=== PATIENT | male | born 1960 | race Caucasian/White ===

== ENCOUNTER 2018-06-05 22:07 | Observation (INO) | payer OTHER ==
[2018-06-05] MEDS ORDERED: MORPHINE 4 MG/ML SYR ONE ×2 (22:39→23:47)
[2018-06-05] MEDS ORDERED: KETOROLAC 30 MG/ML INJ ONE (22:39)
[2018-06-05] MEDS ORDERED: NA CHLORIDE 0.9% 1,000 ML ONE (22:40)
[2018-06-05] MEDS ORDERED: ONDANSETRON 4 MG/2 ML VIAL ONE (22:40)
[2018-06-05 22:56] LABS: Absolute Lymphocytes (CBC) 1.5 K/uL (0.7-4.9); Absolute Monocytes 0.9 K/uL (0.1-1.3); Absolute Neutrophil 11.1 K/uL (1.8-8.0); Basophils % 0.4 % (0-1.3); Eosinophils % 0.8 % (0-4.4); Lymphocytes % 11.2 % (15.3-44.8); MCH 30.9 pg (27.0-35.0); MCV 91.3 fL (80-100); MPV 8.6 fL (7.6-11.3); Monocytes % 6.3 % (3.3-12.3); RBC Red Blood Cell Count 5.03 M/uL (4.33-5.43)
[2018-06-05 23:12] LABS: Albumin 4.1 g/dL (3.4-5.0); Bilirubin Direct 0.1 mg/dL (0-0.2); Bilirubin Total 0.4 mg/dL (0.2-1.0); Potassium 3.9 mmol/L (3.5-5.1); Protein, Total 7.4 g/dL (6.4-8.2)
--- NOTE | 2018-06-05 23:57 | EDPHYS ---
Physician Documentation [facility] Name: Chau Rubio Age: 58 yrs Sex: Male : 1960 Arrival Date: 06/05/2018 Time: 22:10 Bed 28 Private MD: ED Physician Keith Tristan HPI: 06/05 22:31 This 58 yrs old Male presents to ER via Ambulatory with complaints of phong Possible Kidney Stone, Urinary Retention. 22:31 The patient complains of pain in the right mid back and right low back. The pain phong radiates to the right mid back and right low back. Onset: The symptoms/episode began/occurred 1 day(s) ago. Modifying factors: The symptoms are alleviated by nothing. the symptoms are aggravated by nothing. The patient presents with pain that is acute, with no known mechanism of injury. The symptoms are located in the right mid back and right low back. Onset: The symptoms/episode began/occurred today. Associated signs and symptoms: Pertinent positives: hematuria, nausea, vomiting. Modifying factors: The patient symptoms are alleviated by nothing, the patient symptoms are aggravated by nothing. Historical: - Allergies: 22:15 PENICILLINS; fc - Home Meds: 22:15 metformin 500 mg Oral tab 1 tab nightly [Active]; cholesterol medication [Active]; fc - PMHx: 22:15 Kidney stones; Diabetes - NIDDM; High Cholesterol; fc 22:17 cancer - prostate; knee surg; fc - PSHx: 22:15 Lithotripsy; kidney stone removal; Hernia repair; fc 22:17 Knee surgery; prostate surg; fc - Immunization history:: Last tetanus immunization: up to date. - Social history:: Smoking status: Patient/guardian denies using tobacco. - Ebola Screening: : Patient negative for fever greater than or equal to 101.5 degrees Fahrenheit, and additional compatible Ebola Virus Disease symptoms Patient denies exposure to infectious person Patient denies travel to an Ebola-affected area in the 21 days before illness onset. - Family history:: not pertinent. ROS: 22:31 Constitutional: Negative for fever, chills, and weight loss, Eyes: Negative for injury, phong pain, redness, and discharge, ENT: Negative for injury, pain, and discharge, Neck: Negative for injury, pain, and swelling, Cardiovascular: Negative for chest pain, palpitations, and edema, Respiratory: Negative for shortness of breath, cough, wheezing, and pleuritic chest pain, : Negative for injury, bleeding, discharge, and swelling, MS/Extremity: Negative for injury and deformity, Skin: Negative for injury, rash, and discoloration, Neuro: Negative for headache, weakness, numbness, tingling, and seizure, Psych: Negative for depression, anxiety, suicide ideation, homicidal ideation, and hallucinations, Allergy/Immunology: Negative for hives, rash, and allergies, Endocrine: Negative for neck swelling, polydipsia, polyuria, polyphagia, and marked weight changes, Hematologic/Lymphatic: Negative for swollen nodes, abnormal bleeding, and unusual bruising. 22:31 Abdomen/GI: Positive for abdominal pain, of the anterior aspect of right lateral abdomen, posterior aspect of right lateral abdomen and right lower quadrant. Exam: 22:31 Constitutional: This is a well developed, well nourished patient who is awake, alert, phong and in no acute distress. Head/Face: Normocephalic, atraumatic. Eyes: Pupils equal round and reactive to light, extra-ocular motions intact. Lids and lashes normal. Conjunctiva and sclera are non-icteric and not injected. Cornea within normal limits. Periorbital areas with no swelling, redness, or edema. ENT: Nares patent. No nasal discharge, no septal abnormalities noted. Tympanic membranes are normal and external auditory canals are clear. Oropharynx with no redness, swelling, or masses, exudates, or evidence of obstruction, uvula midline. Mucous membranes moist. Neck: Trachea midline, no thyromegaly or masses palpated, and no cervical lymphadenopathy. Supple, full range of motion without nuchal rigidity, or vertebral point tenderness. No Meningismus. Chest/axilla: Normal chest wall appearance and motion. Nontender with no deformity. No lesions are appreciated. Cardiovascular: Regular rate and rhythm with a normal S1 and S2. No gallops, murmurs, or rubs. Normal PMI, no JVD. No pulse deficits. Respiratory: Lungs have equal breath sounds bilaterally, clear to auscultation and percussion. No rales, rhonchi or wheezes noted. No increased work of breathing, no retractions or nasal flaring. Male : Normal genitalia with no discharge or lesions. Skin: Warm, dry with normal turgor. Normal color with no rashes, no lesions, and no evidence of cellulitis. MS/ Extremity: Pulses equal, no cyanosis. Neurovascular intact. Full, normal range of motion. Neuro: Awake and alert, GCS 15, oriented to person, place, time, and situation. Cranial nerves II-XII grossly intact. Motor strength 5/5 in all extremities. Sensory grossly intact. Cerebellar exam normal. Normal gait. Psych: Awake, alert, with orientation to person, place and time. Behavior, mood, and affect are within normal limits. 22:31 Abdomen/GI: Inspection: abdomen appears normal, Bowel sounds: normal, Palpation: nontender, Liver: no appreciated palpable abnormalities. Vital Signs: 22:15 BP 172 / 73; Pulse 71; Resp 18; Temp 98.0(O); Pulse Ox 96% on R/A; Weight 90.72 kg (R); fc Height 5 ft. 8 in. (172.72 cm) (R); Pain 10/10; 23:11 BP 138 / 68; Pulse 55; Pulse Ox 93% on R/A; rv 06/06 00:37 BP 134 / 68; Pulse 52; Pulse Ox 94% on R/A; rv 06/05 22:15 Body Mass Index 30.41 (90.72 kg, 172.72 cm) fc MDM: 06/05 22:25 Patient medically screened. [facility] 22:33 Data reviewed: vital signs, nurses notes, lab test result(s), radiologic studies, phong doppler. 06/05 22:30 Order name: Amylase, Serum; Complete Time: 23:51 [facility] 06/05 22:30 Order name: Basic Metabolic Panel; Complete Time: 23:51 [facility] 06/05 22:30 Order name: CBC with Diff; Complete Time: 23:51 [facility] 06/05 22:30 Order name: Creatinine for Radiology; Complete Time: 23:51 [facility] 06/05 22:30 Order name: Hepatic Function; Complete Time: 23:51 [facility] 06/05 22:30 Order name: Lipase; Complete Time: 23:51 [facility] 06/05 22:30 Order name: Urine Microscopic Only [facility] 06/05 22:30 Order name: Abdomen 1 View (KUB) XRAY [facility] 06/05 22:30 Order name: Urine Culture [facility] 06/05 22:30 Order name: CT Stone Protocol [facility] 08/08 00:02 Order name: Abdomen 1 View (KUB) [facility] 06/05 22:30 Order name: IV Saline Lock; Complete Time: 22:32 [facility] 06/05 22:30 Order name: Labs collected and sent; Complete Time: 22:32 [facility] 06/06 00:02 Order name: CONS Physician Consult [facility] 06/06 00:05 Order name: NPO [facility] Administered Medications: 22:25 Drug: TORadol 30 mg Route: IVP; Site: left antecubital; rv 23:10 Follow up: Response: No adverse reaction; Pain is decreased rv 22:25 Drug: morphine 4 mg Route: IVP; Site: left antecubital; rv 23:10 Follow up: Response: No adverse reaction; Pain is decreased rv 22:25 Drug: Zofran 4 mg Route: IVP; Site: left antecubital; rv 23:10 Follow up: Response: No adverse reaction; Pain is decreased rv 22:46 Drug: NS 0.9% 1000 ml Route: IV; Rate: 1 bolus; Site: left antecubital; rv 06/06 01:19 Follow up: IV Status: Completed infusion rv 06/05 23:51 Drug: morphine 4 mg Route: IVP; Site: left antecubital; rv 06/06 01:19 Follow up: Response: No adverse reaction rv 00:18 Drug: NS 0.9% 1000 ml Route: IV; Rate: 1 bolus; Site: left antecubital; rv 01:19 Follow up: IV Status: Completed infusion rv 00:18 Drug: Mucomyst - Acetylcysteine 600 mg Route: PO; rv 01:19 Follow up: Response: No adverse reaction rv Disposition: 06/05/18 23:56 Hospitalization ordered by Neville Guillen for Observation. Preliminary diagnosis are Hydronephrosis with renal and ureteral calculous obstruction - 5 mm distal right ureter calculi, Type 2 diabetes mellitus, Unspecified kidney failure. - Bed requested for Telemetry/MedSurg (observation). - Status is Observation. rv - Condition is Stable. - Problem is new. - Symptoms have improved. UTI on Admission? No Signatures: Dispatcher [employer] [facility] Hal Mendoza rg2 Keith Tristan MD MD cha Chretien, Felicia, RN RN Robin Mcintyre RN RN rv Corrections: (The following items were deleted from the chart) :06/05 23:56 Hospitalization Ordered by Neville Guillen MD for Observation. Preliminary rg2 diagnosis is Hydronephrosis with renal and ureteral calculous obstruction - 5 mm distal right ureter calculi; Type 2 diabetes mellitus; Unspecified kidney failure. Bed requested for Telemetry/MedSurg (observation). Status is Observation. Condition is Stable. Problem is new. Symptoms have improved. UTI on Admission? No. phong 06/06 01:20 01:06/05/2018 23:56 Hospitalization Ordered by Neville Guillen MD for Observation. rv Preliminary diagnosis is Hydronephrosis with renal and ureteral calculous obstruction - 5 mm distal right ureter calculi; Type 2 diabetes mellitus; Unspecified kidney failure. Bed requested for Telemetry/MedSurg (observation). Status is Observation. Condition is Stable. Problem is new. Symptoms have improved. UTI on Admission? No. rg2
--- NOTE | 2018-06-05 23:57 | ER ---
Nurse's Notes [facility] Name: Chau Rubio Age: 58 yrs Sex: Male : 1960 Arrival Date: 06/05/2018 Time: 22:10 Bed 28 Private MD: Diagnosis: Hydronephrosis with renal and ureteral calculous obstruction-5 mm distal right ureter calculi;Type 2 diabetes mellitus;Unspecified kidney failure Presentation: 06/05 22:12 Presenting complaint: Patient states: that he has pain to right flank and thinks he has fc a kidney stone. Also unable to urinate. Last void was at 1600. Transition of care: patient was not received from another setting of care. Onset of symptoms was June 05, 2018. Risk Assessment: Do you want to hurt yourself or someone else? Patient reports no desire to harm self or others. Care prior to arrival: None. 22:12 Method Of Arrival: Ambulatory 22:12 Acuity: ABRAHAN 3 22:44 Initial Sepsis Screen: Does the patient meet any 2 criteria? No. Patient's initial rv sepsis screen is negative. Does the patient have a suspected source of infection? No. Patient's initial sepsis screen is negative. Historical: - Allergies: 22:15 PENICILLINS; fc - Home Meds: 22:15 metformin 500 mg Oral tab 1 tab nightly [Active]; cholesterol medication [Active]; fc - PMHx: 22:15 Kidney stones; Diabetes - NIDDM; High Cholesterol; fc 22:17 cancer - prostate; knee surg; fc - PSHx: 22:15 Lithotripsy; kidney stone removal; Hernia repair; 22:17 Knee surgery; prostate surg; fc - Immunization history:: Last tetanus immunization: up to date. - Social history:: Smoking status: Patient/guardian denies using tobacco. - Ebola Screening: : Patient negative for fever greater than or equal to 101.5 degrees Fahrenheit, and additional compatible Ebola Virus Disease symptoms Patient denies exposure to infectious person Patient denies travel to an Ebola-affected area in the 21 days before illness onset. - Family history:: not pertinent. Screenin:17 Abuse screen: Denies threats or abuse. Nutritional screening: No deficits noted. fc Tuberculosis screening: No symptoms or risk factors identified. Fall Risk None identified. Assessment: 22:15 General: Appears in no apparent distress. uncomfortable, Behavior is calm, cooperative. rv 22:15 Pain: Complains of pain in FLANK PAIN ON THE RIGHT AND LOWER ABDMOEN/BLADDER. Pain rv currently is 8 out of 10 on a pain scale. Neuro: Level of Consciousness is awake, alert, obeys commands, Oriented to person, place, time, situation. Cardiovascular: Capillary refill < 3 seconds. Respiratory: Airway is patent. GI: Bowel sounds present X 4 quads. Abd is soft and non tender. : No signs and/or symptoms were reported regarding the genitourinary system. EENT: No signs and/or symptoms were reported regarding the EENT system. Derm: Skin is intact. 23:14 Reassessment: Patient appears in no apparent distress at this time. Patient and/or rv family updated on plan of care and expected duration. Pain level reassessed. Patient is alert, oriented x 3, equal unlabored respirations, skin warm/dry/pink. PAIN DECREASED. 06/06 00:39 Reassessment: Patient appears in no apparent distress at this time. Patient and/or rv family updated on plan of care and expected duration. Pain level reassessed. Patient is alert, oriented x 3, equal unlabored respirations, skin warm/dry/pink. AWAITING ADMISSION ORDERS. Vital Signs: 06/05 22:15 BP 172 / 73; Pulse 71; Resp 18; Temp 98.0(O); Pulse Ox 96% on R/A; Weight 90.72 kg (R); Height 5 ft. 8 in. (172.72 cm) (R); Pain 10/10; 23:11 BP 138 / 68; Pulse 55; Pulse Ox 93% on R/A; rv 06/06 00:37 BP 134 / 68; Pulse 52; Pulse Ox 94% on R/A; rv 06/05 22:15 Body Mass Index 30.41 (90.72 kg, 172.72 cm) ED Course: 06/05 22:10 Patient arrived in ED. es 22:13 Triage completed. fc 22:15 No provider procedures requiring assistance completed. Inserted saline lock: 20 gauge rv in left antecubital area, using aseptic technique. 22:17 Arm band placed on Patient placed in an exam room, on a stretcher. fc 22:18 Patient has correct armband on for positive identification. Bed in low position. Call light in reach. 22:25 Keith Tristan MD is Attending Physician. phong 22:[address] 22:41 CT completed. Patient tolerated procedure well. Patient moved to radiology. ca 22:49 CT Stone Protocol In Process Unspecified. EDMS 22:53 Abdomen 1 View (KUB) XRAY In Process Unspecified. EDMS 23:14 Awaiting radiology results. rv 23:54 Neville Guillen MD is Hospitalizing Provider. [facility] 06/06 01:18 Patient admitted, IV remains in place. intact. rv Administered Medications: 06/05 22:25 Drug: TORadol 30 mg Route: IVP; Site: left antecubital; rv 23:10 Follow up: Response: No adverse reaction; Pain is decreased rv 22:25 Drug: morphine 4 mg Route: IVP; Site: left antecubital; rv 23:10 Follow up: Response: No adverse reaction; Pain is decreased rv 22:25 Drug: Zofran 4 mg Route: IVP; Site: left antecubital; rv 23:10 Follow up: Response: No adverse reaction; Pain is decreased rv 22:46 Drug: NS 0.9% 1000 ml Route: IV; Rate: 1 bolus; Site: left antecubital; rv 06/06 01:19 Follow up: IV Status: Completed infusion rv 06/05 23:51 Drug: morphine 4 mg Route: IVP; Site: left antecubital; rv 06/06 01:19 Follow up: Response: No adverse reaction rv 00:18 Drug: NS 0.9% 1000 ml Route: IV; Rate: 1 bolus; Site: left antecubital; rv 01:19 Follow up: IV Status: Completed infusion rv 00:18 Drug: Mucomyst - Acetylcysteine 600 mg Route: PO; rv 01:19 Follow up: Response: No adverse reaction rv Outcome: 06/05 23:56 Decision to Hospitalize by Provider. [facility] 06/06 01:17 Admitted to Tele accompanied by nurse, via wheelchair, room 420, with chart, Report rv called to HALLIE Condition: good 01:20 Patient left the ED. rv Signatures: Dispatcher [employer] Keith Rizzo MD MD cha Salyer, Edna es Chretien, Felicia, RN RN fc Warren, Shannon sw Jordan, Nathan nj Vicente, Ronaldo, RN RN rv Corrections: (The following items were deleted from the chart) 06/05 22:17 22:15 Pulse 71bpm; Resp 18bpm; Pulse Ox 96% RA; Temp 98.0F Oral; 90.72 kg Reported; fc Height 5 ft. 8 in. Reported; BMI: 30.4; Pain 08/08; fc 06/06 01:19 01:17 Admitted to Tele accompanied by nurse, via wheelchair, room 429, with chart, rv Report called to HALLIE baker
[2018-06-06] MEDS ORDERED: ACETYLCYST 6,000 MG/30 ML VIAL ONE (00:16)
[2018-06-06] MEDS ORDERED: NA CHLORIDE 0.9% 1,000 ML ONE ×2 (00:29→12:34)
--- NOTE | 2018-06-06 01:16 | P.HP ---
Certification for Inpatient Patient admitted to: Observation With expected LOS: <2 Midnights Practitioner: I am a practitioner with admitting privileges, knowledge of patient current condition, hospital course, and medical plan of care. Services: Services provided to patient in accordance with Admission requirements found in Title 42 Section 412.3 of the Code of Federal Regulations Patient History Date of Service: 06/06/18 Reason for admission: obstructive ureteral stone History of Present Illness: Mr Rubio is a 58 years old male with history of DM II, nephrolithiasis, dyslipidemia who start yesterday afternoon with right flank pain, radiated to right lower quadrant. Intensity is 10/10. He has had this kind of pain in the past. He denied nausea, vomiting, fever or chills. The patient is unable to urinate, last time was 1600 last afternoon. Lab work in ED shows 13.7 WBC, Creatinine is 1.7. CT abdomen and pelvis is remarkable for a right distal ureteral stone, about 5 mm, leading with moderate right hydronephrosis and hydroureter. Allergies Penicillins Allergy (Verified 06/06/18 00:22) Itching/Hives/Rash - Past Medical/Surgical History -: DM II -: kidney stones -: prostate cancer -: lithotripsy -: hernia repair -: knee surgery - Family History Family History: Reviewed- Non-Contributory - Social History Smoking Status: Former smoker Alcohol use: Yes CD- Drugs: No Place of Residence: Home Review of Systems 10-point ROS is otherwise unremarkable Physical Examination - Physical Exam General: Alert, In no apparent distress HEENT: Atraumatic, PERRLA, Mucous membr. moist/pink, EOMI, Sclerae nonicteric Neck: Supple, 2+ carotid pulse no bruit, No LAD, Without JVD or thyroid abnormality Respiratory: Clear to auscultation bilaterally, Normal air movement Cardiovascular: Regular rate/rhythm, Normal S1 S2 Gastrointestinal: Normal bowel sounds, Tenderness (right lower quadrant, right flank) Musculoskeletal: No tenderness Integumentary: No rashes Neurological: Normal speech, Normal strength at 5/5 x4 extr, Normal tone, Normal affect Lymphatics: No axilla or inguinal lymphadenopathy - Studies Laboratory Data (last 24 hrs) 06/05/18 22:15: Creatinine 1.70 H 06/05/18 22:15: WBC 13.7 H, Hgb 15.6, Hct 46.0, Plt Count 251 08/07/18 22:15: Sodium 144, Potassium 3.9, BUN 22 H, Creatinine 1.70 H, Glucose 134 H, Total Bilirubin 0.4, AST 13 L, ALT 32, Alkaline Phosphatase 53, Amylase 43, Lipase 151 Assessment and Plan - Problems (Diagnosis) (1) Ureteral stone with hydronephrosis Current Visit: Yes Status: Acute (2) Hydroureter Current Visit: Yes Status: Acute (3) Diabetes mellitus Current Visit: Yes Status: Acute Qualifiers: Diabetes mellitus type: type 2 Diabetes mellitus detention insulin use: without detention use Diabetes mellitus complication status: with unspecified complications Qualified Code(s): E11.8 - Type 2 diabetes mellitus with unspecified complications - Plan The patient will be admitted to the hospital due to obstructive right ureteral stone. Dr Barraza has been consulted, and will see the patient in AM. Will keep him NPO for potential cystoscopy tomorrow. Will order empiric antibiotic treatment. - Advance Directives Does patient have a Living Will: No Does patient have a Durable POA for Healthcare: No - Code Status/Comfort Care Code Status Assessed: Yes Code Status: Full Code
[2018-06-06] MEDS ORDERED: ACETAMINOPHEN 500 MG TAB PO PRN (01:30)
[2018-06-06] MEDS ORDERED: ONDANSETRON 4 MG/2 ML VIAL IV PRN (01:30)
[2018-06-06] MEDS: MORPHINE 4 MG/ML SYR IV PRN ×2 (01:56→05:48)
[2018-06-06] MEDS: NA CHLORIDE 0.9% 1,000 ML IV SCH ×2 (01:56→09:00)
[2018-06-06] MEDS ORDERED: Levofloxacin500mg IV 500 MG/100 ML BAG IV SCH (02:00)
[2018-06-06] MEDS: INSULIN -REGULAR HUMAN 50 UNIT/0.5 ML ML SQ SCH ×2 (05:51→12:00)
--- NOTE | 2018-06-06 06:52 | RAD REPORT ---
EXAM DESCRIPTION: CT - Stone Protocol - 06/06/2018 4:39 am CLINICAL HISTORY: Right flank pain, dysuria, history of kidney stones A preliminary written report was provided at the time of the study, and the report was reviewed prio r to final dictation. COMPARISON: CT stone December 2016 TECHNIQUE: Axial 5 mm thick images were obtained without oral or IV contrast. The [id number] span s the entirety of the system including uppermost abdomen and lung bases. All CT scans are performed using dose optimization technique as appropriate and may include automated exposure control or mA/KV adjustment according to patient size. FINDINGS: Moderate right-sided hydronephrosis is present secondary to a 5 mm distal right ureteral c alculus. Calculus is approximately 3 cm from the UVJ. No other ureteral calculi. There is a [address] calcification lower pole calyx on the right. Right-sided perinephric stranding seen. No left-side d calcifications or hydronephrosis. No suspicious renal masses. Isodense masses and pyelonephritis ar e not excluded on a stone protocol CT scan. Urinary bladder is contracted limiting assessment. Bladde r calculus is not suspected. Imaged portions of the liver, spleen and pancreas show no suspicious findings on non-contrast imaging . No gallbladder or biliary tree abnormality identified. No significant adrenal finding. No suspicious bowel findings. No mass or bulky lymphadenopathy. Left inguinal hernia surgical changes are noted. There is a small f at filled right inguinal hernia. No free air, free fluid or inflammatory stranding. No significant bony abnormality. IMPRESSION: Moderate right-sided hydronephrosis secondary to a 5 millimeter distal ureteral calculus . Stone is approximately 3 cm from the UVJ. Nonobstructing 5 mm calcification lower pole calyx on the right. Isodense masses and pyelonephritis are not excluded on stone protocol technique. Postsurgical changes to the left inguinal canal. Small right inguinal hernia containing only fat.
--- NOTE | 2018-06-06 06:54 | RAD REPORT ---
EXAM DESCRIPTION: RAD - Abdomen 1 View (KUB) - 06/05/2018 10:54 pm CLINICAL HISTORY: Right flank pain COMPARISON: CT study same date, KUB April 2017 FINDINGS: A 5 mm irregular shaped calcific density is present in the lower right pelvis. Size and lo cation would correspond to the distal right ureteral stone seen on the CT examination. This density w as not present on April 2017 study. No calcifications confirmed overlying either kidney. The lower ashley e calcification of the right kidney on the CT study is not clearly seen on this examination. No obstruction, free air or pneumatosis. Bowel gas pattern is nonspecific. Left inguinal hernia surgi christelle changes noted. No significant bony findings IMPRESSION: Approximately 5 mm irregular calcification lower right pelvis suspected to be obstructin g ureteral calculus.
--- NOTE | 2018-06-06 10:25 | P.PN ---
Subjective Date of Service: 06/06/18 Primary Care Provider: Dr. Hill([facility]); Urology-Dr. Barraza Chief Complaint: obstructive ureteral stone Subjective: Other (Pain controlled.) Physical Examination - Vital Signs Temperature: 97.0 F Blood Pressure: 134/70 Pulse: 61 Respirations: 18 Pulse Ox (%): 94 - Physical Exam General: Alert, In no apparent distress, Oriented x3, Cooperative HEENT: Atraumatic Neck: Supple Respiratory: Clear to auscultation bilaterally, Normal air movement Cardiovascular: Normal pulses, Regular rate/rhythm Gastrointestinal: Normal bowel sounds, Soft and benign, Non-distended, No masses , No rebound, No guarding, Tenderness (Mild pain to the right flank) Musculoskeletal: No erythema, No tenderness, No warmth Integumentary: No erythema, No warmth, No cyanosis Neurological: Normal speech, Normal strength at 5/5 x4 extr, Normal tone, Normal affect - Studies Laboratory Data (last 24 hrs) 06/05/18 22:15: Creatinine 1.70 H 06/05/18 22:15: WBC 13.7 H, Hgb 15.6, Hct 46.0, Plt Count 251 06/05/18 22:15: Sodium 144, Potassium 3.9, BUN 22 H, Creatinine 1.70 H, Glucose 134 H, Total Bilirubin 0.4, AST 13 L, ALT 32, Alkaline Phosphatase 53, Amylase 43, Lipase 151 Medications List Reviewed: Yes Assessment & Plan - Problems (Diagnosis) (1) Acute renal injury Current Visit: Yes Status: Acute Plan: Secondary to right ureteral stone with hydronephrosis. Patient currently NPO. Urology consulted. Patient will likely need urological intervention. Await further recommendation. (2) Diabetes mellitus Onset Date: 06/06/18 Current Visit: Yes Status: Chronic Plan: Will hold metformin at this time. Will continue with Accu-Cheks and sliding scale. Will check A1c. Qualifiers: Diabetes mellitus type: type 2 Diabetes mellitus [facility] insulin use: without intermodal customer service use Diabetes mellitus complication status: with unspecified complications Qualified Code(s): E11.8 - Type 2 diabetes mellitus with unspecified complications (3) Hydroureter Onset Date: 06/06/18 Current Visit: Yes Status: Acute Plan: Secondary to ureteral stone. Continue as above. Urology plans for intervention. (4) Ureteral stone with hydronephrosis Onset Date: 06/06/18 Current Visit: Yes Status: Acute Plan: 5 mm right ureteral stone noted to the distal ureter with hydronephrosis. Patient NPO for possible urological intervention. Urology consulted. (5) Nephrolithiasis Current Visit: Yes Status: Chronic Plan: 3 mm nonobstructing stone noted (6) Obesity Current Visit: Yes Status: Chronic Plan: Will address lifestyle modification education. Qualifiers: Obesity type: unspecified obesity type Obesity classification: adult class 1 (BMI 30 - 34.9) Serious obesity comorbidity presence: with serious comorbidity Body mass index: BMI 30.0-30.9 Qualified Code(s): E66.9 - Obesity, unspecified; Z68.30 - Body mass index (BMI) 30.0-30.9, adult (7) Hyperlipidemia Current Visit: Yes Status: Chronic Plan: Will hold his medication at this time. Qualifiers: Hyperlipidemia type: unspecified Qualified Code(s): E78.5 - Hyperlipidemia , unspecified Discharge Plan: Home Plan to discharge in: 24 Hours Time Spent Managing Pts Care (In Minutes): 55
[2018-06-06] MEDS ORDERED: NACHLORIDE 0.45% 1,000 ML IV SCH (11:00)
[2018-06-06] MEDS ORDERED: GENTAMICIN 100 MG/100 ML BAG 100 MG/100 ML BAG IV ONE (12:44)
[2018-06-06] MEDS ORDERED: PROPOFOL 200 MG/20 ML VIAL IV ONE (12:47)
[2018-06-06] MEDS ORDERED: LIDOCAINE 2% MPF 5 ML VIAL ONE (12:48)
[2018-06-06] MEDS ORDERED: FENTANYL CITR 100 MCG/2 ML ONE (12:48)
[2018-06-06] MEDS ORDERED: Mastisol Adhesive Liq ONE (13:43)
--- NOTE | 2018-06-06 14:14 | RAD REPORT ---
EXAM DESCRIPTION: RAD - Urethrocystogrphy Retrograde - 06/06/2018 2:09 pm CLINICAL HISTORY: RETROGRADE RT KIDNEY STONE COMPARISON: No comparisons FINDINGS: Fluoroscopic imaging of the abdomen is submitted as part of a retrograde urethrocystogram. Details of the procedure and diagnostic findings are not available. Total fluoro time: 37 seconds.
[2018-06-06 14:39] LABS: Urine Bacteria <20 /HPF (NONE SEEN); Urine RBC LOADED /HPF (NONE SEEN)
[2018-06-06 14:40] LABS: Urine Culture Reflex Order NOT NEEDED
--- NOTE | 2018-06-06 16:35 | P.DS ---
Admission Date: 06/05/18 Discharge Date: 06/06/18 Primary Care Provider: Dr. Hill([facility]); Urology-Dr. Barraza Disposition: ROUTINE DISCHARGE Discharge Condition: GOOD Reason for Admission: obstructive ureteral stone Consultations: Urology-Dr. Barraza Procedures: CT scan: COMPARISON: CT stone December 2016 TECHNIQUE: Axial 5 mm thick images were obtained without oral or IV contrast. The [id number] spans the entirety of the system including uppermost abdomen and lung bases. All CT scans are performed using dose optimization technique as appropriate and may include automated exposure control or mA/KV adjustment according to patient size. FINDINGS: Moderate right-sided hydronephrosis is present secondary to a 5 mm distal right ureteral calculus. Calculus is approximately 3 cm from the UVJ. No other ureteral calculi. There is a 5 millimeter calcification lower pole calyx on the right. Right-sided perinephric stranding seen. No left-sided calcifications or hydronephrosis. No suspicious renal masses. Isodense masses and pyelonephritis are not excluded on a stone protocol CT scan. Urinary bladder is contracted limiting assessment. Bladder calculus is not suspected. Imaged portions of the liver, spleen and pancreas show no suspicious findings on non-contrast imaging. No gallbladder or biliary tree abnormality identified. No significant adrenal finding. No suspicious bowel findings. No mass or bulky lymphadenopathy. Left inguinal hernia surgical changes are noted. There is a small fat filled right inguinal hernia. No free air, free fluid or inflammatory stranding. No significant bony abnormality. IMPRESSION: Moderate right-sided hydronephrosis secondary to a 5 millimeter distal ureteral calculus. Stone is approximately 3 cm from the UVJ. Nonobstructing 5 mm calcification lower pole calyx on the right. Isodense masses and pyelonephritis are not excluded on stone protocol technique. Postsurgical changes to the left inguinal canal. Small right inguinal hernia containing only fat. - Problems (1) Acute renal injury Current Visit: Yes Status: Acute (2) Diabetes mellitus Onset Date: 06/06/18 Current Visit: Yes Status: Chronic Qualifiers: Diabetes mellitus type: type 2 Diabetes mellitus [facility] insulin use: without buttermaker helper use Diabetes mellitus complication status: with unspecified complications Qualified Code(s): E11.8 - Type 2 diabetes mellitus with unspecified complications (3) Hydroureter Onset Date: 06/06/18 Current Visit: Yes Status: Acute (4) Ureteral stone with hydronephrosis Onset Date: 06/06/18 Current Visit: Yes Status: Acute (5) Nephrolithiasis Current Visit: Yes Status: Chronic (6) Obesity Current Visit: Yes Status: Chronic Qualifiers: Obesity type: unspecified obesity type Obesity classification: adult class 1 (BMI 30 - 34.9) Serious obesity comorbidity presence: with serious comorbidity Body mass index: BMI 30.0-30.9 Qualified Code(s): E66.9 - Obesity, unspecified; Z68.30 - Body mass index (BMI) 30.0-30.9, adult (7) Hyperlipidemia Current Visit: Yes Status: Chronic Qualifiers: Hyperlipidemia type: unspecified Qualified Code(s): E78.5 - Hyperlipidemia , unspecified Brief History of Present Illness: 58-year-old male presented to the ER with right flank pain. Patient had difficulty urinating as well. Patient with history of nephrolithiasis. Patient was evaluated emergency room found to have right ureteral stone with hydronephrosis. Patient was admitted for treatment. Hospital Course: Patient presented with right ureteral stone with hydronephrosis and acute renal injury. 5 mm distal right ureteral stone was noted. Another stone 5 mm in size was noted to the lower pole calyx on the right side. Patient with history of nephrolithiasis and previous stents. Patient was evaluated by urology. Urology recommended intervention. Patient had ureteroscopy with a dilation and removal of stone. A stent was also placed. Patient tolerated procedure well. Patient doing well after procedure. Patient will be discharged. At discharge patient will continue with Macrobid 50 mg once daily for 7 days, oxybutynin 10 mg 1 pill once daily, and a limited supply of Tylenol #3 will be provided. All prescriptions will be provided by urology. Recommendation for the patient to follow up with urology within 1 week to follow up this hospitalization. Patient has diabetes. Patient may continue with his medication-Glucophage. Recommendation is to maintain blood sugars less than 140 fasting and less than 200 after meals. Further adjustment can be done by his PCP. Patient has hyperlipidemia. Patient will continue with his medication- fenofibrate and Crestor. Patient had acute renal injury. This was mild. This should improve after stent placed. Recommendation to recheck lab-BMP in 1 week to monitor his progress. Vital Signs/Physical Exam: Temp Pulse Resp BP Pulse Ox 97.6 F 57 16 131/73 95 06/06/18 14:19 06/06/18 14:19 06/06/18 14:19 06/06/18 14:19 06/06/18 12:00 General: Alert, In no apparent distress, Oriented x3, Cooperative HEENT: Atraumatic Neck: Supple Respiratory: Clear to auscultation bilaterally, Normal air movement Cardiovascular: Normal pulses, Regular rate/rhythm Gastrointestinal: Normal bowel sounds, Soft and benign, Non-distended, No masses , No rebound, No guarding Musculoskeletal: No erythema, No tenderness, No warmth Integumentary: No tenderness/swelling, No erythema, No warmth, No cyanosis Neurological: Normal speech, Normal strength at 5/5 x4 extr, Normal tone Laboratory Data at Discharge: WBC 13.7 K/uL (4.3-10.9) H 06/05/18 22:15 Hgb 15.6 g/dL (13.6-17.9) 06/05/18 22:15 Hct 46.0 % (39.6-49.0) 06/05/18 22:15 Plt Count 251 K/uL (152-406) 06/05/18 22:15 Sodium 144 mmol/L (136-145) 06/05/18 22:15 Potassium 3.9 mmol/L (3.5-5.1) 06/05/18 22:15 BUN 22 mg/dL (7-18) H 06/05/18 22:15 Creatinine 1.70 mg/dL (0.55-1.3) H 06/05/18 22:15 Glucose 134 mg/dL (74-106) H 06/05/18 22:15 Total Bilirubin 0.4 mg/dL (0.2-1.0) 06/05/18 22:15 AST 13 U/L (15-37) L 06/05/18 22:15 ALT 32 U/L (12-78) 06/05/18 22:15 Alkaline Phosphatase 53 U/L (45-117) 06/05/18 22:15 Amylase 43 U/L (25-115) 06/05/18 22:15 Lipase 151 U/L (73-393) 06/05/18 22:15 Home Medications: Fenofibrate Nanocrystallized [Fenofibrate] 145 mg PO DAILY 06/06/18 Metformin HCl 500 mg PO DAILY 06/06/18 Rosuvastatin Calcium 10 mg PO DAILY 06/06/18 Patient Discharge Instructions: 1. Patient will need to follow up with PCP in 1 week to follow up this hospitalization. 2. Patient presented with right flank pain. Patient found to have right ureteral stone with hydronephrosis and mild acute renal injury. 5 mm distal right ureteral stone was noted. Patient was evaluated by urology. Urology recommended intervention. Patient had ureteroscopy with a dilation and removal of stone. A stent was also placed. At discharge patient continue will continue with Macrobid 50 mg once daily for 7 days, Oxybuytin 10 mg 1 pill once daily, and a limited supply of Tylenol #3 will be provided. Prescription medications provided by urology. Recommendation for the patient to follow up with Urology within one week. 3. Patient has diabetes. Patient may continue with his medication-Glucophage. Recommendation is to maintain blood sugars less than 140 fasting and less than 200 after meals. Further adjustment can be done by his PCP. 4. Patient has hyperlipidemia. Patient will continue with his medication-fenofibrate and Crestor. 5. Patient had acute renal injury. This was mild. This should improve after stent placed. Recommendation to recheck lab-BMP in 1 week to monitor his progress. Diet: AHA Activity: Ad matt Time spent managing pt's care (in minutes): 55
== END 2018-06-06 17:59 | disposition home or self-care (01) ==
LOC: ER 22:07 → ERHOLD 23:57 → 4TH 06-06 01:16
PROVIDERS: ADMIT Internal Medicine; ATTEND Family Medicine
PROC: 0T768DZ Dilation of Right Ureter with Intraluminal Device, Via Natural or Artificial Opening Endoscopic (ICD-10-PCS; 2018-06-06)
PROC: BT1D0ZZ Fluoroscopy of Right Kidney, Ureter and Bladder using High Osmolar Contrast (ICD-10-PCS; 2018-06-06)
PROC: 0TC68ZZ Extirpation of Matter from Right Ureter, Via Natural or Artificial Opening Endoscopic (ICD-10-PCS; principal; 2018-06-06 15:00)
DX: N13.2 Hydronephrosis with renal and ureteral calculous obstruction (principal); N17.9 Acute kidney failure, unspecified; E11.8 Type 2 diabetes mellitus with unspecified complications; E66.9 Obesity, unspecified; Z68.30 Body mass index [BMI] 30.0-30.9, adult; E78.5 Hyperlipidemia, unspecified; Z79.84 Long term (current) use of oral hypoglycemic drugs; Z85.46 Personal history of malignant neoplasm of prostate; Z87.891 Personal history of nicotine dependence; Z88.0 Allergy status to penicillin
CPT/HCPCS: 36415; 51610; 74018; 74176; 74450; 76377; 80048; 80076; 81015; 82150; 82360; 82962; 83690; 85025; 87086; 87088; 88300; 96361; 96374; 96375; 99285; G0378; J1580; J2405; J3010; J7030; Q9967

== ENCOUNTER 2022-12-14 08:43 | Emergency (ER) | payer OTHER ==
--- NOTE | 2022-12-14 09:25 | ER ---
Nurse's Notes [facility] Name: Chau Rubio Age: 62 yrs Sex: Male : 1960 Arrival Date: 12/14/2022 Time: 08:47 Bed 19 Private MD: Diagnosis: UTI/ Urinary tract infection, site not specified Presentation: 12/14 09:05 Chief complaint: Patient states: he is having urinary issues. patient denies pain, but ap3 is reporting difficulty urinating. patient denies any blood in the urine. Coronavirus screen: At this time, the client does not indicate any symptoms associated with coronavirus-19. Ebola Screen: No symptoms or risks identified at this time. Risk Assessment: Do you want to hurt yourself or someone else? Patient reports no desire to harm self or others. Onset of symptoms was December 06, 2022. 09:05 Method Of Arrival: Ambulatory ap3 09:05 Acuity: ABRAHAN 3 ap3 09:10 Initial Sepsis Screen: Does the patient meet any 2 criteria? No. Patient's initial ap3 sepsis screen is negative. Does the patient have a suspected source of infection? No. Patient's initial sepsis screen is negative. Triage Assessment: 09:09 General: Appears uncomfortable, Behavior is restless. Pain: Denies pain. Neuro: Level ap3 of Consciousness is awake, alert, obeys commands, Oriented to person, place, time, situation. Respiratory: Airway is patent Respiratory effort is even, unlabored. : Reports inability to void, difficulty voiding. Historical: - Allergies: 09:07 PENICILLINS; ap3 - Home Meds: 09:07 metformin 500 mg Oral tab 1 tab nightly [Active]; cholesterol medication [Active]; ap3 - PMHx: 09:07 CANCER - PROSTATE; Diabetes - NIDDM; High Cholesterol; Kidney stones; knee surg; ap3 - Immunization history:: Client reports receiving the 2nd dose of the Covid vaccine, Flu vaccine is up to date. - Social history:: Smoking status: Patient denies any tobacco usage or history of. Screenin:09 [facility] ED Fall Risk Assessment (Adult) History of falling in the last 3 months, ap3 including since admission No falls in past 3 months (0 pts). Abuse screen: Denies threats or abuse. Nutritional screening: No deficits noted. Tuberculosis screening: No symptoms or risk factors identified. Vital Signs: 09:05 BP 136 / 83; Pulse 69; Resp 18; Temp 99.0; Pulse Ox 97% ; ap3 09:05 Height 5 ft. 8 in. (172.72 cm); ap3 09:08 Weight 91.63 kg; ap3 11:24 BP 121 / 82; Pulse 73; Resp 18; Pulse Ox 98% ; jh5 09:08 Body Mass Index 30.71 (91.63 kg, 172.72 cm) ap3 ED Course: 08:47 Patient arrived in ED. rg4 08:50 Mary Anne Saldana FNP-C [facility]. kb 08:50 Danny Butler MD is Attending Physician. kb 09:07 Triage completed. ap3 09:09 Arm band placed on right wrist. ap3 09:44 CBC with Diff Sent. jh5 09:44 CMP Sent. jh5 09:44 Lipase Sent. jh5 09:44 Urine Microscopic Only Sent. 5 10:51 Cesar Mcclure MD is Referral Physician. kb 11:40 No provider procedures requiring assistance completed. IV discontinued, intact, jh5 bleeding controlled, No redness/swelling at site. Pressure dressing applied. 11:41 Patient has correct armband on for positive identification. Bed in low position. Call [facility] light in reach. Side rails up X 1. Administered Medications: 11:08 Drug: Rocephin (cefTRIAXone) 1 grams Route: IV; Rate: calculated rate; Site: right [facility] antecubital; Medication: 11:41 VIS not applicable for this client. 5 Outcome: 09:24 Discharge ordered by . 3 10:51 Discharge ordered by . kb 11:40 Discharged to home ambulatory. jh5 11:40 Condition: good 11:40 Discharge instructions given to patient, Instructed on discharge instructions, follow up and referral plans. medication usage, safety practices, Demonstrated understanding of instructions, follow-up care, medications, Prescriptions given X 1. 11:41 Patient left the ED. 5 Signatures: Mary Anne Saldana FNP-C FNP-Batsheva Trevino rg4 Claudia Simmons, RN RN ap3 Samira Santiago RN RN 5 Danny Butler MD MD bs3
--- NOTE | 2022-12-14 09:25 | EDPHYS ---
Physician Documentation [facility] Name: Chau Rubio Age: 62 yrs Sex: Male : 1960 Arrival Date: 12/14/2022 Time: 08:47 Bed 19 Private MD: ED Physician Danny Butler HPI: 12/14 09:19 This 62 yrs old Black Male presents to ER via Ambulatory with complaints of Urinary bs3 Problem. 10:36 The patient presents with urinary symptoms, dysuria, urinary frequency, difficulty kb urinating. Onset: The symptoms/episode began/occurred 1 week(s) ago. Modifying factors: The symptoms are alleviated by nothing, the symptoms are aggravated by urinating. Associated signs and symptoms: Pertinent positives: dysuria, Pertinent negatives: abdominal pain, constipation, diarrhea, fever, hematuria, nausea, vomiting. Severity of symptoms: At their worst the symptoms were moderate, in the emergency department the symptoms are unchanged. The patient has experienced similar episodes in the past. The patient has not recently seen a physician. Historical: - Allergies: 09:07 PENICILLINS; ap3 - Home Meds: 09:07 metformin 500 mg Oral tab 1 tab nightly [Active]; cholesterol medication [Active]; ap3 - PMHx: 09:07 CANCER - PROSTATE; Diabetes - NIDDM; High Cholesterol; Kidney stones; knee surg; ap3 - Immunization history:: Client reports receiving the 2nd dose of the Covid vaccine, Flu vaccine is up to date. - Social history:: Smoking status: Patient denies any tobacco usage or history of. ROS: 10:35 Constitutional: Negative for fever, chills, and weight loss. kb 10:35 : Positive for urinary symptoms, urinary frequency, burning with urination, difficulty urinating. 10:35 All other systems are negative. Exam: 10:37 Constitutional: This is a well developed, well nourished patient who is awake, alert, kb and in no acute distress. Head/Face: Normocephalic, atraumatic. ENT: Moist Mucous membranes Cardiovascular: Regular rate and rhythm with a normal S1 and S2. No gallops, murmurs, or rubs. No pulse deficits. Respiratory: Respirations even and unlabored. No increased work of breathing. Talking in full sentences Abdomen/GI: Soft, non-tender. No distention Back: No spinal tenderness. No costovertebral tenderness. Full range of motion. Skin: Warm, dry with normal turgor. Normal color. MS/ Extremity: Pulses equal, no cyanosis. Neurovascular intact. Full, normal range of motion. Neuro: Awake and alert, GCS 15, oriented to person, place, time, and situation. Moves all extremities. Normal gait. Psych: Awake, alert, with orientation to person, place and time. Behavior, mood, and affect are within normal limits. Vital Signs: 09:05 BP 136 / 83; Pulse 69; Resp 18; Temp 99.0; Pulse Ox 97% ; ap3 09:05 Height 5 ft. 8 in. (172.72 cm); ap3 09:08 Weight 91.63 kg; ap3 11:24 BP 121 / 82; Pulse 73; Resp 18; Pulse Ox 98% ; jh5 09:08 Body Mass Index 30.71 (91.63 kg, 172.72 cm) ap3 MDM: 09:04 Patient medically screened. kb 09:08 Data reviewed: vital signs, nurses notes. ED course: Patient is a 62-year-old male with kb a long history of kidney stones. Presents for difficulty urinating, dysuria for 1 week. Denies any hematuria, flank pain, fever, abdominal pain. No CVA tenderness on exam. No abdominal or suprapubic tenderness on exam. Will obtain serum labs, urine and CT stone.. 09:19 Differential diagnosis: UTI, urinary retention, prostatitis, urethritis. bs3 10:36 Differential diagnosis: calculus of ureter. kb 10:38 External Records Reviewed: Outpatient labs: creatinine 1.7 in the past, 1.4 today. kb 10:49 Historians other than the Patient: Spouse/Significant Other: . Counseling: I had a kb detailed discussion with the patient and/or guardian regarding: the historical points, exam findings, and any diagnostic results supporting the discharge/admit diagnosis, lab results, radiology results, the need for outpatient follow up, a urologist, to return to the emergency department if symptoms worsen or persist or if there are any questions or concerns that arise at home. ED course: Discussed all diagnostic results with pt and gave printed copy. Patient nontoxic in appearance, alert and oriented x4. Ambulatory with steady gait. Discussed need for follow-up with urology and antibiotics. Verbal understanding received.. 12/14 09:07 Order name: CBC with Diff kb 12/14 09:07 Order name: CMP kb 12/14 09:07 Order name: Lipase kb 12/14 09:07 Order name: Urine Microscopic Only kb 12/14 09:46 Order name: Urine Dipstick-Ancillary; Complete Time: 09:54 EDMS 12/14 10:01 Order name: Urine Microscopic Only; Complete Time: 10:01 EDMS 12/14 09:07 Order name: IV Saline Lock; Complete Time: 09:44 kb 12/14 09:07 Order name: Labs collected and sent; Complete Time: 09:44 kb 12/14 09:07 Order name: CT Stone Protocol kb 12/14 10:02 Order name: CT; Complete Time: 10:05 EDMS 12/14 10:03 Order name: CBC with Automated Diff; Complete Time: 10:05 EDMS 12/14 10:12 Order name: Comprehensive Metabolic Panel; Complete Time: 10:15 EDMS 12/14 10:12 Order name: Lipase; Complete Time: 10:15 EDMS 12/14 09:07 Order name: Urine Dipstick-Ancillary (obtain specimen); Complete Time: 09:44 kb Administered Medications: 11:08 Drug: Rocephin (cefTRIAXone) 1 grams Route: IV; Rate: calculated rate; Site: right [facility] antecubital; Disposition: 18:57 Co-signature as Attending Physician, Danny Butler MD. bs3 Disposition Summary: 12/14/22 10:51 Discharge Ordered Location: Home(12/14/22 10:51) kb Condition: Stable(12/14/22 10:51) kb Diagnosis - UTI/ Urinary tract infection, site not specified kb Followup: kb - With: Emergency Department - When: As needed - Reason: Worsening of condition Followup: kb - With: Private Physician - When: 2 - 3 days - Reason: Recheck today's complaints, Continuance of care, Re-evaluation by your physician Followup: kb - With: Cesar Mcclure MD - When: 1 - 2 days - Reason: Recheck today's complaints Discharge Instructions: - Discharge Summary Sheet kb - Urinary Tract Infection, Adult, [id number] kb Forms: - Medication Reconciliation Form kb - Thank You Letter kb - Antibiotic Education kb - Prescription Opioid Use kb Prescriptions: - cefpodoxime 100 mg Oral Tablet - take 1 tablet by ORAL route every 12 hours for 10 days take with food; 20 kb tablet; Refills: 0, Product Selection Permitted Signatures: Dispatcher [employer] ED Mary Anne Saldana FNP-C FNP-Ckb Prokisch, Amanda RN RN ap3 Samira Santiago RN RN jh5 Danny Butler MD MD bs3 Corrections: (The following items were deleted from the chart) 09:25 09:19 ED course: Urinalysis was performed is notable for protein in his urine his bs3 creatinine on his recent visit was 1.59, this is likely related to his uncontrolled diabetes and chronic renal insufficiency I advised him to follow-up with his primary care doctor to evaluate for his proteinuria tomorrow strict return precautions were given I considered acute intra-abdominal pathology and considered CT however he does not have significant pain his vital signs normalized, he had a recent CT scan he has no signs of Alexa's. bs3 09:25 09:24 Home bs3 bs3 09:25 09:24 new bs3 bs3 09:25 09:24 are unchanged bs3 bs3 09:25 09:24 Stable bs3 bs3 09:25 09:24 Proteinuria, unspecified bs3 bs3 09:37 09:19 He notes that since last night he has increased urinary frequency and some pain bs3 when he urinates he denies fevers chills nausea vomiting or abdominal pain he had similar symptoms in the past he does have a history of prostate cancer he notes that his ostomies are functioning normally he does report being here several days ago for abdominal pain and blood in his stool but that is not the complaint today no chest pain shortness of breath no rash or anything else. bs3 09:37 09:19 Constitutional: This is a well developed, well nourished patient who is awake, bs3 alert, and in no acute distress. Head/Face: Normocephalic, atraumatic. Eyes: Pupils equal round and reactive to light, extra-ocular motions intact. Lids and lashes normal. ENT: mmm, no posterior phyarngeal erythema Neck: Trachea midline, no thyromegaly, no neck stiffness Chest/axilla: Normal chest wall appearance and motion. Nontender with no deformity. No lesions are appreciated. Cardiovascular: Regular rate and rhythm with a normal S1 and S2. symmetric pulses in upper extremities Respiratory: Lungs have equal breath sounds bilaterally, clear to auscultation, no respiratory distress Abdomen/GI: Soft, non-tender, no rebound or guarding, he has 2 stomas 1 in the right upper quadrant 1 in the left lower quadrant the right upper quadrant is draining stool the left lower normal with a pink stoma he has no significant pain to palpation his exam is normal Back: No spinal tenderness. No costovertebral tenderness. Full range of motion. bs3 10:35 09:19 Constitutional: Negative for fever, chills bs3 kb 10:35 09:19 All other systems are negative, bs3 kb
[2022-12-14 09:46] LABS: Urine Blood 3+ (Negative); Urine Glucose Negative (Negative); Urine Protein 2+ (Negative); Urine pH 5.5 (5.0-7.0)
[2022-12-14 09:59] LABS: Urine Bacteria 20-50 /HPF (<20); Urine Mucus Slight /HPF (None Seen); Urine RBC >50 /HPF (None Seen); Urine WBC Clump Rare /HPF (None Seen)
[2022-12-14 09:59] LABS: Absolute Lymphocytes (CBC) 1.9 K/uL (0.7-4.9); Hematocrit 44.2 % (39.6-49.0); Lymphocytes % 13.8 % (15.3-44.8); MCV 90.1 fL (80-100)
--- NOTE | 2022-12-14 10:02 | RAD REPORT ---
EXAM DESCRIPTION: CT - Stone Protocol - 12/14/2022 9:20 am CLINICAL HISTORY: Kidney stones. Difficulty urinating. COMPARISON: 06/05/2018 TECHNIQUE: CT imaging of the abdomen and pelvis was performed without IV contrast. No IV contrast wa s given because of allergy, abnormal renal function, patient refusal or physician request. Oral contr ast was given. All CT scans are performed using dose optimization technique as appropriate and may include automated exposure control or mA/KV adjustment according to patient size. FINDINGS: No suspicious findings in the lung bases. The liver, spleen and pancreas show no suspicious findings. Gallbladder and biliary tree are also wit hout suspicious finding. No hydronephrosis or suspicious renal mass, within limits of noncontrast CT. Small exophytic bilatera l hypoattenuating cortical lesions approximating fluid density. The largest at the left mid pole has increased in size since 2018, today measuring 3.2 x 1.9 centimeter. Two foci of calcification are see n along the left renal mid pole, likely parenchymal. No evidence of radiodense calculi. No significan t adrenal finding. No dilated bowel loops or bowel wall thickening. Incidentally noted mild colonic diverticulosis. No f ree air, free fluid or inflammatory stranding. No hernia, mass or bulky lymphadenopathy. Two bladder diverticula, the largest arising from the right wall, measuring 4.3 x 2.5 centimeter. No bladder calc elan. No suspicious bony findings. Small umbilical hernia containing nondistended small bowel. Small fat containing right inguinal herni a. Sequelae of left inguinal hernia mesh repair. IMPRESSION: No hydroureteronephrosis or radiodense calculi. Bladder diverticula. Hypoattenuating cortical renal lesions bilaterally, suggestive of cysts although not well evaluated o n this noncontrast exam, demonstrating some interval increase in size since 2018. No other acute intra-abdominal process. Incidental findings as above.
[2022-12-14 10:11] LABS: Albumin 3.8 g/dL (3.4-5.0); Bilirubin Total 0.5 mg/dL (0.2-1.0); Potassium 3.9 mmol/L (3.5-5.1); Protein, Total 7.3 g/dL (6.4-8.2)
[2022-12-14] MEDS ORDERED: CEFTRIAXONE 1000 MG/VIAL ONE (11:05)
[2022-12-14 11:46] VITALS: TEMP 99
[2022-12-14 11:47] VITALS: BP 121/82; O2SAT 98
== END 2022-12-14 11:41 | disposition home or self-care (01) ==
LOC: ER 08:43
DX: N39.0 Urinary tract infection, site not specified (principal); E11.9 Type 2 diabetes mellitus without complications; E78.00 Pure hypercholesterolemia, unspecified; Z85.46 Personal history of malignant neoplasm of prostate; Z88.0 Allergy status to penicillin
CPT/HCPCS: 36415; 74176; 76377; 80053; 81003; 81015; 83690; 85025; 87086; 87088

== ENCOUNTER 2023-01-20 17:17 | Inpatient (IN) | payer OTHER ==
--- OUTSIDE RECORDS SUMMARY | 2023-01-20 17:21 | XMS REPORT | Clinical Summary ---
:1960 Author Organization [facility] MD [facility] Address [address] [place] [address] Care Team Providers Name Role Phone Ryan Cox MD Unavailable Rasta Kramer MD PhD Primary Care Provider Allergies Active Allergy Reactions Severity Noted Date Comments Codeine Other (See Comments) 10/01/2016 Other r eaction(s): Other Sweating Sweating Penicillins 01/12/2023 Medications Medication Sig Dispensed Refills Start Date End Date Status fenofibrate fenofibrate nanocrystallized 145 mg tablet 0 05/30/2022 Active nanocrystallized TAKE 1 TABLET BY MOUTH 1 TIME EACH DAY. (TRICOR) 145 mg tablet levoFLOXacin levofloxacin 500 mg tablet 0 Active (LEVAQUIN) 500 mg TAKE 1 TABLET EVERY 24 HOUR S BY ORAL ROUTE DIRECTED FOR 10 DAYS. tablet metFORMIN metformin ER 500 mg tablet,extended release 24 hr 0 02/23/2021 Active (GLUCOPHAGE-XR) 500 TAKE 2 TABLETS BY MOUTH IN THE MORNING AND 2 TABLETS IN THE EVENING. mg 24 hr tablet simvastatin (ZOCOR) simvastatin 40 mg tablet 0 05/30 Active 40 mg tablet TAKE 1 TABLET BY MOUTH EVERY NIGHT aspirin 81 mg EC Take 1 tablet (81 mg) 0 Active tablet by mouth. multivitamin tab Take by mouth. 0 Active tablet hy[address]cyamine Place 1 tablet (0.125 30 tablet 11 01/16/2023 Active (Levsin/SL) 0.125 mg mg) under the tongue SL tabletIndications: every 6 (six) hours Mass of urinary as needed for bladder cramping. levoFLOXacin Take 1 tablet (500 3 tablet 0 01/16/2023 Active (LEVAQUIN) 500 mg mg) by mouth daily. tabletIndications: Begin taking one day Mass of urinary prior to scheduled bladder procedure Active Problems Problem Noted Date Type 2 diabetes mellitus without complication 01/17/20 Mass of urinary bladder 01/10/2023 Malignant neoplasm of prostate 01/10/2023 Renal stone 01/10/2023 Diverticulitis of bladder 10/30/1989 Encounters Date Type Specialty Care Team Description 01/20/2023 Ancillary Procedure Radiology Tommy, Mass of urinary Saba bladder ISAAC Tolentino 01/20/2023 Travel 01/16/2023 Ancillary Procedure Radiology Rasta Kramer MD Cancer PhD 01/16/2023 Ancillary Procedure Radiology Rasta Kramer MD Cancer PhD 01/16/2023 Ancillary Procedure Radiology Rasta Kramer MD Cancer PhD 01/16/2023 Ancillary Procedure Radiology Rasta Kramer MD Cancer PhD 01/16/2023 Ancillary Procedure Radiology Rasta Kramer MD Cancer PhD 01/16/2023 Ancillary Procedure Radiology Rasta Kramer MD Cancer PhD 01/16/2023 Ancillary Procedure Radiology Rasta Kramer MD Cancer PhD 01/16/2023 Ancillary Procedure Radiology Rasta Kramer MD Cancer PhD 01/16/2023 Ancillary Procedure Radiology Rasta Kramer MD Cancer PhD 01/16/2023 POEM Appointments Anesthesiology Rasta Kramer MD Mass o f urinary PhD bladder 01/16/2023 Procedure visit Urology Rasta Kramer MD Mass of ur inary PhD bladder 01/16/2023 Office Visit Urology Rasta Kramer MD Mass of urina ry PhD bladder (Primar y Dx) 01/16/2023 NPR Patient Access Services 01/16/2023 Clinical Support Rasta Santiago MD Suspected COVID-19 (Primary Dx); PhD Mass of urinary bladder Xiomara Smith RN 01/16/2023 Travel 01/15/2023 Anesthesia Event Anesthesiology Randa Montes PA 01/13/2023 Telephone Geeta Templeton PA 01/13/2023 Telephone Genitourinary Oncology Pooja Valentin RN 01/12/2023 Emergency Emergency Medicine Jay Mathew Retention of urine (Primary Dx); MD Leon Mass of urinary bladder; Personal histor y of prostate cancer; Type 2 diabetes mellitus, not otherwise specified; Chronic kidney disease 01/12/2023 Travel 01/10/2023 Orders Only Urology Tommy, Mass of urinary Saba bladder (Primmitch y ISAAC Tolentino Dx) 01/10/2023 Orders Only Urology Tommy, Mass of urinary Saba bladder (Primar y ISAAC Tolentino Dx) 01/09/2023 Travel after 01/20/2022 Surgical History Surgery Date Site/Laterality Comments PROSTATE SURGERY 2006 Robotic Assiste d RP REPAIR OF INCARCERATED OR 10/30/2009 - Bilateral w/ mes h STRANGULATED INGUINAL HERNIA 10/29/2010 KNEE ARTHROSCOPY W/ Left No Hardware MENISCECTOMY Medical History Medical History Date Comments Mass of urinary bladder Malignant neoplasm of prostate Renal stone Hyperlipidemia 2009 Dependence on continuous positive airway pressure ventilatio n 2012 History of recurrent urinary tract infection 1983 Basal cell carcinoma of skin 2019 Diverticulitis of bladder 1989 Type 2 diabetes mellitus without complication Family History Medical History Relation Name Comments Prostate cancer Father Phil Rubio Relation Name Status Comments Father Phil Rubio Social History Tobacco Use Types Packs/Day Years Used Date Smoking Tobacco: Former Cigarettes 0.5 10 10/1977 - 12/29/1987 Smokeless Tobacco: Former Snuff Qu it: 10/30/2008 Tobacco Cessation: Counseling Given: Not Answered Alcohol Use Standard Drinks/Week Comments Not Currently 0 (1 standard drink = 0.6 oz pure alcoho l) Sex Assigned at Date Recorded Male 01/11/2023 6:25 PM CDT Job Start Date Occupation Industry Not on file Not on file Not on file COVID-19 Exposure Response Date Recorded In the last 10 days, have you been in contact with No / Unsu re 01/20/2023 10:32 AM CDT someone who was confirmed or suspected to have Coronavirus/COVID-19? Obstetrics History Last Filed Vital Signs Vital Sign Reading Time Taken Comments Blood Pressure 131/74 01/20/2023 11:52 AM CDT Pulse 87 01/20/2023 11:52 AM CDT Temperature 36.6 C (97.9 F) 01/16/2023 9:37 AM CDT Respiratory Rate 15 01/16/2023 9:37 AM CDT Oxygen Saturation 98% 01/20/2023 11:52 AM CDT Inhaled Oxygen Concentration - - Weight 88.7 kg (195 lb 8.8 oz) 01/16/2023 9:33 AM CDT Height 172.7 cm (5' 7.99") 01/16/2023 9:33 AM CDT Body Mass Index 29.74 01/16/2023 9:33 AM CDT Plan of Treatment Date Type Specialty Care Team Description 01/23/2023 Clinical Support Rasta Santiago MD PhD [address] [place] [id number] Hospital Ambulatory Surgery Rasta Kramer MD Encounter PhD [address] [place] [phone] Surgery Ambulatory Surgery Rasta Kramer MD CYSTOUR ETHROSCOPY WITH PhD FULGURATION AND [address] [place] [address] [address]UMOR (TURBT) [place] [address] Name Priority Associated Diagnoses Date/Time CYSTOURETHROSCOPY WITH Mass of urinary bladder 0 2023 5:00 PM CDT FULGURATION AND/OR TREATMENT OF MINOR LESION(S) (LESS THAN 0.5 CM) Health Maintenance Due Date Last Done Comments COVID-19 Vaccination (#1) 1960 Procedures Procedure Name Priority Date/Time Associated Comments Diagnosis CT CHEST ABDOMEN PELVIS Routine 01/20/2023 11:33 Mass of urina ry Results for this W WO CONTRAST UROGRAM AM CDT bladder proced ure are in the results section. COVID-19 (SARS-COV-2) Routine 01/16/2023 9:20 Suspected COVID- 19 Results for this PCR-ASYMPTOMATIC MC AM CDT procedur e are in the results section. URINALYSIS MICROSCOPIC Routine 01/12/2023 4:35 Re sults for this EXAM PM CDT procedure are i n the results section. URINALYSIS WITH Routine 01/12/2023 4:35 Results f or this MICROSCOPIC IF INDICATED PM CDT pro cedure are in the results section. URINE CULTURE Routine 01/12/2023 4:35 Results for this PM CDT procedure are i n the results section. FRACTIONATED BILIRUBIN Routine 01/12/2023 4:19 Re sults for this PM CDT procedure are i n the results section. TOTAL PROTEIN Routine 01/12/2023 4:19 Results for this PM CDT procedure are i n the results section. ASPARTATE Routine 01/12/2023 4:19 Results for this AMINOTRANSFERASE PM CDT procedure a re in the results section. ALANINE AMINOTRANSFERASE Routine 01/12/2023 4:19 Results for this PM CDT procedure are i n the results section. ALKALINE PHOSPHATASE Routine 01/12/2023 4:19 Resu lts for this PM CDT procedure are i n the results section. ALBUMIN LEVEL Routine 01/12/2023 4:19 Results for this PM CDT procedure are i n the results section. CALCIUM LEVEL TOTAL Routine 01/12/2023 4:19 Resul ts for this PM CDT procedure are i n the results section. .GLOMERULAR FILTRATION Routine 01/12/2023 4:19 Re sults for this RATE PM CDT procedure are i n the results section. SERUM CREATININE Routine 01/12/2023 4:19 Results for this PM CDT procedure are i n the results section. ELECTROLYTE PANEL Routine 01/12/2023 4:19 Results for this PM CDT procedure are i n the results section. BLOOD UREA NITROGEN Routine 01/12/2023 4:19 Resul ts for this PM CDT procedure are i n the results section. GLUCOSE LEVEL Routine 01/12/2023 4:19 Results for this PM CDT procedure are i n the results section. MANUAL DIFFERENTIAL STAT 01/12/2023 4:19 Resul ts for this PM CDT procedure are i n the results section. Results CBC STAT 01/12/2023 4:19 Results for this PM CDT procedure are i n the results section. APTT Routine 01/12/2023 4:19 Results for this PM CDT procedure are i n the results section. PROTHROMBIN TIME Routine 01/12/2023 4:19 Results for this PM CDT procedure are i n the results section. PHOSPHORUS LEVEL Routine 01/12/2023 4:19 Results for this PM CDT procedure are i n the results section. MAGNESIUM LEVEL Routine 01/12/2023 4:19 Results f or this PM CDT procedure are i n the results section. COMPREHENSIVE METABOLIC Routine 01/12/2023 4:19 PANEL PM CDT COMPLETE BLOOD COUNT W/ Routine 01/12/2023 4:19 DIFFERENTIAL PM CDT OSI CT ABDOMEN AND Routine 12/14/2022 11:44 Cancer Resul ts for this PELVIS PM PEEL OVEN TENDER procedure are i n the results section. after 01/20/[address] Chest Abdomen Pelvis with and without Contrast Urogram (01/20/2023 11:33 AM CDT) Anatomical Region Laterality Modality Chest, Abdomen, Pelvis Computed Tomograp hy Specimen (Source) Anatomical Collection Method Collection Time Re ceived Time Location / / Volume Laterality 01/20/2023 11:52 AM CDT Impressions 01/20/2023 12:01 PM CDT * There is an enlarging an enhancing mass noted in the neck of the urinary bladder, right lateral wall of the urinary bladder, compatible with the known bladder carcinoma. * Enlarging right pelvic sidewall lymp h nodes are noted which have significantly increased in size since November 2022. * Subcentimeter but stable common miguel c, retroperitoneal nodes are indeterminate. * No evidence of distant visceral meta stases. * No evidence of upper tract lesions. [This document was created using a voice recognition transcribing system. Incorrect words or phrases may have been missed during proof reading. Please interpret accordingly. Please contact me for clarifications if necessary] Narrative 01/20/2023 12:01 PM CDT FULL RESULT: Examination: CT CHEST ABDOMEN PELVIS W W O CONTRAST UROGRAM on 01/20/2023 11:33 AM Clinical History: Bladder carcinoma. Pre sents with gross hematuria Indication: Bladder Mass ; New patient Comparison: Noncontrast CT scan of the a bdomen and pelvis from 12/14/2022 performed at an outside facility Technique: Axial CT scan of the Thorax, Abdomen & pelvis was performed without and with IV contrast. The patient was prehydrated with 250 mL of normal saline and 10 mg of furosemide was also given to optimize distention of the upper tracts. Findings: Bladder: The patient appears to be statu s post radical prostatectomy for history of prostate carcinoma. There is an enhancing lesion noted in th e neck of the urinary bladder, best seen on image 179 of series 5 measuring at least 2.7 cm in transverse, 3.3 cm in AP dimension and extending to the urinary robert dder and the right lateral wall of the u rinary bladder (series 5 images 167- 173). This is compatible with the diagnosis of bladder carcinoma. A Palmer catheter is seen in situ. There are diverticula are again noted in the urinary bladder on image 159. There is diffuse low-grade enhancement of the bladder mucosa which is of doubtful clinical significance. Right kidney & upper tract: There is no evidence of hydroureteronephrosis. No evidence of upper tract lesions are seen. No enhancing or suspicious renal lesions are evident.There are a few scattered cysts noted in the right kidney. Left kidney & upper tract: There is no e vidence of hydroureteronephrosis. No evidence of upper tract lesions are seen. No enhancing or suspicious renal lesions are evident.Calyceal calculus in the u pper pole calyx on image 63 measures les s than 0.5 cm. A few scattered cysts are noted in the left kidney. Nodes: Metastatic right obturator node i s associated with significant surrounding inflammatory changes and measures approximately 3 cm x 3 cm on image 147, new to the current examination. A right aerospace products sales engineer ior internal iliac node measures 2.6 x 1 .8 cm. In retrospect, this was seen in the prior examination from November 2022 are new since May 2018. This node is metastatic in nature. Another node measuring 3.8 x 3.9 cm in t he internal iliac distribution on image 160 previously measured 1.3 cm in short axis dimension. Mildly prominent right common iliac node on image 126 measuring 0.9 cm in short axis dimension and left common iliac node on image 126 measuring 1.2 cm in short axis dimension are noted, stable in size. These are indeterminate. There is no evidence of retroperitoneal adenopathy. Other: Thorax: There is no evidence of abnormal ly enlarged mediastinal, hilar or axillary adenopathy. Moderate coronary artery calcification is noted. No evidence of pulmonary parenchymal metastases is seen. No pleural or pericardial effusions are noted. Abdomen and pelvis: There is no evidence of hepatic metastases. The gallbladder appears normal. There is no biliary dilatation. The adrenal glands, the pancreas and the spleen are unremarkable Procedure Note Wagner Jaeger MD - 01/20/2023Form atting of this note might be different from the original. FULL RESULT: Examination: CT CHEST ABDOMEN PELVIS W W O CONTRAST UROGRAM on 01/20/2023 11:33 AM Clinical History: Bladder carcinoma. Pre sents with gross hematuria Indication: Bladder Mass ; New patient Comparison: Noncontrast CT scan of the a bdomen and pelvis from 12/14/2022 performed at an outside facility Technique: Axial CT scan of the Thorax, Abdomen & pelvis was performed without and with IV contrast. The patient was prehydrated with 250 mL of normal saline and 10 mg of furosemide was also given to optimize distention of the upper tracts. Findings: Bladder: The patient appears to be statu s post radical prostatectomy for history of prostate carcinoma. There is an enhancing lesion noted in th e neck of the urinary bladder, best seen on image 179 of series 5 measuring at least 2.7 cm in transverse, 3.3 cm in AP dimension and extending to the urinary bladder and the right lateral wall of the urinar y bladder (series 5 images 167-173). This is compatible with the diagnosis of bladder carcinoma. A Palmer catheter is seen in situ. There are diverticula are again noted in the urinary bladder on image 159. There is diffuse low-grade enhancement of the bladder mucosa which is of doubtful clinical significance. Right kidney & upper tract: There is no evidence of hydroureteronephrosis. No evidence of upper tract lesions are seen. No enhancing or suspicious renal lesions are evident.There are a few scattered cysts noted in the right kidney. Left kidney & upper tract: There is no e vidence of hydroureteronephrosis. No evidence of upper tract lesions are seen. No enhancing or suspicious renal lesions are evident.Calyceal calculus in the upper pole calyx on image 63 measures less than 0.5 cm. A fe w scattered cysts are noted in the left kidney. Nodes: Metastatic right obturator node i s associated with significant surrounding inflammatory changes and measures approximately 3 cm x 3 cm on image 147, new to the current examination. A right posterior internal iliac node measures 2.6 x 1.8 cm. In ret rospect, this was seen in the prior examination from November 2022 are new since May 2018. This node is metastatic in nature. Another node measuring 3.8 x 3.9 cm in t he internal iliac distribution on image 160 previously measured 1.3 cm in short axis dimension. Mildly prominent right common iliac node on image 126 measuring 0.9 cm in short axis dimension and left common iliac node on image 126 measuring 1.2 cm in short axis dimension are noted, stable in size. These are indeterminate. There is no evidence of retroperitoneal adenopathy. Other: Thorax: There is no evidence of abnormal ly enlarged mediastinal, hilar or axillary adenopathy. Moderate coronary artery calcification is noted. No evidence of pulmonary parenchymal metastases is seen. No pleural or pericardial effusions are noted. Abdomen and pelvis: There is no evidence of hepatic metastases. The gallbladder appears normal. There is no biliary dilatation. The adrenal glands, the pancreas and the spleen are unremarkable IMPRESSION: * There is an enlarging an enhancing mas s noted in the neck of the urinary bladder, right lateral wall of the urinary bladder, compatible with the known bladder carcinoma. * Enlarging right pelvic sidewall lymph nodes are noted which have significantly increased in size since November 2022. * Subcentimeter but stable common iliac, retroperitoneal nodes are indeterminate. * No evidence of distant visceral metast ases. * No evidence of upper tract lesions. [This document was created using a voice recognition transcribing system. Incorrect words or phrases may have been missed during proof reading. Please interpret accordingly. Please contact me for clarifications if necessary] Saba GRAY IMG CT ORDERABLES COVID-19 (SARS-CoV-2) PCR-Asymptomatic (01/16/2023 9:20 AM CDT) [facility] Method Time Signature COVID19 (SARS Not Detected Not Detected [place] CoV-2) [facility] Comment: This test is a qualitative reverse-trans criptase polymerase chain reaction (RT- PCR) developed for the Charanjit NATACHA 6800 system and intended for qualitative detection of SARS CoV-2 RNA in nasopharyngeal a nd oropharyngeal swab specimens collecte d from any individuals, including those suspected o f COVID-19 by their healthcare provider, and those without symptoms or other reasons to suspect COVID-19. A fact sheet for patients provided by the plastic eye technician ( [employer]) can be rev iewed at: https://www.fda.gov/media/896227/jovan d. A fact sheet for Health Care providers is provided by the plastic eye technician ([employer]) and can be reviewed at: https://www.fda.gov/media/728555/download Results must be interpreted within the c ontext of all relevant clinical and laboratory findings and should not form the sole basis for a diagnosis or treatment decision. Positive results do not rule out bacterial infection or co- infection with other viruses. Negative results do not rule ou t SARS-CoV-2 and must be combined with clinical observations, patient history, and/or epidemiological information. "Presumptive Positive" results are due t o partial amplification of SARS-CoV-2 targets and indicates low amounts of virus present in the specimen at or near the limit of detection. Regardless, individuals with "Presumptive Positive" results should be managed per institutional guidelines as individuals positive for SARS-CoV-2 virus, including use of appropriate infection control protocols. Internal controls are included to assess for possible amplification inhibitors. If inhibition is detected, testing is repeated and if inhibition is confirmed the specimen is resulted as "Invalid". When an "Invalid" result occurs, it is recomm ended to wait 3 days before submitting a new spec imen for testing if clinically indicated. This assay has been approved by the FDA for use only under Emergency Use Authorization (EUA) in laboratories that have been CLIA-certified to perform moderate-complexity and high-complexity tests. The performance characteristics of this assay were verified by the Microbiology Laboratory at [facility], CLIA Accreditation #: [id number] and CAP Accreditation #: [id number]. COVID19 SARS Source AGRICULTURAL EQUIPMENT TEST ENGINEER Swab [place] MD [facility] COVID19 SARS Indication Pre-OR Procedure [facility] Specimen (Source) Anatomical Collection Method Collection Time Re ceived Time Location / / Volume Laterality Nasopharyngeal Swab 01/16/2023 9:20 01/16 AM CDT 10:09 AM CDT Rasta Kramer MD PhD MICROBIOLOGY - GENERAL ORDER SHANE Performing Organization Address City/State/ZIP Code Phon e Number [facility] Unless otherwise noted, [place] [address] [place] all lab tests performed by: Division of Pathology and Laboratory Medicine Lara5 Aida Glass (ABNORMAL) Urinalysis Microscopic Exam (01/12/2023 4:35 PM CDT) athologist Signature UA WBC >182 (H) 0 - 2 /HPF [facility] Comment: Some reporting parameters within the Uri nalysis test have changed due to the implementation of new instrumentation in the [facility], allowing greater sensitivity of measurement. Urinalysis results rep orted by the [facility] using existing instrumentation, as well as Urinalysis t esting performed manually or by backup methodology at the [facility] will remain relatively unchanged. New reporting parameters and units will not be reported for all campuses. UA RBC >182 (H) 0 - 2 /HPF [facility] LIZZY [facility] CENTER UA Mucous NOT SEEN Not Seen-Trace /HPF [place] [facility] UA Bacteria NOT SEEN NOT SEEN /HPF [facility] UA Squam Epi NOT SEEN None-Occasional /HPF [facility] UA WBC Clump OCC (A) NOT SEEN /HPF [place] [facility] Specimen Anatomical Collection Method Collection Time Receive d Time (Source) Location / / Volume Laterality Urine 01/12/2023 4:35 PM 3 4:39 CDT PM CDT Natalie Horne MD LAB BLOOD ORDERABLES Performing Organization Address City/State/ZIP Code Phon e Number [facility] Unless otherwise noted, [address] all lab tests performed by: Division of Pathology and Laboratory Medicine [address] [place] [address] [place] (ABNORMAL) Urinalysis w/Microscopic if Indicated (01/12/2023 4:35 PM CDT) [facility] gist Method Time Signature UA Color Yellow Straw-Yel [facility] UA Appear Cloudy (A) Clear [facility] UA Glucose NEG NEG mg/dL [facility] UA Bili NEG NEG [facility] UA Ketones NEG NEG mg/dL [facility] UA Spec Grav 1.018 1.003 - [facility] 1.035 [facility] UA Blood Large (A) NEG [facility] UA pH 6.0 5.0 - 9.[address] [facility] UA Protein 200 (A) NEG mg/dL [facility] UA Urobilinogen NEG NEG [facility] UA Nitrite NEG NEG [facility] UA Leuk Est Large (A) NEG [facility] Specimen Anatomical Collection Method Collection Time Receive d Time (Source) Location / / Volume Laterality Urine 01/12/2023 4:35 PM 3 4:39 CDT PM CDT Natalie Horne MD URINE ORDERABLES Performing Organization Address City/State/ZIP Code Phon e Number [facility] Unless otherwise noted, [address] all lab tests performed by: Division of Pathology and Laboratory Medicine [address] [place] [address] Urine Culture (01/12/2023 4:35 PM CDT) athologist [facility] Final Report No growth [facility] Specimen Anatomical Collection Method Collection Time Receive d Time (Source) Location / / Volume Laterality Urine 01/12/2023 4:35 PM 3 5:39 CDT PM CDT Natalie Horne MD MICROBIOLOGY - GENERAL ORDER SHANE Performing Organization Address City/[facility]/ZIP Code Phon e Number [facility] Unless otherwise noted, [address] all lab tests performed by: Division of Pathology and Laboratory Medicine [address] [place] [address] (ABNORMAL) .Serum Creatinine (01/12/2023 4:19 PM CDT) athologist [facility] Creatinine 1.38 (H) 0.67 - 1.17 [facility] mg/dL [facility] Specimen Anatomical Collection Method Collection Time Receive d Time (Source) Location / / Volume Laterality Blood 01/12/2023 4:19 PM 3 4:43 CDT PM CDT Natalie Horne MD LAB BLOOD ORDERABLES Performing Organization Address City/[facility]/ZIP Code Phon e Number [facility] CANCER Unless otherwise noted, [address] all lab tests performed by: Division of Pathology and Laboratory Medicine [address] [place] [address] (ABNORMAL) .CBC (01/12/2023 4:19 PM CDT) athologist [facility] WBC 15.4 (H) 4.0 - 11.0 [place] K/[facility] RBC 5.08 4.50 - [place] MD 6.00 M/[facility] Hgb 14.8 14.0 - [place] MD 18.0 gm/dL [facility] Hct 45.2 40.0 - [place] MD 54.0 % [facility] MCV 89 82 - [address] [facility] MCH 29.1 27.0 - [place] MD 31.0 pg [facility] MCHC 32.7 31.0 - [place] 36.0 gm/dL [facility] RDW-SD 42.6 35.1 - [place] 46.3 [facility] RDW-CV 13.1 12.0 - [place] 15.5 % [facility] Platelet count 441 (H) 140 - 440 [place] K/uL [facility] MPV 9.5 4.0 - 10.4 [place] [facility] INRBC 0.0 <=0.0 % [facility] Comment: The INRBC (instrument NRBC) value reflec ts the enumeration of nucleated red blood cells contained i n a 200uL sample of whole blood analyzed by the instrumen t. This value may differ from the NRBC value reported in a manual differential, which is based on a 100 cell differentia l. Specimen Anatomical Collection Method Collection Time Receive d Time (Source) Location / / Volume Laterality Blood 01/12/2023 4:19 PM 3 4:39 CDT PM CDT Natalie Horne MD LAB BLOOD ORDERABLES Performing Organization Address City/State/ZIP Code Phon e Number [facility] CANCER Unless otherwise noted, [place] [address] [place] all lab tests performed by: Division of Pathology and Laboratory Medicine [address] (ABNORMAL) Glomerular Filtration Rate (01/12/2023 4:19 PM CDT) P athologist Signature eGFR 58 (L) >=60 [facility] mL/min/1.73 [facility]ENTER sq. m Comment: The eGFRcr is calculated with the 2020 KD-EPI creatinine equation using creatinine, patient's age, and sex for adults 18 years of age and older. Other factors, especially muscle mass, may affect accuracy and need to be considered. According to the Kidney Disease: Improvi ng Global Outcomes (KDIGO) CKD Work Group 2012 Clinical Practice Guideline, chronic kidney disease (CKD) is defined as the abnormalities of kidney structure or function, present for more than 3 months, with implications for health. CKD should be c lassified by cause, GFR category, and albuminuria category. KDIGO guidelines provide the following GFR categories Stage Description GFR mL/min/1.73 m2 G1* Normal or high >= 90 G2* Mildly decreased 60-89 G3a Mildly to moderately decreased 45-59 G3b Moderately to severely decreased 30- 44 G4 Severely decreased 15-29 G5 Kidney failure <15 *In the absence of evidence of kidney da mage, neither G1 nor G2 fulfill criteria for CKD. Specimen Anatomical Collection Method Collection Time Receive d Time (Source) Location / / Volume Laterality Blood 01/12/2023 4:19 PM 3 4:43 CDT PM CDT Natalie Horne MD LAB BLOOD ORDERABLES Performing Organization Address City/[facility] Code Phon e Number [facility] CANCER Unless otherwise noted, [address] all lab tests performed by: Division of Pathology and Laboratory Medicine [facility] Fractionated Bilirubin (01/12/2023 4:19 PM CDT) athologist Signature Bili Total 0.3 <=1.2 mg/dL [facility] Comment: Indocyanine Green (ICG) may cause falsel y elevated bilirubin results. Total and direct bilirubin must not be measured from samples containing indocyanine green. False elevation of total bilirubin can b e seen in patients with IgG concentrations above 28 g/L. Bili Direct <0.2 <=0.3 mg/dL [facility] Comment: Indocyanine Green (ICG) may cau se falsely elevated bilirubin results. Total and direct bilirubin must not be measure d from samples containing indocyanine green. Bili Indirect See Note 0.0 - 0.9 mg/dL [place] MD [facility] Comment: Unable to calculate Indirect Bi lirubin result due to some parameters are outside reportable range Specimen Anatomical Collection Method Collection Time Receive d Time (Source) Location / / Volume Laterality Blood 01/12/2023 4:19 PM 3 4:43 CDT PM CDT Natalie Horne MD LAB BLOOD ORDERABLES Performing Organization Address City/[facility] Phon e Number [facility] Unless otherwise noted, [address] all lab tests performed by: Division of Pathology and Laboratory Medicine [address] aPTT (01/12/2023 4:19 PM CDT) athologist Signature aPTT 28.7 22.8 - 34.2 [place] MD [facility] second([facility] Specimen Anatomical Collection Method Collection Time Receive d Time (Source) Location / / Volume Laterality Blood 01/12/2023 4:19 PM 3 4:39 CDT PM CDT Natalie Horne MD LAB BLOOD ORDERABLES Performing Organization Address City/State/ZIP Code Phon e Number [facility] CANCER Unless otherwise noted, [place] [address] [place] all lab tests performed by: Division of Pathology and Laboratory Medicine [address] (ABNORMAL) Differential (01/12/2023 4:19 PM CDT) athologist Signature Neutrophil % 72.9 (H) 42.0 - [facility] 66.0 % [facility] Lymphocyte % 12.9 (L) 24.0 - [facility] 44.0 % [facility] Monocyte % 9.0 (H) 2.0 - 7.0 [facility] % [facility] Eosinophil % 4.2 (H) 1.0 - 4.0 [facility] % [facility] Basophil % 0.5 0.0 - 1.0 [facility] % [facility] IGRE % 0.5 (H) 0.0 - 0.4 [facility] % [facility] Comment: IGRE % count includes Metamyelo cytes, Myelocytes, and Promyelocytes. Neutrophil Abs 11.20 (H) 1.70 - 7.30 K/uL [facility] Lymphocyte Abs 1.98 1.00 - 4.80 K/uL [place] [facility] Monocyte Abs 1.39 (H) 0.08 - 0.70 K/uL [place] [facility] Eosinophil Abs 0.64 (H) 0.04 - 0.40 K/uL [facility] Basophil Abs 0.08 0.00 - 0.10 K/uL [place] [facility] IG Abs 0.08 (H) 0.00 - 0.04 K/uL [place] MD DUNG Lyn [facility] Specimen Anatomical Collection Method Collection Time Receive d Time (Source) Location / / Volume Laterality Blood 01/12/2023 4:19 PM 3 4:39 CDT PM CDT Natalie Horne MD LAB BLOOD ORDERABLES Performing Organization Address City/State/ZIP Code Phon e Number [facility] CANCER Unless otherwise noted, [address] all lab tests performed by: Division of Pathology and Laboratory Medicine [address] [place] [address] Prothrombin Time with INR (01/12/2023 4:19 PM CDT) P athologist Signature PT 13.8 11.9 - 14.1 [facility](s) [facility] INR 1.06 0.89 - 1.[address] [facility] Specimen Anatomical Collection Method Collection Time Receive d Time (Source) Location / / Volume Laterality Blood 01/12/2023 4:19 PM 3 4:39 CDT PM CDT Natalie Horne MD LAB BLOOD ORDERABLES Performing Organization Address City/[facility]/ZIP Code Phon e Number [facility] CANCER Unless otherwise noted, [address] all lab tests performed by: Division of Pathology and Laboratory Medicine [address] [place], [place] [address] BUN (01/12/2023 4:19 PM CDT) P athologist Signature BUN 22 6 - 23 [facility] mg/dL [facility] Specimen Anatomical Collection Method Collection Time Receive d Time (Source) Location / / Volume Laterality Blood 01/12/2023 4:19 PM 3 4:43 CDT PM CDT Natalie Horne MD LAB BLOOD ORDERABLES Performing Organization Address City/State/ZIP Code Phon e Number [facility] CANCER Unless otherwise noted, [address] all lab tests performed by: Division of Pathology and Laboratory Medicine [address] [place] [address] [place] ALT (01/12/2023 4:19 PM CDT) P athologist Signature ALT 13 <=41 U/L [facility] Specimen Anatomical Collection Method Collection Time Receive d Time (Source) Location / / Volume Laterality Blood 01/12/2023 4:19 PM 3 4:43 CDT PM CDT Natalie Horne MD LAB BLOOD ORDERABLES Performing Organization Address City/State/ZIP Code Phon e Number [facility] CANCER Unless otherwise noted, [address] all lab tests performed by: Division of Pathology and Laboratory Medicine [address] [place] [address] [place] Aspartate Aminotransferase (01/12/2023 4:19 PM CDT) athologist Signature AST 13 <=40 U/L [facility] Specimen Anatomical Collection Method Collection Time Receive d Time (Source) Location / / Volume Laterality Blood 01/12/2023 4:19 PM 3 4:43 CDT PM CDT Natalie Horne MD LAB BLOOD ORDERABLES Performing Organization Address City/[facility]/ZIP Code Phon e Number [facility] CANCER Unless otherwise noted, [address] all lab tests performed by: Division of Pathology and Laboratory Medicine [address] [place], [place] [address]d Total Protein (01/12/2023 4:19 PM CDT) athologist [facility] Total Protein 7.5 6.4 - 8.3 [facility] g/dL [facility] Specimen Anatomical Collection Method Collection Time Receive d Time (Source) Location / / Volume Laterality Blood 01/12/2023 4:19 PM 3 4:43 CDT PM CDT Natalie Horne MD LAB BLOOD ORDERABLES Performing Organization Address City/[facility]/ZIP Code Phon e Number [facility] Unless otherwise noted, [address] all lab tests performed by: Division of Pathology and Laboratory Medicine [address] [place], [place] [address]d Phosphorus Level (01/12/2023 4:19 PM CDT) athologist [facility] Phosphorus 3.3 2.5 - 4.5 [facility] mg/dL [facility] Specimen Anatomical Collection Method Collection Time Receive d Time (Source) Location / / Volume Laterality Blood 01/12/2023 4:19 PM 3 4:43 CDT PM CDT Natalie Horne MD LAB BLOOD ORDERABLES Performing Organization Address City/[facility]/ZIP Code Phon e Number [facility] CANCER Unless otherwise noted, [address] all lab tests performed by: Division of Pathology and Laboratory Medicine [address] [place] [address] [place] Alkaline Phosphatase (01/12/2023 4:19 PM CDT) P athologist Signature Alk Phos 55 40 - 129 [facility] U/L [facility] Specimen Anatomical Collection Method Collection Time Receive d Time (Source) Location / / Volume Laterality Blood 01/12/2023 4:19 PM 3 4:43 CDT PM CDT Natalie Horne MD LAB BLOOD ORDERABLES Performing Organization Address City/State/ZIP Code Phon e Number [facility] CANCER Unless otherwise noted, [address] all lab tests performed by: Division of Pathology and Laboratory Medicine [address] Magnesium Level (01/12/2023 4:19 PM CDT) athologist Signature Magnesium 2.2 1.6 - 2.6 [facility] mg/dL [facility] Specimen Anatomical Collection Method Collection Time Receive d Time (Source) Location / / Volume Laterality Blood 01/12/2023 4:19 PM 3 4:43 CDT PM CDT Natalie Horne MD LAB BLOOD ORDERABLES Performing Organization Address City/[facility] Code Phon e Number [facility] CANCER Unless otherwise noted, [address] all lab tests performed by: Division of Pathology and Laboratory Medicine [address] (ABNORMAL) Glucose Level (01/12/2023 4:19 PM CDT) athologist Signature Glucose Level 126 (H) 70 - 99 [facility] mg/dL [facility] Comment: Effective 05/25/16, the glucose reference intervals have been updated based on [place] [employer] guidelines (Standards of Medical Care in Diabetes 2016. Diabetes Care 2016; 39: S13-S22). Fasting blood glucose: Normal: 70-99 mg/dL Impaired fasting glucose (increased risk for diabetes or pre-diabetes): 100- 125 mg/dL Diabetes mellitus: >/=126 mg/dL Random blood glucose: Normal: 70-199 mg/dL Note: Random glucose >100 mg/dL is assoc iated with increased risk for diabetes Specimen Anatomical Collection Method Collection Time Receive d Time (Source) Location / / Volume Laterality Blood 01/12/2023 4:19 PM 3 4:43 CDT PM CDT Natalie Horne MD LAB BLOOD ORDERABLES Performing Organization Address City/State/ZIP Code Phon e Number [facility] CANCER Unless otherwise noted, [address] all lab tests performed by: Division of Pathology and Laboratory Medicine [address] (ABNORMAL) Calcium Level (01/12/2023 4:19 PM CDT) P athologist Signature Calcium Lvl 10.4 (H) 8.4 - 10.2 [facility] mg/dL [facility] Specimen Anatomical Collection Method Collection Time Receive d Time (Source) Location / / Volume Laterality Blood 01/12/2023 4:19 PM 3 4:43 CDT PM CDT Natalie Horne MD LAB BLOOD ORDERABLES Performing Organization Address City/[facility]/ZIP Code Phon e Number [facility] CANCER Unless otherwise noted, [address] all lab tests performed by: Division of Pathology and Laboratory Medicine [facility] [place] Albumin Level (01/12/2023 4:19 PM CDT) athologist Signature Albumin Lvl 4.1 3.5 - 5.2 [facility] gm/dL [facility] Specimen Anatomical Collection Method Collection Time Receive d Time (Source) Location / / Volume Laterality Blood 01/12/2023 4:19 PM 3 4:43 CDT PM CDT Natalie Horne MD LAB BLOOD ORDERABLES Performing Organization Address City/State/ZIP Code Phon e Number [facility] CANCER Unless otherwise noted, [address] all lab tests performed by: Division of Pathology and Laboratory Medicine [facility] [place] Electrolyte Panel (01/12/2023 4:19 PM CDT) P athologist Signature Sodium Lvl 143 136 - 145 [facility] mEq/L [facility] Potassium Lvl 3.9 3.5 - 5.1 [facility] mEq/L [facility] Chloride 105 98 - 107 [facility] mEq/L [facility] CO2 28 22 - 29 [facility] mEq/L [facility] Anion Gap 10 4 - 14 [facility] mEq/L [facility] Specimen Anatomical Collection Method Collection Time Receive d Time (Source) Location / / Volume Laterality Blood 01/12/2023 4:19 PM 3 4:43 CDT PM CDT Natalie Horne MD LAB BLOOD ORDERABLES Performing Organization Address City/State/ZIP Code Phon e Number [facility] CANCER Unless otherwise noted, [place] [address] CENTER all lab tests performed by: Division of Pathology and Laboratory Medicine [address] [place] [address] Abdomen and Pelvis (12/14/2022 11:44 PM [employer]) Specimen (Source) Anatomical Location Collection Method / Collectio n Time Received Time / Laterality Volume Narrative Systemgenerated, Documentation - 023 11:44 PM CDT Study acquired at another institution. For comparison only. No MD Tristan originated interpretation requested or a vailable. Rasta Kramer MD PhD IMG OUTSIDE IMAGE ORDERABLES after 01/20/2022 Insurance Payer Benefit Plan / Subscriber ID Effective Dates Phone Addre ss Type Group [employer] MANAGED [employer] O [id number] 2021-Present [id number] [place] [address] Care Teams Religious Ritual Slaughterer Relationship Specialty Start Date End Date Ryan Cox MD PCP - External Referring Urology 01/03/23 [address] [facility] [address] [place] [address] Rasta Kramer MD PhD PCP - General Urology 01/06/23 [address] [place] [address]
--- OUTSIDE RECORDS SUMMARY | 2023-01-20 17:22 | XMS REPORT | Continuity of Care Document ---
:1960 Author Organization [facility] t Address [address] [place] [address] Care Team Providers Name Role Phone [phone] Primary Care Physician Unavailable RASTA POP Attending Clinician Unavailable SYSTEM, PROVIDER NOT IN Attending Clinician Unavailable Josefina Ramirez Attending Clinician [phone] JOSEFINA CALL Attending Clinician Unavailable Donn WELDON PhD, Rasta Attending Clinician Luis LUZ, Xiomara Aguilar Attending Clinician Randa Gonzalez Attending Clinician Yokasta GRAY, Geeta Bull Attending Clinician Barbie LUZ, January Attending Clinician Unavailable Jay Mathew MD Attending Clinician JAY MATHEW Attending Clinician Unavailable RASTA POP Admitting Clinician Unavailable Payers Payer Name Policy Type Policy Number Effective Date Expiration Date [place] amin [place] [facility] [id number] 2021 00:00:00 Problems Condition Condition Condition Status Onset Resolution Last Treating Co mments Source Name Details Category Date Date Treatment Clinician Date 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 00:00: [place] without without 00 MD chen [facility] Mass of Mass of Disease Active Univers urinary urinary 3-14 ity of bladder bladder 00:00: [place] 00 [facility] Malignant Malignant Disease Active Uni vers neoplasm neoplasm 3-14 ity of of of 00:00: [place] prostate prostate 00 MD Shira salazar [facility] Renal Renal Disease Active Univers stone stone 3-14 ity of 00:00: [place] 00 MD Shira salazar [facility] Diverticul Diverticul Disease Active U nivers itis of itis of 10-30 ity of bladder bladder 00:00: [place] 00 MD Shira salazar [facility] Allergies, Adverse Reactions, Alerts Allergy Allergy Status Severity Reaction(s) Onset Inactive Treating Comm ents Source Name Type Date Date Clinician Penicill Propensi Active Univer s ins ty to 3-16 ity of adverse 00:00: [place] reaction 00 MD orville salazar [facility] PENICILL Drug Active 0 MD INS Class 3-16 Anderso 00:00: n 00 PENICILL Drug Active 2022-0 MD INS Class 3-16 Anderso 00:00: n 00 PENICILL Drug Active 2022-0 MD INS Class 3-16 Anderso 00:00: n 00 PENICILL Drug Active 2022-0 MD INS Class 3-16 Anderso 00:00: n 00 PENICILL Drug Active 3-0 MD INS Class 3-16 Anderso 00:00: n 00 PENICILL Drug Active 3-0 MD INS Class 3-16 Anderso 00:00: n 00 PENICILL Drug Active 3-0 MD INS Class 3-16 Anderso 00:00: n 00 PENICILL Drug Active 3-0 MD INS Class 3-16 Anderso 00:00: n 00 PENICILL Drug Active 3-0 MD INS Class 3-16 Anderso 00:00: n 00 PENICILL Drug Active 2022-0 MD INS Class 3-16 Anderso 00:00: n 00 PENICILL Drug Active 3-0 MD INS Class 3-16 Anderso 00:00: n 00 PENICILL Drug Active 3-0 MD INS Class 3-16 Anderso 00:00: n 00 PENICILL Drug Active 3-0 MD INS Class 3-16 Anderso 00:00: n 00 PENICILL Drug Active 3-0 MD INS Class 3-16 Anderso 00:00: n 00 PENICILL Drug Active 3-0 MD INS Class 3-16 Anderso 00:00: n 00 PENICILL Drug Active 3-0 MD INS Class 3-16 Anderso 00:00: n 00 PENICILL Drug Active 2023-0 MD INS Class 3-16 Anderso 00:00: n 00 PENICILL Drug Active 2023-0 MD INS Class 3-16 Anderso 00:00: n 00 PENICILL Drug Active 2023-0 MD INS Class 3-16 Anderso 00:00: n 00 PENICILL Drug Active 2023-0 MD INS Class 3-16 Anderso 00:00: n 00 PENICILL Drug Active 2023-0 MD INS Class 3-16 Anderso 00:00: n 00 PENICILL Drug Active 2023-0 MD INS Class 3-16 Anderso 00:00: n 00 PENICILL Drug Active 2023-0 MD INS Class 3-16 Anderso 00:00: n 00 PENICILL Drug Active 2023-0 MD INS Class 3-16 Anderso 00:00: n 00 PENICILL Drug Active 2023-0 MD INS Class 3-16 Anderso 00:00: n 00 PENICILL Drug Active 2023-0 MD INS Class 3-16 Anderso 00:00: n 00 PENICILL Drug Active 2023-0 MD INS Class 3-16 Anderso 00:00: n 00 PENICILL Drug Active 2023-0 MD INS Class 3-16 Anderso 00:00: n 00 PENICILL Drug Active 2023-0 MD INS Class 3-16 Anderso 00:00: n 00 PENICILL Drug Active 2023-0 MD INS Class 3-16 Anderso 00:00: n 00 PENICILL Drug Active 2023-0 MD INS Class 3-16 Anderso 00:00: n 00 PENICILL Drug Active 2023-0 MD INS Class 3-16 Anderso 00:00: n 00 PENICILL Drug Active 2023-0 MD INS Class 3-16 Anderso 00:00: n 00 PENICILL Drug Active 2023-0 MD INS Class 3-16 Anderso 00:00: n 00 PENICILL Drug Active 2023-0 MD INS Class 3-16 Anderso 00:00: n 00 PENICILL Drug Active 2023-0 MD INS Class 3-16 Anderso 00:00: n 00 PENICILL Drug Active 2023-0 MD INS Class 3-16 Anderso 00:00: n 00 PENICILL Drug Active 2023-0 MD INS Class 3-16 Anderso 00:00: n 00 PENICILL Drug Active 2023-0 MD INS Class 3-16 Anderso 00:00: n 00 PENICILL Drug Active 2023-0 MD INS Class 3-16 Anderso 00:00: n 00 PENICILL Drug Active 2023-0 MD INS Class 3-16 Anderso 00:00: n 00 PENICILL Drug Active 2023-0 MD INS Class 3-16 Anderso 00:00: n 00 PENICILL Drug Active 2023-0 MD INS Class 3-16 Anderso 00:00: n 00 PENICILL Drug Active 2023-0 MD INS Class 3-16 Anderso 00:00: n 00 PENICILL Drug Active 2023-0 MD INS Class 3-16 Anderso 00:00: n 00 PENICILL Drug Active 2023-0 MD INS Class 3-16 Anderso 00:00: n 00 PENICILL Drug Active 2023-0 MD INS Class 3-16 Anderso 00:00: n 00 PENICILL Drug Active 2023-0 MD INS Class 3-16 Anderso 00:00: n 00 Codeine Propensi Active Other (See 2015-10 Other Uni vers ty to Comments) 2 reaction( ity of adverse 00:00: s): [place] reaction 00 OtherSduke WELDON s ting [facility] CODEINE DRUG Active Other 2015-10 MD INGREDI 2-03 Anderso 00:00: n 00 CODEINE DRUG Active Other 2015-10 MD INGREDI 2-03 Anderso 00:00: n 00 CODEINE DRUG Active Other 2015-10 MD INGREDI 2-03 Anderso 00:00: n 00 CODEINE DRUG Active Other 2015-10 MD INGREDI 2-03 Anderso 00:00: n 00 CODEINE DRUG Active Other 2015-10 MD INGREDI 2-03 Anderso 00:00: n 00 CODEINE DRUG Active Other 2015-10 MD INGREDI 2-03 Anderso 00:00: n 00 CODEINE DRUG Active Other 2015-10 MD INGREDI 2-03 Anderso 00:00: n 00 CODEINE DRUG Active Other 2015-10 MD INGREDI 2-03 Anderso 00:00: n 00 CODEINE DRUG Active Other 2015-10 MD INGREDI 2-03 Anderso 00:00: n 00 CODEINE DRUG Active Other 2015-10 MD INGREDI 2-03 Anderso 00:00: n 00 CODEINE DRUG Active Other 2015-10 MD INGREDI 2-03 Anderso 00:00: n 00 CODEINE DRUG Active Other 2015-10 MD INGREDI 2- Anderso 00:00: n 00 CODEINE DRUG Active Other 2015-10 MD INGREDI 2- Anderso 00:00: n 00 CODEINE DRUG Active Other 2015-10 MD INGREDI 2- Anderso 00:00: n 00 CODEINE DRUG Active Other 2015-10 MD INGREDI 2- Anderso 00:00: n 00 CODEINE DRUG Active Other 2015-10 MD INGREDI 2- Anderso 00:00: n 00 CODEINE DRUG Active Other 2015-10 MD INGREDI 2- Anderso 00:00: n 00 CODEINE DRUG Active Other 2015-10 INGREDI 2- Anderso 00:00: n 00 CODEINE DRUG Active Other 2015-10 MD INGREDI 2- Anderso 00:00: n 00 CODEINE DRUG Active Other 2015-10 INGREDI 2- Anderso 00:00: n 00 CODEINE DRUG Active Other 2015-10 INGREDI 2 Anderso 00:00: n 00 CODEINE DRUG Active Other 2015-10 INGREDI 2- Anderso 00:00: n 00 CODEINE DRUG Active Other 2015-10 MD INGREDI 2- Anderso 00:00: n 00 CODEINE DRUG Active Other 2015-10 MD INGREDI 2- Anderso 00:00: n 00 Family History Family Member Diagnosis Comments Start Date Stop Date Source Natural father Prostate cancer Unive rsity of [facility] Social History Social Habit Start Date Stop Date Quantity Comments Source Exposure to 2023-01-10 2023-01-20 Not sure University of SARS-CoV-2 (event) 00:00:00 10:32:00 [facility] [place] Cigarettes smoked 2023-01-16 2023-01-16 Univers ity of current (pack per 00:00:00 00:00:00 [place] Shaji Rivas ) - Reported Cancer Ce nter Cigarette 2023-01-16 2023-01-16 University of pack-years 00:00:00 00:00:00 Alma Patel [facility] Tobacco use and 2023-01-16 2023-01-16 Former smokeless Uni versity of exposure 00:00:00 00:00:00 tobacco user [facility] Alcohol intake 2023-01-16 2023-01-16 Ex-drinker University 00:00:00 00:00:00 (finding) Alma rizvi [facility] History of tobacco 2008-10-30 Snuff User Univer sity of use 00:00:00 Alma rizvi [facility] Sex [birth year] M Universit y of 00:00:00 00:00:00 Alma rizvi [facility] Smoking Status Start Date Stop Date Source Ex-smoker 2023-01-16 00:00:00 2023-01-16 00:00:00 [facility] [place] [facility] [place] Medications Ordered Filled Start Stop Current Ordering Indication Dosage Frequency Signature Comments Components Source Medication Medication Date Date Medication? Clinician (SIG) Name Name multivitami Yes Take by Uni vers n tab 3-20 mouth. ity of tablet 10:07: [place] 22 MD Shira salazar [facility] levoFLOXaci Yes levofloxac Univers n 3-20 in 500 mg ity of (LEVAQUIN) 10:07: tablet [place] 500 mg 07 TAKE 1 MD tablet TABLET Anderso EVERY 24 n HOURS BY Cancer ORAL ROUTE Center DIRECTED FOR 10 DAYS. aspirin 81 Yes 81mg Take 1 Unive rs mg EC 3-20 tablet (81 ity of tablet 10:07: mg) by [place] 07 mouth. MD Shira [facility] hyoscyamine Yes Mass of .125mg Place 1 Univers (Levsin/SL) 3-20 urinary tablet ity of 0.125 mg SL 00:00: bladder (0.125 mg) [place] tablet 00 under the tongue Shira every 6 n (six) Cancer hours as Center needed for cramping. levoFLOXaci Yes Mass of 500mg Take 1 Univers n 3-20 urinary tablet ity of (LEVAQUIN) 00:00: bladder (500 mg) [place] 500 mg 00 by mouth tablet daily. Anderso Begin n taking one Cancer day prior Center to scheduled procedure fenofibrate Yes fenofibrat Univers nanocrystal 8- e ity of lized 00:00: nanocrysta [place] (TRICOR) 00 llized 145 MD 145 mg mg tablet Anderso tablet TAKE 1 n TABLET BY Cancer MOUTH 1 Center TIME EACH DAY. simvastatin Yes simvastati Univers (ZOCOR) 40 8-01 n 40 mg ity of mg tablet 00:00: tablet [place] 00 TAKE 1 MD TABLET BY Anderso MOUTH n EVERY Cancer NIGHT Center metFORMIN Yes metformin Uni vers (GLUCOPHAGE 4-27 ER 500 mg ity of -XR) 500 mg 00:00: tablet,ext [place] 24 hr 00 ended MD tablet release 24 Anderso hr TAKE 2 n TABLETS BY Cancer MOUTH IN Center THE MORNING AND 2 TABLETS IN THE EVENING. Vital Signs Vital Name Observation Time Observation Value Comments Source Systolic blood 2023-01-20 16:52:00 131 mm[Hg] Univer [facility] of pressure Alma Crouch on [facility] Diastolic blood 2023-01-20 16:52:00 74 mm[Hg] [facility] MD Crouch on [facility] Heart rate 2023-01-20 16:52:00 87 /min [facility] MD Crouch [facility] Oxygen saturation in 2023-01-20 16:52:00 98 /min [facility] Arterial blood by [place] MD Jeff jenkins Pulse oximetry [facility] Body temperature 2023-01-16 14:37:31 36.61 Veren[facility] MD Crouch on [facility] Respiratory rate 2023-01-16 14:37:31 15 /min [facility] MD Crouch on [facility] Body height 2023-01-16 14:33:00 172.7 cm [facility] MD Crouch on [facility] Body weight 2023-01-16 14:33:00 88.7 kg [facility] MD Crouch on [facility] BMI 2023-01-16 14:33:00 29.74 kg/m2 [facility] MD Crouch [facility] Procedures Procedure Date / Time Performing Clinician Source Performed CT CHEST ABDOMEN PELVIS W 2023-01-20 16:33:36 Josefina Call [facility] WO CONTRAST UROGRAM Randa [facility] COVID-19 (SARS-COV-2) 2023-01-16 14:20:00 Rasta Pop [facility] PCR-ASYMPTOMATIC [facility] URINALYSIS WITH 2023-01-12 21:35:00 Natalie Horne [facility] MICROSCOPIC IF INDICATED MD [facility] URINALYSIS MICROSCOPIC 2023-01-12 21:35:00 [facility] URINE CULTURE 2023-01-12 21:35:00 Natalie Horne [facility] FRACTIONATED BILIRUBIN 2023-01-12 21:19:00 [facility] W/ 2023-01-12 21:19:00 Natalie Horne U [facility] DIFFERENTIAL [facility] COMPREHENSIVE METABOLIC 2023-01-12 21:19:00 Natalie Horne U [facility] PANEL [facility] MAGNESIUM LEVEL 2023-01-12 21:19:00 Natalie Horne [facility] PHOSPHORUS LEVEL 2023-01-12 21:19:00 [facility] PROTHROMBIN TIME 2023-01-12 21:19:00 [facility] APTT 2023-01-12 21:19:00 Natalie Horne [facility] Results CBC 2023-01-12 21:19:00 Natalie Horne [facility] MANUAL DIFFERENTIAL 2023-01-12 21:19:00 Natalie Horne [facility] GLUCOSE LEVEL 2023-01-12 21:19:00 Natalie Horne [facility] BLOOD UREA NITROGEN 2023-01-12 21:19:00 Natalie Horne [facility] ELECTROLYTE PANEL 2023-01-12 21:19:00 Natalie Horne [facility] SERUM CREATININE 2023-01-12 21:19:00 [facility] .GLOMERULAR FILTRATION 2023-01-12 21:19:[address] [facility] CALCI[facility] TOTAL 2023-01-12 21:19:00 [facility] ALBUMIN LEVEL 2023-01-12 21:19:00 Natalie Horne [facility] ALKALINE PHOSPHATASE 2023-01-12 21:19:00 Natalie Horne [facility] ALANINE AMINOTRANSFERASE 2023-01-12 21:19:00 Natalie Horne [facility] ASPARTATE AMINOTRANSFERASE 2023-01-12 21:19:00 Natalie Horne [facility] TOTAL PROTEIN 2023-01-12 21:19:00 Natalie Horne [facility] OSI CT ABDOMEN AND PELVIS 2022-12-15 05:44:00 Rasta [facility] Planned Activity Planned Date Details Comments Source Future Scheduled 2023-01-20 COVID-19 Vaccination (#1) [facility] 12:21:23 [code = COVID-19 [place] MD Jordan yovannybelkys Vaccination (#1)] Cancer [address] ter Future Appointment 2023 Rasta Pop MD PhD, 1515 University of 17:00:00 [facility] [address] [facility] Center Future Appointment 2023 Rasta Pop MD PhD, [address] [place] of 17:00:00 [facility] [address] Cancer Center Procedure 2023 CYSTOURETHROSCOPY WITH Unive rsity of 22:00:00 FULGURATION AND/OR [facility] TREATMENT OF MINOR Cancer Ce nter LESION(S) (LESS THAN 0.5 CM) Encounters Start End Encounter Admission Attending Care Care Encounter Source Date/Time Date/Time Type Type Clinicians Facility Department ID 2023-01-10 Outpatient RASTA POP [facility] Urology [id number] 14:43:34 Shira salazar 2023-01-03 Outpatient [facility] FELIPE [id number] 12:39:02 PROVIDER Miko salazar 2023-01-20 2023-01-20 Ancillary Ángela Call2.840.1 [id number] Univers 12:20:00 15:10:00 Procedure Josefina 23818.1.1 it y of Randa 3.412.2.7 [place] .3.233681 MD Fay [facility] 2023-01-20 2023-01-20 [facility] [id number] 10:32:58 10:32:58 JOSEFINA salazar 2023-01-20 2023-01-20 Travel 1.2.840.1 [id number] [id number] Univers 00:00:00 00:00:00 82167.1.1 350.1.13.41 ity of 3.412.2.7 2.[place].7.3.698 [place] .3.440106 084.8 MD Fay [facility] 2023-01-16 2023-01-17 Ancillary Rasta Pop 1.2.840.1 [id number] Univers 23:55:00 00:00:00 Procedure 26030.1.1 it y of 3.412.2.7 [place] .3.293698 [facility] 2023-01-16 2023-01-16 Ancillary Rasta Pop 1.2.840.1 [id number] Univers 23:50:00 23:55:00 Procedure 76085.1.1 it y of 3.412.2.7 [place] .3.322887 MD Sneed8 [facility] 2023-01-16 2023-01-16 Ancillary Rasta Pop 1.2.840.1 [id number] Univers 23:45:00 23:50:00 Procedure 94704.1.1 it y of 3.412.2.7 [place] .3.532606 MD Sneed8 [facility] 2023-01-16 2023-01-16 Ancillary Rasta Pop 1.2.840.1 [id number] Univers 23:40:00 23:45:00 Procedure 35183.1.1 it y of 3.412.2.7 [place] .3.208706 MD Fay [facility] 2023-01-16 2023-01-16 Ancillary Rasta Pop 1.2.840.1 [id number] Univers 23:35:00 23:40:00 Procedure 94421.1.1 it y of 3.412.2.7 [place] .3.518652 MD Sneed8 [facility] 2023-01-16 2023-01-16 Rasta Palafox 1.2.840.1 [id number] Univers 23:30:00 23:35:00 Procedure 15238.1.1 it y of 3.412.2.7 [place] .3.244000 MD Sneed8 [facility] 2023-01-16 2023-01-16 Ancillary Rasta Pop 1.2.840.1 [id number] Univers 23:25:00 23:30:00 Procedure 29798.1.1 it y of 3.412.2.7 [place] .3.451394 MD Sneed8 [facility] 2023-01-16 2023-01-16 Ancillary Rasta Pop 1.2.840.1 [id number] Univers 23:20:00 23:25:00 Procedure 87957.1.1 it y of 3.412.2.7 [place] .3.971914 MD Sneed8 [facility] 2023-01-16 2023-01-16 Ancillary Rasta Pop 1.2.840.1 [id number] Univers 23:15:00 23:20:00 Procedure 39998.1.1 it y of 3.412.2.7 [place] .3.954086 MD Sneed8 [facility] 2023-01-16 2023-01-16 Outpatient RASTA [facility] [id number] ID 23:16:45 23:16:45 Miko o n 2023-01-16 2023-01-16 Outpatient DONN, RASTA MDA MDA [id number] MD 23:16:29 23:16:29 Miko o n 2023-01-16 2023-01-16 Outpatient EL DONN, RASTA MDA MDA [id number] MD 23:16:21 23:16:21 Miko o n 2023-01-16 2023-01-16 Outpatient DONN, RASTA MDA MDA [id number] MD 23:14:57 23:14:57 Miko o n 2023-01-16 2023-01-16 Outpatient DONN, RASTA MDA MDA [id number] MD 23:14:52 23:14:52 Miko o n 2023-01-16 2023-01-16 Outpatient DONN, RASTA MDA MDA [id number] MD 23:14:46 23:14:46 Miko o n 2023-01-16 2023-01-16 Outpatient DONN, RASTA MDA MDA [id number] MD 23:14:40 23:14:40 Miko o n 2023-01-16 2023-01-16 Outpatient DONN, RASTA MDA MDA [id number] MD 23:14:35 23:14:35 Miko o n 2023-01-16 2023-01-16 Outpatient [facility], RASTA MDA MDA [id number] MD 23:14:24 23:14:24 Miko o n 2023-01-16 2023-01-16 POEM Rasta Pop 1.2.840.1 [id number] [facility] 15:00:00 15:30:00 Appointmen 79925.1.1 i ty of ts 3.412.2.7 [place] .3.099696 MD Sneed8 Shira salazar [facility] 2023-01-16 2023-01-16 Procedure Rasta Pop 1.2.840.1 [id number] Univers 12:30:00 14:00:00 visit 83911.1.1 ity of 3.412.2.7 [place] .3.158729 MD Sneed8 Shira salazar [facility] 2023-01-16 2023-01-16 Office Rasta Pop 1.2.840.1 [id number] [facility] 10:00:00 11:52:17 Visit 75837.1.1 ity of 3.412.2.7 [place] .3.812942 MD Sneed8 [facility] 2023-01-16 2023-01-16 Outpatient DAIANA POP RASTA FELIPE MDA [id number] 09:23:42 11:52:17 Mikojuan manuel salazar 2023-01-16 2023-01-16 Outpatient DAIANA POP RASTA WANG MDA [id number] 10:48:32 10:48:32 Mikojuan manuel salazar 2023-01-16 2023-01-16 Outpatient DAIANA POP RASTA WANG MDA [id number] 09:13:28 09:22:06 Mikojuan manuel salazar 2023-01-16 2023-01-16 [facility] Rasta Pop 1.2.840.4 [id number] [facility] 08:45:00 09:22:06 Support Xiomara Smith 66147.1.1 ity of 3.412.2.7 [place] .3.221403 .8 [facility] 2023-01-16 2023-01-16 Outpatient FELIPE MDA [id number] 09:09:46 09:09:56 Miko [facility] 2023-01-16 2023-01-16 NPR 1.2.840.1 [id number] [facility] 09:00:00 09:09:56 11838.1.1 ity of 3.412.2.7 [place] .3.450233 .8 [facility] 2023-01-16 2023-01-16 Outpatient DAIANA POP RASTA MDA MDA [id number] 07:47:59 07:47:59 Mikojuan manuel salazar 2023-01-16 2023-01-16 Travel 1.2.840.1 [id number] [id number] Univers 00:00:00 00:00:00 61184.1.1 350.1.13.41 ity of 3.412.2.7 2.2.7.3.698 [place] .3.364786 084.8 MD Fay [facility] 2023-01-15 2023-01-15 Anesthesia Rostant, 1.2.840.1 [id number] Univers 23:59:59 23:59:59 Event Randa 51339.1.1 ity of 3.412.2.7 [place] .3.757396 MD Sneed8 [facility] 2023-01-13 2023-01-13 Telephone Yokasta, 1.2.840.1 [id number] Univers 00:00:00 00:00:00 Geeta Bull 75243.1.1 ity of 3.412.2.7 [place] .3.671062 MD Sneed8 [facility] 2023-01-13 2023-01-13 Telephone Barbie, 1.2.840.1 [id number] Univers 00:00:00 00:00:00 January 81167.1.1 ity of 3.412.2.7 [place] .3.970057 MD Fay [facility] 2023-01-12 2023-01-12 Emergency Jay Mathew 1.2.840.1 [id number] Univers 16:06:00 18:07:00 Leon 36925.1.1 ity of 3.412.2.7 [place] .3.438582 MD Fay [facility] 2023-01-12 2023-01-12 Emergency UR JAY MATHEW MDA Emergency 11 [id number] MD 16:06:00 18:07:00 [facility] 2023-01-12 2023-01-12 Travel 1.2.840.1 [id number] [id number] Univers 00:00:00 00:00:00 57031.1.1 350.1.13.41 ity of 3.412.2.7 2.2.7.3.698 [place] .3.602603 084.8 MD Sneed8 [facility] 2023-01-10 2023-01-10 Orders Oneyda, 1.2.840.1 [id number] Univers 00:00:00 00:00:00 Only Josefina 11039.1.1 ity of [place]anda 3.412.2.7 [place] .3.321602 MD Fay [facility] 2023-01-10 2023-01-10 Orders Oneyda, 1.2.840.1 [id number] Univers 00:00:00 00:00:00 Only Josefina 25801.1.1 ity of [place]anda 3.412.2.7 [place] .3.669123 MD Fay [facility] 2023-01-09 2023-01-09 Travel 1.2.840.1 1.2.582.097 [id number] Univers 00:00:00 00:00:00 31165.1.1 350.1.13.41 ity of 3.412.2.7 2.2.7.3.698 [place] .3.339801 084.8 MD Fay [facility] Results Test Description Test Time Test Comments Results Result Comments Source COVID-19 (SARS-CoV-2) PCR-Asymptomatic 2023-01-16 22:02:1 5 Test Item Value Reference Range Interpretation Comme nts COVID19 Not Not This (SARS CoV-2) Detected Detected test is a quali tative reverse-transcriptase Result (test polymerase vida n reaction (RT-PCR) developed for code = the [employer] (air taxi) NATACHA Azubu0 system and intended for 55007-3) qualitative det ection of SARS CoV-2 RNA in nasopharyngeal and oropharyngeal swab specimens collected from any individuals, including those suspected of CO VID-19 by their healthcare provider, and those witho ut symptoms or other reasons to suspect COVID-1 9. A fact sheet for patients provided by the transit bus operator ([employer]) c an be reviewed at:https://www. fda.gov/media/881814/download. A fact sheet for Health Care providers is provided by the manufacture r ([employer]) and can be reviewed at: https://www.fda .gov/media/895774/download Results must be interpr eted within the context of all relevant clinic al and laboratory findings and should not form the sole basis for a diagnosis or treatment decis ion. Positive results do not rule out bacterial i nfection or co-infection with other viruses. Negati ve results do not rule out SARS-CoV-2 and must be combined with clinical observations, p atient history, and/or epidemiological information. "Presumptive Positive" results are due to partial amplification of SARS-CoV-2 targ ets and indicates low amounts of virus present i n the specimen at or near the limit of detection. R egardless, individuals with "Presumptive Po sitive" results should be managed per institution al guidelines as individuals positive for SA RS-CoV-2 virus, including use of appropriate inf ection control protocols. Internal controls are in cluded to assess for possible amplification i nhibitors. If inhibition is detected, testi ng is repeated and if inhibition is confirmed the s pecimen is resulted as "Invalid". When an "Invali d" result occurs, it is recommended to wait 3 days before submitting a new specimen for testing if clin ically indicated. This assay has been approved b y the FDA for use only under Emergency Use A uthorization (EUA) in laboratories that have been CLIA-certified to perform moderate-comple xity and high-complexity tests. The performance phong racteristics of this assay were verified by the Microbiology Laboratory at [facility], CLIA Accreditation #: [id number] and CAP Accreditation #: [id number]. 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 Swab Source (test code = 87099) COVID19 SARS Pre-OR Indication Procedure (test code = 18654) [facility] [id number] 17:24:49 Test Item Value Reference Range Interpretation Comments Final Report (test code = 8488) No growth [facility] CenterUrinalysis Microscopic Exam 2023-01-12 23:21:41 Test Item Value Reference Range Interpretation Comments UA WBC (test code = See_Comment H Some rep orting 52188-1) parameters with in the Urinalysis test have changed due to the implementation of new instrumentation in the [facility] [place], al lowing greater sensiti vity of measurement. Urinalysis resu lts reported by the [facility] using existing instrumentation , as well as Urinaly sis testing perform ed manually or by backup methodology at the [facility] [place] [facility] l remain relative ly unchanged. New reporting nico eters and units will not be reported for nj l campuses. [Auto mated message] The sy stem which generated this result transmit oksana reference range : 0 - 2 /HPF. The refer ence range was not u sed to interpret this result as normal/abnor mal. UA RBC (test code = See_Comment H [Automa oksana message] 85408-1) The system [employer] generated this result transmitted ref erence range: 0 - 2 /H PF. The reference range was not used to int erpret this result as normal/abnormal . UA Mucous (test code = NOT SEEN Not Seen-Trace 21032-7) /HPF UA Bacteria (test code NOT SEEN NOT SEEN /HPF = 60274-9) UA Squam Epi (test NOT SEEN None-Occasional code = 01614-1) /HPF UA WBC Clump (test OCC NOT SEEN /HPF A code = 03102-6) Lab Interpretation Abnormal (test code = 52584-9) [facility] Center[facility]inalysis w/Microscopic if [id number] 22:42:01 Test Item Value Reference Range Interpretation Comments UA Color (test code = 44800-5) Yellow Straw-Yellow UA Appear (test code = 23075-1) Cloudy Clear A UA Glucose (test code = 5792-7) NEG NEG mg/dL UA Bili (test code = 5770-3) NEG NEG UA Ketones (test code = 5797-6) NEG NEG mg/dL UA Spec Grav (test code = 5810-7) 1.018 1.003-1.035 UA Blood (test code = 5794-3) Large NEG A UA pH (test code = 5803-2) 6.0 5.0-9.0 UA Protein (test code = 5804-0) 200 mg/dL NEG A UA Urobilinogen (test code = NEG NEG 5818-0) UA Nitrite (test code = 5802-4) NEG NEG UA Leuk Est (test code = 5799-2) Large NEG A Lab Interpretation (test code = Abnormal 15898-5) [facility] CenteraPTT2023-03-16 22:24:12 Test Item Value Reference Range Interpretation Comments aPTT (test code = 28.7 See_Comment [Automate d message] The 39726-2) system which ge nerated this result transmit oksana reference range : 22.8 - 34.2 second(s). The reference range was not used to interpr et this result as anuel l/abnormal. [facility] CenterProthrombin Time with [id number] 22:24:11 Test Item Value Reference Range Interpretation Comments PT (test code = 13.8 See_Comment [Automated message] The 5902-2) system which ge nerated this result transmit oksana reference range : 11.9 - 14.1 second(s). The reference range was not used to interpr et this result as anuel l/abnormal. INR (test code = 1.06 0.89-1.10 6301-6) [facility] CenterFractionated Cnxzrzfpc8361-02-02 22:13:44 Test Item Value Reference Range Interpretation Comments Bili Total (test 0.3 mg/dL <=1.2 Indocyanine Green (ICG) code = 1974-) may cause fal sely elevated biliru bin results. Total and direct bilirubin must not be measured from s amples containing indo cyanine green. False el evation of total bilirubin can be seen in patient s with IgG concentrations above 28 g/L. Bili Direct (test <=0.3 Indocyanin e Green (ICG) code = 1967-) may cause fal sely elevated biliru bin results. Total and direct bilirubin must not be measured from s amples containing indo cyanine green. Bili Indirect (test See Note 0.0-0.9 Unable t o calculate code = 1970-) Indirect Bili fowler result due to some par ameters are outside rep ortable range [facility] CenterPhosphorus [id number] 22:13:42 Test Item Value Reference Range Interpretation Comments Phosphorus (test code = 2777-1) 3.3 mg/dL 2.5-4.5 [facility] CenterCalcium [id number] 22:13:40 Test Item Value Reference Range Interpretation Comments Calcium Lvl (test code = 58145-1) 10.4 mg/dL 8.4-10.2 H Lab Interpretation (test code = Abnormal 17758-1) [facility] CenterGlomerular Filtration Rate 2023-01-12 22:13:39 Test Item Value Reference Range Interpretation Comments eGFR (test code = 58 See_Comment [place] [address]-0) calculated with the 2020 CKD-EPI cr eatinine equation using creatinine, pat ient's age, and sex fo r adults 18 years of age and older. Other fa ctors, especially musc le mass, may affect accu racy and need to be considered.Acco rding to the Kidney Dise ase: Improving Globa l Outcomes (KDIGO ) CKD Work Group 2012 Clinical Practi ce Guideline, machine stoppage frequency checker corine kidney disease (CKD) is defined as the abnormalities o f kidney structure or fu nction, present for mor e than 3 months, with implications fo r health. CKD denisse uld be classified by c ause, GFR category, a nd albuminuria cat egory. KDIGO guideline s provide the fol lowing GFR categoriesS tage Description GFR mL/min/1.73 m2G 1* Normal or high >= 90G2* Mildly decrease d 60-89G3a Mildly to moderately decr eased 45-59G3b Modera tely to severely decrea sed 30-44G4 Severel y decreased 15-29 G5 Kidney failure <15*In the absence of evidence of kidney damag e, neither G1 nor G2 fulfill criteri a for CKD. [Automated message] The sy stem which generated this result transmit oksana reference range : >=60 mL/min/1.73 sq. m. The reference range was not used to interpr et this result as normal/abnormal . Lab Interpretation Abnormal (test code = 93423-9) [facility] CenterAlbumin [id number] 22:13:38 Test Item Value Reference Range Interpretation Comments Albumin Lvl (test code 4.1 See_Comment [Aut omated message] The = 1751-7) system which ge nerated this result tra nsmitted reference range : 3.5 - 5.2 gm/dL. The refe rence range was not used to interpret this result as normal/abnormal . [facility] CenterTotal [id number] 22:13:37 Test Item Value Reference Range Interpretation Comments Total Protein (test code = 2885-2) 7.5 g/dL 6.4-8.3 [facility] CenterAspartate Aminotransferase 2023-01-12 22:13:36 Test Item Value Reference Range Interpretation Comments AST (test code = 1920-8) 13 U/L <=40 [facility] CenterMagnesium [id number] 22:13:35 Test Item Value Reference Range Interpretation Comments Magnesium (test code = 90044-2) 2.2 mg/dL 1.6-2.6 [facility] CenterElectrolyte [id number] 22:13:34 Test Item Value Reference Range Interpretation Comments Sodium Lvl (test code = 143 See_Comment [Au tomated message] The 2950-11) system which ge nerated this result tra nsmitted reference range : 136 - 145 mEq/L. The reference range was not u sed to interpret this result as normal/abnormal . Potassium Lvl (test 3.9 See_Comment [Automa oksana message] The code = 2823-3) system which generated this result tra nsmitted reference range : 3.5 - 5.1 mEq/L. The reference range was not u sed to interpret this result as normal/abnormal . Chloride (test code = 105 See_Comment [Auto mated message] The ) system which ge nerated this result tra nsmitted reference range : 98 - 107 mEq/L. The refe rence range was not u sed to interpret this result as normal/abnormal . CO2 (test code = 28 See_Comment [Automated message] The 2028-06) system which ge nerated this result tra nsmitted reference range : 22 - 29 mEq/L. The refe rence range was not u sed to interpret this result as normal/abnormal . Anion Gap (test code = 10 See_Comment [Aut omated message] The ) system which ge nerated this result tra nsmitted reference range : 4 - 14 mEq/L. The refe rence range was not u sed to interpret this result as normal/abnormal . [facility] CenterAlkaline [id number] 22:13:33 Test Item Value Reference Range Interpretation Comments Alk Phos (test code = 6768-6) 55 U/L 40-129 [facility] CenterGlucose [id number] 22:13:32 Test Item Value Reference Range Interpretation Comments Glucose Level (test code 126 mg/dL 70-99 H Eff ective 05/25/16, = 2345-7) the glucose reference inter vals have been updat ed based on [place] an Diabetes Associ ation guidelines (Standards of Medical Care in Diabetes 2016. Diabetes Care 2 016; 39: S13-S22).Fa sting blood glucose:Normal: 70-99 mg/dLImpa ired fasting glucose (increased risk for diabetes or pre-diabetes): 100-125 mg/dLDiabetes mellitus: >/=12 6 mg/dL Random bl ood glucose:Normal: 70-199 mg/dLNot e: Random glucose >100 mg/dL is associ ated with increased risk for diabetes Lab Interpretation (test Abnormal code = 88359-4) [facility] CenterALT2023-03-16 22:13:31 Test Item Value Reference Range Interpretation Comments ALT (test code = 1742-6) 13 U/L <=41 [facility].Serum [id number] 22:13:30 Test Item Value Reference Range Interpretation Comments Creatinine (test code = 2160-0) 1.38 mg/dL 0.67-1.17 H Lab Interpretation (test code = Abnormal 97307-9) [facility] CenterBUN2023-03-16 22:13:29 Test Item Value Reference Range Interpretation Comments BUN (test code = 3094-0) 22 mg/dL 6-23 [facility] CenterDifferential2023-03-16 21:45:39 Test Item Value Reference Range Interpretation Comments Neutrophil % (test code = 72.9 % 42.0-66.0 H 770-8) Lymphocyte % (test code = 12.9 % 24.0-44.0 L 736-9) Monocyte % (test code = 9.0 % 2.0-7.0 H 5905-5) Eosinophil % (test code = 4.2 % 1.0-4.0 H 713-8) Basophil % (test code = 0.5 % 0.0-1.0 706-2) IGRE % (test code = 0.5 % 0.0-0.4 H IGRE % c ount 02042-5) includes Metamyelocytes, Myelocytes, and Promyelocytes. Neutrophil Abs (test code 11.20 K/uL 1.70-7.30 H = 751-8) Lymphocyte Abs (test code 1.98 K/uL 1.00-4.80 = 731-0) Monocyte Abs (test code = 1.39 K/uL 0.08-0.70 H 742-7) Eosinophil Abs (test code 0.64 K/uL 0.04-0.40 H = 711-2) Basophil Abs (test code = 0.08 K/uL 0.00-0.10 704-7) IG Abs (test code = 0.08 K/uL 0.00-0.04 H 77555-3) Lab Interpretation (test Abnormal code = 35316-6) [facility] [place].[id number] 21:45:34 Test Item Value Reference Range Interpretation Comments WBC (test code = 15.4 K/uL 4.0-11.0 H 6690-2) RBC (test code = 789-8) 5.08 See_Comment [Au tomated message] The system [employer] generated this result transmitted ref erence range: 4.50 - 6 .00 M/uL. The refer ence range was not u sed to interpret this result as normal/abnor mal. Hgb (test code = 718-7) 14.8 See_Comment [Au tomated message] The system [employer] generated this result transmitted ref erence range: 14.0 - 1 8.0 gm/dL. The refe rence range was not u sed to interpret this result as normal/abnor mal. Hct (test code = 45.2 % 40.0-54.0 4544-3) MCV (test code = 787-2) 89 fL 82-98 MCH (test code = 785-6) 29.1 pg 27.0-31.0 MCHC (test code = 32.7 See_Comment [Automate d message] 786-4) The system [employer] generated this result transmitted ref erence range: 31.0 - 3 6.0 gm/dL. The refe rence range was not u sed to interpret this result as normal/abnor mal. RDW-SD (test code = 42.6 fL 35.1-46.3 87927-6) RDW-CV (test code = 13.1 % 12.0-15.5 788-0) Platelet count (test 441 K/uL 140-440 H code = 777-3) MPV (test code = 9.5 fL 4.0-10.4 99637-9) INRBC (test code = 0.0 % <=0.0 The INRBC (instrument 53379-6) NRBC) value ref lects the enumeration of nucleated red b lood cells contained in a 200uL sampleof whole blood analyzed by the instrument. Thi s value maydiffer from the NRBC value reported in a m anual differential,wh ich is based on a 100 cell differential. Lab Interpretation Abnormal (test code = 15621-0) [facility] [place]
[2023-01-20] MEDS ORDERED: ACETAMINOPHEN 500 MG TAB ONE (18:34)
[2023-01-20 18:38] LABS: Absolute Lymphocytes (CBC) 1.3 K/uL (0.7-4.9); Hematocrit 38.1 % (39.6-49.0); Lymphocytes % 6.1 % (15.3-44.8); MCV 86.4 fL (80-100); MPV 7.9 fL (7.6-11.3)
[2023-01-20 18:41] LABS: Protime INR 1.13
[2023-01-20 18:52] LABS: Bilirubin Total 0.5 mg/dL (0.2-1.0); Potassium 3.7 mEq/L (3.5-5.1); Protein, Total 6.7 g/dL (6.4-8.2)
[2023-01-20 18:57] LABS: Specific Gravity > 1.030 (1.005-1.030); Urine Bilirubin NEGATIVE (Negative); Urine Blood 3+ (Negative); Urine Clarity Turbid (Clear); Urine Color Light-Yellow (Yellow); Urine Glucose NEGATIVE (Negative); Urine Mucus Slight /HPF (None Seen); Urine Protein 1+ (Negative); Urine RBC >50 /HPF (None Seen); Urine Urobilinogen Normal (Normal); Urine pH 6.5 (5.0-7.0)
[2023-01-20 18:58] LABS: Urine Bacteria 20-50 /HPF (<20)
[2023-01-20] MEDS ORDERED: Ringers Lactate 1,000 ML IV ONE (19:11)
[2023-01-20 19:13] LABS: SARS-COV-2 RT PCR NEGATIVE (NEGATIVE)
--- NOTE | 2023-01-20 19:13 | RAD REPORT ---
EXAM DESCRIPTION: [facility] Single View01/20/2023 6:46 pm CLINICAL HISTORY: sob COMPARISON: none FINDINGS: The lungs appear clear of acute infiltrate. The heart is normal size IMPRESSION: No acute abnormalities displayed
[2023-01-20 19:15] LABS: Blood Morphology Comment NOT SEEN (NOT SEEN); Platelet Estimate ADEQ; White Blood Cell Scan OK (OK)
[2023-01-20] MEDS ORDERED: CEFTRIAXONE 2000 MG/VIAL ONE (19:48)
--- NOTE | 2023-01-20 20:03 | P.HP ---
Certification for Inpatient Patient admitted to: Observation With expected LOS: <2 Midnights Patient will require the following post-hospital care: None Practitioner: I am a practitioner with admitting privileges, knowledge of patient current condition, hospital course, and medical plan of care. Services: Services provided to patient in accordance with Admission requirements found in Title 42 Section 412.3 of the Code of Federal Regulations Patient History Date of Service: 01/20/23 Reason for admission: UTI, Sepsis History of Present Illness: Patient is a 62 year old male with past medical history of type 2 diabetes, prostate cancer s/p prostatectomy, hypertension, and hyperlipidemia who presented to the emergency department with fever, chills, shortness of breath. Patient has been experiencing urinary retention and was recently referred to [facility] as he had an abnormal cystoscopy. He had a monae catheter placed 1 week ago and today had a CT abdomen pelvis with contrast. On Monday, he is scheduled to have a bladder biopsy. Today his urine is turbid, positive for UTI with 3+ blood, 500 LE, >50 WBC, 20-50 bacteria. His labs are significant for WBC 20 with left shift, sodium 134, BUN 22. CT abdomen pelvis showed "Nonobstructing renal calculi, Moderate stranding adjacent to the bladder may indicate inflammation, and Moderate to large right inguinal hernia." He was given IV fluids, antipyretics, and rocephin in the emergency department. He reports feeling moderately improved. Fever has come down to 100.3. Patient will be admitted for further management of sepsis secondary to UTI. Allergies Penicillins Allergy (Verified 06/06/18 00:22) Itching/Hives/Rash Home medications list reviewed: Yes Home Medications: Fenofibrate Nanocrystallized [Fenofibrate] 145 mg PO DAILY 06/06/18 Metformin HCl 500 mg PO DAILY 06/06/18 Rosuvastatin Calcium 10 mg PO DAILY 06/06/18 - Past Medical/Surgical History Diabetic: Yes -: DM II -: kidney stones -: prostate cancer -: high cholesterol -: sleep apnea -: lithotripsy -: hernia repair -: knee surgery -: prostatectomy Psychosocial/ Personal History: Patient is . - Family History Family History: Reviewed- Non-Contributory - Social History Smoking Status: Never smoker Alcohol use: Yes CD- Drugs: No Caffeine use: Yes Place of Residence: Home Review of Systems General: Fever, Chills Respiratory: Shortness of Breath Physical Examination - Vital Signs Temperature: 100.3 F Blood Pressure: 150/77 Pulse: 110 Respirations: 16 Pulse Ox (%): 95 - Physical Exam General: Alert, In no apparent distress HEENT: Atraumatic, EOMI, Sclerae nonicteric Neck: Supple, 2+ carotid pulse no bruit Respiratory: Clear to auscultation bilaterally, Normal air movement Cardiovascular: Regular rate/rhythm, Normal S1 S2 Gastrointestinal: Normal bowel sounds, No tenderness Musculoskeletal: No tenderness Integumentary: No rashes Neurological: Normal speech, Normal affect Urinary: Monae catheter - Studies Laboratory Data (last 24 hrs) 01/20/23 18:17: PT 12.4, INR 1.13, APTT 27.4 01/20/23 18:17: Sodium 134 L, Potassium 3.7, BUN 22 H, Creatinine 1.22, Glucose 150 H, Total Bilirubin 0.5, AST 10 L, ALT 17, Alkaline Phosphatase 49 01/20/23 18:17: WBC 20.80 H, Hgb 12.6 L, Hct 38.1 L, Plt Count 391 Assessment and Plan - Problems (Diagnosis) (1) UTI (urinary tract infection) Current Visit: Yes Status: Acute Qualifiers: Urinary tract infection type: catheter-associated UTI Indwelling urinary catheter type: indwelling urethral catheter Encounter type: initial encounter Qualified Code(s): T83.511A - Infection and inflammatory reaction due to indwelling urethral catheter, initial encounter; N39.0 - Urinary tract infection, site not specified (2) Sepsis Current Visit: Yes Status: Acute Qualifiers: Sepsis type: sepsis due to unspecified organism Sepsis acute organ dysfunction status: without acute organ dysfunction Qualified Code(s): A41.9 - Sepsis, unspecified organism (3) Diabetes mellitus Current Visit: Yes Status: Chronic Qualifiers: Diabetes mellitus type: type 2 Diabetes mellitus snf insulin use: without snf use Diabetes mellitus complication status: with hyperglycemia Qualified Code(s): E11.65 - Type 2 diabetes mellitus with hyperglycemia (4) Hyperlipidemia Current Visit: Yes Status: Chronic Qualifiers: Hyperlipidemia type: unspecified Qualified Code(s): E78.5 - Hyperlipidemia, unspecified (5) Hypertension Current Visit: Yes Status: Chronic Qualifiers: Hypertension type: primary hypertension Qualified Code(s): I10 - Essential (primary) hypertension - Plan Patient is admitted for further management of sepsis secondary to UTI. Continue rocephin. Urine and blood cultures obtained. Lactate normal. BP normotensive. Monae catheter in place, was inserted 1 week ago. Scheduled for bladder biopsy at [facility] on 01/24. Monitor temp closely, is down trending. Antipyretics as needed. Continue IV hydration. ACHS accu checks with mild sliding scale and diabetic diet. Monitor and replete electrolytes per protocol. Reconcile and continue home medications. Discharge Plan: Home Plan to discharge in: 24 Hours - Advance Directives Does patient have a Living Will: Yes Does patient have a Durable POA for Healthcare: Yes - Code Status/Comfort Care Code Status Assessed: Yes Code Status: Full Code Physician Review: Patient Assessed, Agree with Above Assessment and Plan Critical Care: No Time Spent Managing Pts Care (In Minutes): 50
--- NOTE | 2023-01-20 20:57 | RAD REPORT ---
EXAM DESCRIPTION: CT - Stone Protocol - 01/20/2023 8:15 pm CLINICAL HISTORY: Abdominal pain. COMPARISON: None. TECHNIQUE: Computed axial tomography of the abdomen pelvis was obtained without oral or IV contrast. Lack of IV and oral contrast limits evaluation of solid organs, appendix, bowel, and vessels. Jones l reformatted images were obtained and reviewed. All CT scans are performed using dose optimization technique as appropriate and may include automated exposure control or mA/KV adjustment according to patient size. FINDINGS: Contrast from a CT at an outside institution today is present within portions of the genit ourinary system A Palmer catheter is present within the bladder. The bladder is incompletely distended. Contrast is pr esent within the bladder. Contrast is also present within 2 bladder diverticuli. Moderate stranding a djacent to the bladder. Bilateral renal calculi. No hydronephrosis. Renal cystic masses. Cholelithiasis. No gallbladder wall thickening The liver, spleen, pancreas and adrenals appear grossly normal There is no evidence of diverticulitis. The appendix appears normal Moderate to large right inguinal hernia containing fat. Postsurgical changes left inguinal hernia rep air Slight posterior subluxation of L5 on S1 Small to moderate umbilical hernia contains a small portion of nondilated small bowel IMPRESSION: Nonobstructing renal calculi Moderate stranding adjacent to the bladder may indicate inflammation Moderate to large right inguinal hernia
--- NOTE | 2023-01-20 21:23 | ER ---
Nurse's Notes [facility] Name: Chau Rubio Age: 62 yrs Sex: Male : 1960 Arrival Date: 01/20/2023 Time: 17:20 Bed 18 Private MD: Diagnosis: UTI/ Urinary tract infection, site not specified;Sepsis, unspecified organism Presentation: 01/20 17:37 Chief complaint: Chest tightness, SOB, headache, and chills that started at 1400 today. hb Coronavirus screen: Client presents with at least one sign or symptom that may indicate coronavirus-19. Standard/surgical mask placed on the client. Provider contacted for isolation considerations. Ebola Screen: No symptoms or risks identified at this time. Initial Sepsis Screen: Does the patient meet any 2 criteria? Temp <36.0*C (96.8*F)) or > 38.3*C (100.9*F). HR > 90 bpm. Yes Does the patient have a suspected source of infection? No. Patient's initial sepsis screen is negative. Risk Assessment: Do you want to hurt yourself or someone else? Patient reports no desire to harm self or others. Onset of symptoms was January 20, 2023. 17:37 Method Of Arrival: Ambulatory hb 17:37 Acuity: ABRAHAN 2 hb Triage Assessment: 20:41 General: Appears. Respiratory: Onset: The symptoms/episode began/occurred suddenly, the kr3 patient has mild shortness of breath. Historical: - Allergies: 17:41 PENICILLINS; hb - PMHx: 17:41 CANCER - PROSTATE; Diabetes - NIDDM; High Cholesterol; Kidney stones; knee surg; hb - Immunization history:: Adult Immunizations up to date. - Social history:: Smoking status: Patient denies any tobacco usage or history of. Screenin:34 [facility] ED Fall Risk Assessment (Adult) History of falling in the last 3 months, kr3 including since admission No falls in past 3 months (0 pts) Confusion or Disorientation No (0 pts) Intoxicated or Sedated No (0 pts) Impaired Gait No (0 pts) Mobility Assist Device Used No (0 pt) Altered Elimination No (0 pt) Score/Fall Risk Level 0 - 2 = Low Risk Oriented to surroundings, Maintained a safe environment, Educated pt \T\ family on fall prevention, incl call for assistance when getting out of bed, Assessed \T\ reinforced patient's understanding of fall precautions, Hourly rounding (assess needs \T\ fall precautionary measures) done. Abuse screen: Denies threats or abuse. Nutritional screening: No deficits noted. Tuberculosis screening: No symptoms or risk factors identified. Assessment: 20:36 General: Appears in no apparent distress. uncomfortable, Behavior is calm, cooperative, kr3 appropriate for age. Pain:. Neuro: Level of Consciousness is awake, alert, obeys commands, Oriented to person, place, time, situation. Cardiovascular: Patient's skin is warm and dry. Cardiovascular: Rhythm is regular. Respiratory: Airway. Respiratory: Airway is patent Respiratory effort is even, unlabored, Respiratory pattern is regular, symmetrical. GI: No signs and/or symptoms were reported involving the gastrointestinal system. : Reports. : Reports. EENT: No signs and/or symptoms were reported regarding the EENT system. Derm: No signs and/or symptoms reported regarding the dermatologic system. Musculoskeletal: No signs and/or symptoms reported regarding the musculoskeletal system. 20:41 Respiratory: Breath sounds are clear bilaterally. kr3 Vital Signs: 17:37 BP 150 / 77; Pulse 110; Resp 16; Temp 103.3(TE); Pulse Ox 95% on R/A; Weight 86.18 kg; hb Height 5 ft. 8 in. ; Pain 2/10; 19:09 Temp 100.3; kr3 20:21 BP 113 / 55; Pulse 93; Resp 18; Temp 99.3; Pulse Ox 94% on R/A; kr3 17:37 Body Mass Index 28.89 (86.18 kg, 172.72 cm) hb 17:37 Pain Scale: Adult hb ED Course: 16:30 Inserted saline lock: 20 gauge in right forearm, using aseptic technique. Blood kr3 collected. 17:20 Patient arrived in ED. mr 17:31 Jerson Wilson PA is PHCP. [facility] 17:31 Shine Pedro MD is Attending Physician. [facility] 17:41 Triage completed. hb 17:41 Arm band placed on. hb 17:54 Brittany Slaughter, RN is Primary Nurse. kr3 18:05 Bed in low position. Call light in reach. Side rails up X 1. kr3 18:28 COVID-19/FLU A+B Sent. kr3 18:48 Chest Single View XRAY In Process Unspecified. EDMS 19:29 Toro Madrigal is Hospitalizing Provider. jmm 20:40 No provider procedures requiring assistance completed. kr3 20:41 Patient admitted, IV remains in place. kr3 20:56 Report given to NATTY loyola. kr3 21:04 Toro Madrigal is Hospitalizing Provider. sb4 Administered Medications: 18:34 Drug: Acetaminophen PO 1000 mg Route: PO; kr3 20:57 Follow up: Response: No adverse reaction kr3 19:11 Drug: Lactated Ringers Solution IV 1000 ml Route: IV; Rate: 1000 bolus; Site: right kr3 forearm; 20:57 Follow up: Response: No adverse reaction; IV Status: Completed infusion; IV Intake: kr3 1000ml 19:50 Drug: Rocephin IV 2 grams Route: IV; Rate: calculated rate; Site: right forearm; kr3 20:56 Follow up: Response: No adverse reaction; IV Status: Completed infusion; IV Intake: kr3 100ml Medication: 20:42 VIS not applicable for this client. kr3 Intake: 20:56 IV: 100ml; Total: 100ml. kr3 20:57 IV: 1000ml; Total: 1100ml. kr3 Outcome: 19:30 Decision to Hospitalize by Provider. jmm 20:41 Admitted to Med/surg kr3 20:41 Condition: stable 20:41 Instructed on the need for admit. 20:56 Decision to Hospitalize by Provider. mw 20:57 ER care complete, transfer ordered by MD. sb4 21:05 Decision to Hospitalize by Provider. sb4 21:31 Patient left the ED. kr3 Signatures: Dispatcher [employer] EDMS Demetria Arguello RN Jerson Griffith PA PA jmm Rivera, Mary mr Amy Gay RN RN hb Reid, Kelley, RN RN kr3 Brown, Sophia, PA-C PAShawn sb4
--- NOTE | 2023-01-20 21:23 | EDPHYS ---
Physician Documentation [facility] Name: Chau Rubio Age: 62 yrs Sex: Male : 1960 Arrival Date: 01/20/2023 Time: 17:20 Bed 18 Private MD: ED Physician Shine Pedro HPI: 01/20 17:40 This 62 yrs old Male presents to ER via Ambulatory with complaints of Chills, Shortness jmm Of Breath, Doesn't Feel Right, after CT scan. 17:40 Onset: The symptoms/episode began/occurred acutely, today. Modifying factors: there are jmm no obvious modifying factors. Associated signs and symptoms: Pertinent positives:. Is a 62-year-old male with history of diabetes mellitus, hyperlipidemia the presents emerged department with complaints of headache, body aches, fever beginning today. Patient does have a Palmer catheter which was inserted at MD [facility]. . Historical: - Allergies: 17:41 PENICILLINS; hb - PMHx: 17:41 CANCER - PROSTATE; Diabetes - NIDDM; High Cholesterol; Kidney stones; knee surg; hb - Immunization history:: Adult Immunizations up to date. - Social history:: Smoking status: Patient denies any tobacco usage or history of. ROS: 17:40 Cardiovascular: Negative for chest pain, palpitations, and edema. jmm 17:40 Constitutional: Positive for body aches, fever. 17:40 Respiratory: Positive for shortness of breath. 17:40 Neuro: Positive for headache. 17:40 All other systems are negative. Exam: 17:40 Constitutional: This is a well developed, well nourished patient who is awake, alert, jmm and in no acute distress. Head/Face: atraumatic. Eyes: EOMI, no conjunctival erythema appreciated ENT: Moist Mucus Membranes Neck: Trachea midline, Supple Chest/axilla: Normal chest wall appearance and motion. Cardiovascular: Regular rate and rhythm. No edema appreciated Respiratory: Normal respirations, no respiratory distress appreciated Abdomen/GI: Non distended Back: Normal ROM Skin: General appearance color normal MS/ Extremity: Moves all extremities, no obvious deformities appreciated, no edema noted to the lower extremities Neuro: Awake and alert Psych: Behavior is normal, Mood is normal, Patient is cooperative and pleasant Vital Signs: 17:37 BP 150 / 77; Pulse 110; Resp 16; Temp 103.3(TE); Pulse Ox 95% on R/A; Weight 86.18 kg; hb Height 5 ft. 8 in. ; Pain 2/10; 19:09 Temp 100.3; kr3 20:21 BP 113 / 55; Pulse 93; Resp 18; Temp 99.3; Pulse Ox 94% on R/A; kr3 17:37 Body Mass Index 28.89 (86.18 kg, 172.72 cm) hb 17:37 Pain Scale: Adult hb MDM: 17:40 Patient medically screened. [facility] 19:23 Differential diagnosis: viral Infection, bacterial infection, URI. Data reviewed: vital [facility] signs, nurses notes, lab test result(s). Consideration of Admission/Observation Patient was admitted/placed on observation. Management of patient was discussed with the following: Hospitalist: Karyn Chase PA-C. I considered the following discharge prescriptions or medication management in the emergency department Medications were administered in the Emergency Department. See MAR. ED course: A source of infection is urine, be patient does meet SIRS criteria for hypothermia, elevated heart rate, elevated white blood cell count see patient does not meet 1 or more organ dysfunction criteria.. 01/20 17:41 Order name: Blood Culture Adult (2) [facility] 01/20 17:41 Order name: CBC with Diff; Complete Time: 19:25 [facility] 01/20 17:41 Order name: CMP; Complete Time: 18:53 [facility] 01/20 17:41 Order name: Lactate w/ 2H reflex if indic.; Complete Time: 18:54 [facility] 01/20 17:41 Order name: Protime (+inr); Complete Time: 18:50 [facility] 01/20 17:41 Order name: Ptt, Activated; Complete Time: 18:50 [facility] 01/20 17:41 Order name: Urinalysis w/ reflexes; Complete Time: 19:01 [facility] 01/20 17:42 Order name: COVID-19/FLU A+B; Complete Time: 19:15 [facility] 01/20 18:43 Order name: CBC Smear Scan; Complete Time: 19:25 [facility] 01/20 18:58 Order name: Strep; Complete Time: 20:52 [facility] 01/20 19:01 Order name: Urine Culture [facility] 01/20 19:03 Order name: Urine Culture [facility] 01/20 18:23 Order name: Chest Single View XRAY; Complete Time: 20:41 [facility] 01/20 20:02 Order name: CT Stone Protocol sb4 01/20 17:41 Order name: EKG; Complete Time: 17:42 [facility] 01/20 17:41 Order name: Accucheck; Complete Time: 19:51 m 01/20 17:41 Order name: Cardiac monitoring; Complete Time: 18:28 [facility] 01/20 17:41 Order name: EKG - Nurse/Tech; Complete Time: 19:51 [facility] 01/20 17:41 Order name: IV Saline Lock - Large Bore; Complete Time: 18:28 [facility] 01/20 17:41 Order name: Labs collected and sent; Complete Time: 18:28 [facility] 01/20 17:41 Order name: O2 Per Protocol; Complete Time: 17:54 [facility] 01/20 17:41 Order name: O2 Sat Monitoring; Complete Time: 17:54 [facility] 01/20 17:41 Order name: Vital Signs; Complete Time: 18:28 jmm Administered Medications: 18:34 Drug: Acetaminophen PO 1000 mg Route: PO; kr3 20:57 Follow up: Response: No adverse reaction kr3 19:11 Drug: Lactated Ringers Solution IV 1000 ml Route: IV; Rate: 1000 bolus; Site: right kr3 forearm; 20:57 Follow up: Response: No adverse reaction; IV Status: Completed infusion; IV Intake: kr3 1000ml 19:50 Drug: Rocephin IV 2 grams Route: IV; Rate: calculated rate; Site: right forearm; kr3 20:56 Follow up: Response: No adverse reaction; IV Status: Completed infusion; IV Intake: kr3 100ml Disposition Summary: 01/20/23 21:05 Hospitalization Ordered Hospitalization Status: Inpatient Admission(01/20/23 21:05) sb4 Provider: Toro Madrigal(01/20/23 21:05) sb4 Location: Telemetry/MedSur (Inpatient)(01/20/23 21:05) sb4 Condition: Fair(01/20/23 21:05) sb4 Problem: new(01/20/23 21:05) sb4 Symptoms: are unchanged(01/20/23 21:05) sb4 Bed/Room Type: Standard(01/20/23 21:05) sb4 Room Assignment: 207(01/20/23 21:05) Diagnosis - UTI/ Urinary tract infection, site not specified(01/20/23 21:05) sb4 - Sepsis, unspecified organism(01/20/23 21:05) sb4 Forms: - Medication Reconciliation Form sb4 - SBAR form sb4 Addendum: 01/24/2023 19:31 Co-signature as Attending Physician, Shine Pedro MD I agree with the assessment and r t plan of care. I reviewed the patient's care provided by the Advanced Practice Provider and agree with the diagnosis and treatment plan. Signatures: Dispatcher [employer] EDMS Demetria Arguello RN RN Jerson Wilson PA PA jmm Baxter, Heather, RN RN Brittany Slaughter RN RN kr3 Ashley Chase PAErisC PAShawn sb4 Shine Pedro MD MD rt Corrections: (The following items were deleted from the chart) 01/20 20:14 19:30 [facility] 20:56 19:30 Observation [facility] sb4 20:56 19:30 Toro Madrigal [facility] sb4 20:56 19:30 Telemetry/MedSurg (observation) [facility] sb4 20:56 19:30 Stable [facility] sb4 20:56 19:30 new [facility] sb4 20:56 19:30 are unchanged [facility] sb4 20:56 19:30 Standard [facility] sb4 20:56 19:30 UTI/ Urinary tract infection, site not specified [facility] sb4 20:56 19:30 Sepsis, unspecified organism - Without Septic Shock [facility] sb4 20:56 20:14 207 sb4 20:56 20:56 Telemetry/MedSurg (Inpatient) sb4 20:56 20:56 sb4 21:04 20:57 [facility] Doc sb4 sb4 21:04 20:57 [facility] sb4 sb4 21:04 20:57 Higher level of care sb4 sb4 21:04 20:57 Fair sb4 sb4 21:04 20:57 new sb4 sb4 21:04 20:57 are unchanged sb4 sb4 21:04 20:57 Severe sepsis without septic shock sb4 sb4 21:04 20:57 UTI/ Urinary tract infection, site not specified sb4 sb4 21:04 20:57 Hydronephrosis with renal and ureteral calculous obstruction sb4 sb4 21:05 21:05 sb4 mw
[2023-01-20] MEDS ORDERED: ONDANSETRON 4 MG/2 ML VIAL IV PRN (21:26)
[2023-01-20] MEDS ORDERED: ACETAMINOPHEN 500 MG TAB PO PRN (21:26)
[2023-01-20 22:00] VITALS: BMI 29.9
[2023-01-20] MEDS: NA CHLORIDE 0.9% 1,000 ML IV SCH (22:59)
[2023-01-21 06:06] LABS: Absolute Lymphocytes (CBC) 1.7 K/uL (0.7-4.9); Lymphocytes % 10.9 % (15.3-44.8); MCV 86.8 fL (80-100); MPV 7.6 fL (7.6-11.3); RBC Red Blood Cell Count 4.15 M/uL (4.33-5.43)
[2023-01-21 06:18] LABS: Phosphorus 2.9 mg/dL (2.5-4.9); Potassium 3.7 mEq/L (3.5-5.1)
[2023-01-21] MEDS: INSULIN -REGULAR HUMAN 50 UNIT/0.5 ML ML SQ SCH ×4 (07:30→20:47)
[2023-01-21] MEDS: CEFTRIAXONE 1,000 MG in NA CHLORIDE 0.9% 50 ML IVPB SCH (08:39)
[2023-01-21] MEDS ORDERED: POTASSIUM CL SA 10 MEQ TAB PO ONE (09:00)
[2023-01-21 10:43] LABS: Renal Epithelial <5 /HPF (None Seen); Specific Gravity 1.008 (1.005-1.030); Urine Bacteria <20 /HPF (<20); Urine Bilirubin NEGATIVE (Negative); Urine Blood 2+ (Negative); Urine Clarity Extremely Turbid (Clear); Urine Color Yellow (Yellow); Urine Glucose NEGATIVE (Negative); Urine Mucus Slight /HPF (None Seen); Urine Protein 1+ (Negative); Urine RBC 21-50 /HPF (None Seen); Urine Urobilinogen Normal (Normal); Urine WBC Clump Many /HPF (None Seen)
[2023-01-21] MEDS: NA CHLORIDE 0.9% 1,000 ML IV SCH ×2 (11:20→12:48)
--- NOTE | 2023-01-21 13:43 | P.PN ---
Subjective Date of Service: 01/21/23 Chief Complaint: UTI, Sepsis Patient states he feels better today compared to yesterday. No recorded fever. He has an indwelling Palmer-present on admit. Physical Examination - Vital Signs Temperature: 97.9 F Blood Pressure: 131/70 Pulse: 79 Respirations: 16 Pulse Ox (%): 95 - Studies Laboratory Data (last 24 hrs) 01/20/23 18:17: PT 12.4, INR 1.13, APTT 27.4 01/20/23 18:17: Sodium 134 L, Potassium 3.7, BUN 22 H, Creatinine 1.22, Glucose 150 H, Total Bilirubin 0.5, AST 10 L, ALT 17, Alkaline Phosphatase 49 01/20/23 18:17: WBC 20.80 H, Hgb 12.6 L, Hct 38.1 L, Plt Count 391 Microbiology Data (last 24 hrs): 01/20/23 19:46 Throat Group A Streptococcus Rapid Screen - Final Assessment And Plan - Current Problems (Diagnosis) (1) Catheter-associated urinary tract infection Current Visit: Yes Status: Acute (2) Bladder mass Current Visit: Yes Status: Acute (3) History of urinary retention Current Visit: Yes Status: Acute (4) Diabetes mellitus Current Visit: Yes Status: Chronic Qualifiers: Diabetes mellitus type: type 2 Diabetes mellitus chcf insulin use: without chcf use Diabetes mellitus complication status: with hyperglycemia Qualified Code(s): E11.65 - Type 2 diabetes mellitus with hyperglycemia (5) Nephrolithiasis Current Visit: No Status: Chronic (6) Sepsis Current Visit: Yes Status: Acute Qualifiers: Sepsis type: sepsis due to unspecified organism Sepsis acute organ dysfunction status: without acute organ dysfunction Qualified Code(s): A41.9 - Sepsis, unspecified organism - Plan Physical Exam General: Alert, In no apparent distress Neck: Supple, no elevated JVD Respiratory: Clear to auscultation bilaterally, Normal air movement Cardiovascular: Regular rate/rhythm, Normal S1 S2 Gastrointestinal: Normal bowel sounds, No tenderness Musculoskeletal: No tenderness Integumentary: No rashes Neurological: Normal speech, Normal affect Urinary: Palmer catheter. Plan: Patient with recurrent UTI. UTI complicated given presence of kidney stones, bladder mass and chronic indwelling Palmer. Will change IV antibiotics to meropenem. Follow urine culture and blood cultures. Pain management as tolerated. Monitor CBC to follow leukocytosis. Patient reports prior difficulty inserting a Palmer catheter due to his bladder mass and will only have his Palmer catheter changed during follow-up with his urologist within 3 days. Continue IV fluid Insulin sliding scale for glucose management.
[2023-01-21] MEDS: Meropenem 1,000 MG in NA CHLORIDE 0.9% 100 ML IV SCH (18:13)
[2023-01-21] MEDS ORDERED: ATORVASTATIN 20 MG TAB PO SCH (21:00)
[2023-01-21] MEDS ORDERED: MELATONIN 5 MG TABLET PO PRN (23:06)
[2023-01-22] MEDS: NA CHLORIDE 0.9% 1,000 ML IV SCH (01:15)
[2023-01-22] MEDS: Meropenem 1,000 MG in NA CHLORIDE 0.9% 100 ML IV SCH ×2 (01:15→09:52)
[2023-01-22 05:51] LABS: Absolute Lymphocytes (CBC) 1.7 K/uL (0.7-4.9); Hematocrit 34.7 % (39.6-49.0); Lymphocytes % 13.9 % (15.3-44.8); MCV 86.5 fL (80-100); MPV 8.1 fL (7.6-11.3); RBC Red Blood Cell Count 4.01 M/uL (4.33-5.43)
[2023-01-22 06:01] LABS: Potassium 3.6 mEq/L (3.5-5.1)
[2023-01-22] MEDS: INSULIN -REGULAR HUMAN 50 UNIT/0.5 ML ML SQ SCH ×2 (07:30→11:30)
[2023-01-22] MEDS ORDERED: FENOFIBRATE 160 MG TAB PO SCH (09:00)
[2023-01-22] MEDS ORDERED: POTASSIUM CL SA 10 MEQ TAB PO ONE (09:00)
[2023-01-22] MEDS ORDERED: HOME MED 1 EA UNK (Simvastatin [Simvastatin] 40 MG Tablet) PO SCH (09:00)
[2023-01-22] MEDS: CEFTRIAXONE 1,000 MG in NA CHLORIDE 0.9% 50 ML IVPB SCH (09:52)
[2023-01-22 11:36] VITALS: O2SAT 97
[2023-01-22 12:18] VITALS: BP 141/77; TEMP 98.1
--- NOTE | 2023-01-22 12:32 | P.DS ---
Admission Date: 01/20/23 Discharge Date: 01/22/23 Disposition: ROUTINE DISCHARGE Discharge Condition: FAIR Reason for Admission: UTI, Sepsis - Problems (1) Catheter-associated urinary tract infection Current Visit: Yes Status: Acute (2) Bladder mass Current Visit: Yes Status: Acute (3) History of urinary retention Current Visit: Yes Status: Acute (4) Diabetes mellitus Current Visit: Yes Status: Chronic Qualifiers: Diabetes mellitus type: type 2 Diabetes mellitus group home insulin use: without degreasing solution reclaimer use Diabetes mellitus complication status: with hyperglycemia Qualified Code(s): E11.65 - Type 2 diabetes mellitus with hyperglycemia (5) Nephrolithiasis Current Visit: No Status: Chronic (6) Sepsis Current Visit: Yes Status: Acute Qualifiers: Sepsis type: sepsis due to unspecified organism Sepsis acute organ dysfunction status: without acute organ dysfunction Qualified Code(s): A41.9 - Sepsis, unspecified organism Brief History of Present Illness: Patient is a 62 year old male with past medical history of type 2 diabetes, prostate cancer s/p prostatectomy, hypertension, and hyperlipidemia who presented to the emergency department with fever, chills, shortness of breath. Patient has been experiencing urinary retention and was recently referred to [facility] as he had an abnormal cystoscopy showing a bladder mass. He had a monae catheter placed 1 week ago. He is scheduled to have a bladder biopsy. His urine was turbid, positive for UTI with 3+ blood, 500 LE, >50 WBC, 20-50 bacteria. His labs were significant for WBC 20 with left shift, sodium 134, BUN 22. CT abdomen pelvis showed "Nonobstructing renal calculi, Moderate stranding adjacent to the bladder may indicate inflammation, and Moderate to large right inguinal hernia." He was given IV fluids, antipyretics, and rocephin in the emergency department. He reported feeling moderately improved. He had fever up to 103. Patient admitted for further management. Hospital Course: Patient admitted to the medical floor and treated with broad-spectrum antibiotic-Rocephin which was later changed to IV meropenem. Patient with recurrent UTI. UTI complicated given presence of kidney stones, bladder mass and chronic indwelling Monae. Urine culture yielded no growth, blood culture yielded no growth. Noted patient has been on multiple antibiotics including Levaquin and later nitrofurantoin. Leukocytosis significantly improved. Patient reports prior difficulty inserting a Monae catheter due to his bladder mass and will only have his Monae catheter changed during follow-up with his urologist within 3 days. Monae catheter was clogged 1 time. Clot was relieved with manual irrigation. Patient states he feels much better. No fever over the past 48 hours. Patient request to go home. He is prescribed cefpodoxime and doxycycline to continue treatment for the UTI. Vital Signs/Physical Exam: Temp Pulse Resp BP Pulse Ox 98.1 F 71 16 141/77 H 95 01/22/23 12:00 01/22/23 12:00 01/22/23 12:00 01/22/23 12:00 01/22/23 12:00 General: Alert, In no apparent distress, Oriented x3 HEENT: Mucous membr. moist/pink Neck: JVD not distended Respiratory: Clear to auscultation bilaterally, Normal air movement Cardiovascular: No edema, Regular rate/rhythm, Normal S1 S2 Gastrointestinal: Normal bowel sounds, Soft and benign, Non-distended, No tenderness Musculoskeletal: No swelling Integumentary: No rashes, No cyanosis Neurological: Normal strength at 5/5 x4 extr Laboratory Data at Discharge: WBC 12.00 thou/uL (4.3-10.9) H 01/22/23 05:23 Hgb 11.5 g/dL (13.6-17.9) L 01/22/23 05:23 Hct 34.7 % (39.6-49.0) L 01/22/23 05:23 Plt Count 332 thou/uL (152-406) 01/22/23 05:23 PT 12.4 SECONDS (9.5-12.5) 01/20/23 18:17 INR 1.13 01/20/23 18:17 APTT 27.4 SECONDS (24.3-36.9) 01/20/23 18:17 Sodium 138 mEq/L (136-145) 01/22/23 05:23 Potassium 3.6 mEq/L (3.5-5.1) 01/22/23 05:23 BUN 16 mg/dL (7-18) 01/22/23 05:23 Creatinine 0.96 mg/dL (0.70-1.30) 01/22/23 05:23 Glucose 104 mg/dL (74-106) 01/22/23 05:23 Phosphorus 2.9 mg/dL (2.5-4.9) 01/21/23 05:50 Magnesium 2.0 mg/dL (1.6-2.4) 01/21/23 05:50 Total Bilirubin 0.5 mg/dL (0.2-1.0) 01/20/23 18:17 AST 10 U/L (15-37) L 01/20/23 18:17 ALT 17 U/L (16-61) 01/20/23 18:17 Alkaline Phosphatase 49 U/L (45-117) 01/20/23 18:17 Home Medications: Fenofibrate Nanocrystallized [Fenofibrate] 145 mg PO DAILY 06/06/18 Metformin HCl 1,000 mg PO DAILY 06/06/18 Hyoscyamine Sulfate 0.125 mg SL Q6H PRN 01/20/23 Multivitamin 1 each PO DAILY 01/20/23 Simvastatin 40 mg PO DAILY 01/20/23 Cefpodoxime Proxetil [Vantin] 200 mg PO BID #20 tab 01/22/23 Doxycycline Hyclate 100 mg PO BID #20 cap 01/22/23 New Medications: Doxycycline Hyclate 100 mg PO BID #20 cap Cefpodoxime Proxetil [Vantin] 200 mg PO BID #20 tab Diet: AHA Activity: Ad matt Followup: NONE,NONE [Primary Care Provider] - Time spent managing pt's care (in minutes): 36
--- NOTE | 2023-01-23 12:33 | EKG ---
Test Date: 2023-01-20 Test Time: 19:25:40 Lace Pinner: SELMA MEASUREMENT RESULTS: Intervals: Rate: 101 LA: 154 QRSD: 110 QT: 352 QTc: 456 [place]: P: 50 LA: 154 QRS: -58 T: 65 INTERPRETIVE STATEMENTS: Sinus tachycardia with fusion complexes Left anterior fascicular block No previous ECG available for comparison Electronically Signed On 01-23-23 12:27:48 CDT by Jone Archer
== END 2023-01-22 14:39 | disposition home or self-care (01) | DRG 698 ==
LOC: ER 17:17 → 2ND 19:57 → OBSVTOIN 21:03
PROVIDERS: ADMIT Internal Medicine; ATTEND Internal Medicine
DX: T83.511A Infection and inflammatory reaction due to indwelling urethral catheter, initial encounter (principal); A41.9 Sepsis, unspecified organism; N39.0 Urinary tract infection, site not specified; I10 Essential (primary) hypertension; E11.65 Type 2 diabetes mellitus with hyperglycemia; N20.0 Calculus of kidney; N32.9 Bladder disorder, unspecified; E78.5 Hyperlipidemia, unspecified; Z88.0 Allergy status to penicillin; Z85.46 Personal history of malignant neoplasm of prostate; Z90.79 Acquired absence of other genital organ(s); Z79.84 Long term (current) use of oral hypoglycemic drugs; Z79.899 Other long term (current) drug therapy; Z20.822 Contact with and (suspected) exposure to COVID-19
CPT/HCPCS: 0240U; 36415; 71045; 74176; 76377; 80048; 80053; 81001; 82947; 83605; 83735; 84100; 85025; 85610; 85730; 87040; 87070; 87081; 87086; 87088; 93005; 96361; 96365; 99285; G0378; J0696; J2185; J7030; J7120

== ENCOUNTER 2023-02-23 21:04 | Emergency (ER) | payer OTHER ==
--- OUTSIDE RECORDS SUMMARY | 2023-02-23 21:09 | XMS REPORT | Clinical Summary ---
:1960 [facility] Center Address [address] [place] [address] Care Team Providers Name Role Phone Ryan [...] TIME EACH DAY. (TRICOR) 145 mg tablet metFORMIN Take 2 tablets (1,000 0 02/23/2021 Active (GLUCOPHAGE-XR) 500 mg) by mouth daily mg 24 hr tablet with breakfast. simvastatin (ZOCOR) simvastatin 40 mg tablet 0 05/30 Active 40 mg tablet TAKE 1 TABLET BY MOUTH EVERY NIGHT aspirin 81 mg EC Take 1 tablet (81 mg) 0 Active tablet by mouth. multivitamin tab Take by mouth. 0 Active tablet acetaminophen Take 2 tablets (1,000 0 Active (TYLENOL) 500 mg mg) by mouth every 6 tabletIndications: (six) hours as needed pain for mild pain. capsaicin 0.025 % Apply 1 patch 0 Active ptmd topically 2 (two) times a day as needed. Saccharomyces Take 1 capsule (250 0 Active boulardii (FLORASTOR) mg) by mouth daily. 250 mg capsule Equate brand. morphine (MS Contin) Take 1 tablet (15 mg) 60 tablet 0 023 Active 15 mg ER by mouth every 12 tabletIndications: (twelve) hours. Chronic pain due to malignant neoplastic disease Additional Information Patient not taking. Reported on 02/23/2023 baclofen (LIORESAL) 10 Take 1 tablet (10 60 tablet 0 3 Active mg tabletIndications: mg) by mouth Ischial bursitis <Right every 6 (six) side> hours as needed for muscle spasms (pain). gabapentin (NEURONTIN) Take 1 capsule 60 capsule 0 02/23/2023 Active 300 mg (300 mg) by mouth capsuleIndications: twice daily. Ischial bursitis <Right side> HYDROmorphone Take 1 tablet (2 40 tablet 0 02/23/2023 Active (Dilaudid) 2 mg mg) by mouth tabletIndications: every 6 (six) Ischial bursitis <Right hours as needed side> for severe pain. levoFLOXacin (LEVAQUIN) levofloxacin 500 mg tablet 0 01/29 Discontinued 500 mg tablet TAKE 1 TABLET EVERY 24 HOUR S BY ORAL ROUTE DIRECTED FOR 10 DAYS. 03/18 (Therapy 23 completed) hyoscyamine (Levsin/SL) Place 1 tablet 30 tablet 11 01/16/202301/29 Discontinued 0.125 mg SL (0.125 mg) under 03/18 tabletIndications: Mass the tongue every 23 of urinary bladder 6 (six) hours as needed for cramping. levoFLOXacin (LEVAQUIN) Take 1 tablet 3 tablet 0 01/16/2023 0 01/29 Discontinued 500 mg (500 mg) by mouth 03/18 tabletIndications: Mass daily. Begin 23 of urinary bladder taking one day prior to scheduled procedure hyoscyamine (Levsin/SL) Place 1 tablet 30 tablet 2 01/31/202301/29 Discontinued 0.125 mg SL (0.125 mg) under 03/18 tabletIndications: Mass the tongue every 23 of urinary bladder 6 (six) hours as needed (bladder spasms). traMADol (Ultram) 50 mg Take 1 tablet (50 20 tablet 0 02/02/2001/29 Discontinued tabletIndications: Mass mg) by mouth 02/28 0 (Alternate of urinary bladder, every 6 (six) 23 therapy) Malignant neoplasm of hours as needed prostate for moderate pain. morphine (MS Contin) 15 Take 1 tablet (15 60 tablet 0 02/22/2001/29 Discontinued mg ER mg) by mouth 03/18 tabletIndications: every 12 (twelve) 23 Chronic pain due to hours. malignant neoplastic disease morphine (MSIR) 15 mg Take 0.5 tablets 60 tablet 0 02/21/202301/29 Discontinued IR tabletIndications: (7.5 mg) by mouth 03/18 Chronic pain due to every 8 (eight) 23 malignant neoplastic hours as needed disease for pain. morphine (MSIR) 15 mg Take HALF of a 45 tablet 0 02/21/2023 Discontinued IR tabletIndications: tablet (7.5 mg) (Therapy Chronic pain due to by mouth every 8 23 completed) malignant neoplastic (eight) hours as disease needed for pain. pregabalin (Lyrica) 25 Take 1 capsule 90 capsule 0 02/22/202301/29 Discontinued mg capsuleIndications: (25 mg) by mouth 05/18 (Side effects) Ischial bursitis <Right 3 (three) times a 23 side> day. 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 02/21/2023 Type 2 diabetes mellitus without complication 01/17/20 23 Mass of urinary bladder 01/10/2023 Malignant neoplasm of prostate 01/10/2023 Renal stone 01/10/2023 Diverticulitis of bladder 10/30/1989 Encounters Date Type Specialty Care Team Description 02/23/2023 Procedure visit Pain Medicine Geovanni Madden b kathleen Merrill MD <Right side> (P rimary Dx) 02/23/2023 Orders Only Radiology Deidre Condon PA 02/23/2023 Travel 02/22/2023 Infusion Infusion Services Yumi Sharif Papillar y transitional cell carcinoma of bladder neck (Primary Dx); ISAAC Primary urothelial carcinoma of overlapp ing sites of urinary organs Randa Gutiérrez, RN 02/22/2023 Hospital Encounter Pain Medicine Geovanni Maddenia l bursitis <Right side> (Primary Dx); MD Garfield Papillary trans itional cell carcinoma of bladder neck 02/22/2023 Travel 02/22/2023 Telephone Nutrition Brittany Virgen Nutrition Co nsultation DTR Appointment (PN S received. Spoke to patient who did not wish to schedul e at this time. My Nikko castro message sent wi th contact informa tion.) 02/22/2023 Orders Only Genitourinary Ernie Power, [facility] Oncology 02/22/2023 Orders Only Genitourinary Hanna French Oncology [place], [facility] 02/22/2023 Orders Only Urology Lori Awan, RN 02/21/2023 Hospital Encounter Lab Yumi Sharif, Papilla ry transitional PA cell carcinoma of bladder neck 02/21/2023 Consult Genitourinary Ryan Rivera, Papillary t ransitional cell carcinoma of bladder neck (Primary Dx); Oncology MD Chronic pain du e to malignant neoplastic disease; Primary urothel ial carcinoma of overlapping sites of urinary organs 02/21/2023 Orders Only Genitourinary Yumi Sharif, Papillary tr ansitional cell carcinoma of bladder neck (Primary Dx); Oncology PA Primary urothel ial carcinoma of overlapping sites of urinary organs 02/21/2023 Travel 02/10/2023 Hospital Encounter Radiology Tommy, Mass of u rinary Saba Tolentino, bladder PA Osvaldo Gunter MD 02/10/2023 Hospital Encounter Lab Robe Knapp, PA 02/10/2023 Travel 02/09/2023 Hospital Encounter Radiology Rasta Kramer MD Mass of urinary bladder (Primary Dx); PhD Malignant neoplasm of prostate; William Yeh, Cancer PA 02/09/2023 Orders Only Radiology William Yeh, PA 02/08/2023 Orders Only Radiology Ra Robe Vega, PA 02/08/2023 Education Radiology Carmen Negrete I MA 02/07/2023 Orders Only Urology Tommy, Papillary trans itional Saba Tolentino, cell carcino ma of PA bladder neck (P rimary Dx) 02/01/2023 Telephone Urology Yulisa Hayes MD 02/01/2023 Orders Only Urology Tommy, Mass of urinary bladder (Primary Dx); Saba Tolentino Malignant ne oplasm of prostate PA 02/01/2023 Orders Only UrologYulisa Pettit MD 01/31/2023 Anesthesia Event Ambulatory Surgery Carmela Choudhary MD Cata, Juan P., MD 01/31/2023 Surgery Ambulatory Surgery Rasta Kramer MD CYSTOUR ETHROSCOPY WITH PhD FULGURATION AND RESECTION OF BL ADDER TUMOR (TURBT) 01/31/2023 Hospital Encounter Ambulatory Surgery Rasta Kramer MD D iverticulitis of bladder (Primary Dx); PhD Mass of urinary bladder; Malignant neopl asm of prostate 01/31/2023 Orders Only Urology Paxton Sharif, Mass of urin quinton MD bladder (Primar y Dx) 01/31/2023 Travel 01/30/2023 POEM Appointments Anesthesiology Rasta Kramer MD PhD 01/27/2023 Clinical Support Rasta Santiago MD Suspected COVID-19 (Primary Dx); PhD Mass of urinary bladder Melani Leung MA 01/27/2023 Travel 01/26/2023 Orders Only Radiology Linda Singh PA 01/25/2023 Telephone Radiology Laine Nichols MA 2023 Orders Only Urology Tommy, Mass of urinary Saba Tolentino, bladder (Marifer latia Dx) PA 01/23/2023 Anesthesia Event Anesthesiology George Stuart RN 01/23/2023 POEM Appointments Anesthesiology Rasta Kramer MD PhD 01/20/2023 Ancillary Radiology Tommy Mass of urinary Procedure Sabaneri Tolentino, bladder PA 01/20/2023 Travel 01/16/2023 Ancillary Radiology Rasta Kramer MD Cancer Procedure PhD 01/16/2023 Ancillary Radiology Rasta Kramer MD Cancer Procedure PhD 01/16/2023 Ancillary Radiology Rasta Kramer MD Cancer Procedure PhD 01/16/2023 Ancillary Radiology Rasta Kramer MD Cancer Procedure PhD 01/16/2023 Ancillary Radiology Rasta Kramer MD Cancer Procedure PhD 01/16/2023 Ancillary Radiology Rasta Kramer MD Cancer Procedure PhD 01/16/2023 Ancillary Radiology Rasta Kramer MD Cancer Procedure PhD 01/16/2023 Ancillary Radiology Rasta Kramer MD Cancer Procedure PhD 01/16/2023 Ancillary Radiology Rasta Kramer MD Cancer Procedure PhD 01/16/2023 POEM Appointments Anesthesiology Rasta Kramer [...] Anesthesiology Randa Montes PA 01/13/2023 Telephone Geeta Templeton, Discharge Ca ll PA 01/13/2023 Telephone Genitourinary Barbie January, geothermal technician 01/12/2023 Emergency Emergency Medicine Jay Mathew Retention of urine (Primary Dx); MD Leon Mass of urinary bladder; Personal histor y of prostate cancer; Type 2 diabetes mellitus, not otherwise specified; Chronic kidney disease 01/12/2023 Travel 01/10/2023 Orders Only Urology Tommy, Mass of urinary Saba Randa, bladder (Marifer latia Dx) PA 01/10/2023 Orders Only Urology Tommy, Mass of urinary Saba Randa, bladder (Marifer latia Dx) PA 01/09/2023 Travel after 02/23/2022 Surgical History Surgery Date Site/Laterality Comments PROSTATE SURGERY 2006 Robotic Assiste d RP REPAIR OF INCARCERATED 10/30/2009 - Bilateral w/ mesh OR STRANGULATED INGUINAL 10/29/2010 HERNIA KNEE ARTHROSCOPY W/ Left No Hardware MENISCECTOMY CA CYSTO W/REMOVAL OF 01/31/2023 Genitalia/N/A Procedure: CYSTOURETHROSCOPY LESIONS SMALL WITH FULGURATION AND RESECTION OF ABEL DDER TUMOR (TURBT); Surgeon : Rasta Kramer MD PhD; Location : CALL OR; Service: UROLOGY Medical History Medical History Date Comments Mass of urinary bladder Malignant neoplasm of prostate Renal stone Hyperlipidemia 2009 Dependence on continuous positive airway pressure ventilatio n 2012 History of recurrent urinary tract infection 1984 Basal cell carcinoma of skin 2019 Diverticulitis of bladder 1989 Type 2 diabetes mellitus without complication Sleep apnea Family History Medical History Relation Name Comments Prostate cancer Father Phil Rubio Relation Name Status Comments Father Phil Rubio Social History Tobacco Use Types Packs/Day Years Used Date Smoking Tobacco: Former Cigarettes 0.5 10 03/0 10/1977 - 12/29/1987 Smokeless Tobacco: Former Snuff [...] in contact with No / Unsu re 02/23/2023 10:15 AM CDT someone who was confirmed or suspected to have Coronavirus/COVID-19? Obstetrics History Last Filed Vital Signs Vital Sign Reading Time Taken Comments Blood Pressure 96/59 02/23/2023 10:29 AM CDT Pulse 109 02/23/2023 10:29 AM CDT Temperature 36.6 C (97.9 F) 02/23/2023 10:29 AM CDT Respiratory Rate 18 02/23/2023 10:20 AM CDT Oxygen Saturation 96% 02/23/2023 10:20 AM CDT Inhaled Oxygen Concentration - - Weight 77.1 kg (169 lb 15.6 oz) 02/22/2023 3:00 PM CDT Height 172.7 cm (5' 7.99") 02/21/2023 10:45 AM CDT Body Mass Index 25.85 02/21/2023 10:45 AM CDT Plan of Treatment Date Type Specialty Care Team Description 02/24/2023 Hospital Encounter /GI Med Carmelo Meng MD [facility] [place] [address] 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 ELECTROLYTE PANEL Routine 02/21/2023 1:38 Papillary Results for this PM CDT transitional cell procedure are in carcinoma of the results bladder neck section. MANUAL DIFFERENTIAL Routine 02/21/2023 1:38 Papillary Resul ts for this PM CDT transitional cell procedure are in carcinoma of the results bladder neck section. Results CBC Routine 02/21/2023 1:38 Papillary Results for this PM CDT transitional cell procedure are in carcinoma of the results bladder neck section. FRACTIONATED BILIRUBIN Routine 02/21/2023 1:38 Papillary Re sults for this PM CDT transitional cell procedure are in carcinoma of the results bladder neck section. TOTAL PROTEIN Routine 02/21/2023 1:38 Papillary Results for this PM CDT transitional cell procedure are in carcinoma of the results bladder neck section. ASPARTATE Routine 02/21/2023 1:38 Papillary Results for this AMINOTRANSFERASE PM CDT transitional cell proced ure are in carcinoma of the results bladder neck section. ALANINE AMINOTRANSFERASE Routine 02/21/2023 1:38 Papillary Results for this PM CDT transitional cell procedure are in carcinoma of the results bladder neck section. ALKALINE PHOSPHATASE Routine 02/21/2023 1:38 Papillary Resu lts for this PM CDT transitional cell procedure are in carcinoma of the results bladder neck section. ALBUMIN LEVEL Routine 02/21/2023 1:38 Papillary Results for this PM CDT transitional cell procedure are in carcinoma of the results bladder neck section. CALCIUM LEVEL TOTAL Routine 02/21/2023 1:38 Papillary Resul ts for this PM CDT transitional cell procedure are in carcinoma of the results bladder neck section. .GLOMERULAR FILTRATION Routine 02/21/2023 1:38 Papillary Re sults for this RATE PM CDT transitional cell procedure are in carcinoma of the results bladder neck section. SERUM CREATININE Routine 02/21/2023 1:38 Papillary Results for this PM CDT transitional cell procedure are in carcinoma of the results bladder neck section. BLOOD UREA NITROGEN Routine 02/21/2023 1:38 Papillary Resul ts for this PM CDT transitional cell procedure are in carcinoma of the results bladder neck section. GLUCOSE LEVEL Routine 02/21/2023 1:38 Papillary Results for this PM CDT transitional cell procedure are in carcinoma of the results bladder neck section. MD MYERS BLOOD CONTROL Routine 02/21/2023 1:38 Papillary Resu lts for this PM CDT transitional cell procedure are in carcinoma of the results bladder neck section. CARCINOEMBRYONIC ANTIGEN Routine 02/21/2023 1:38 Papillary Results for this PM CDT transitional cell procedure are in carcinoma of the results bladder neck section. CANCER ANTIGEN 19-9 Routine 02/21/2023 1:38 Papillary Resul ts for this PM CDT transitional cell procedure are in carcinoma of the results bladder neck section. CANCER ANTIGEN 15-3 Routine 02/21/2023 1:38 Papillary Resul ts for this PM CDT transitional cell procedure are in carcinoma of the results bladder neck section. BHCG, TUMOR MARKER Routine 02/21/2023 1:38 Papillary Result s for this PM CDT transitional cell procedure are in carcinoma of the results bladder neck section. CANCER ANTIGEN 125 Routine 02/21/2023 1:38 Papillary Result s for this PM CDT transitional cell procedure are in carcinoma of the results bladder neck section. PHOSPHORUS LEVEL Routine 02/21/2023 1:38 Papillary Results for this PM CDT transitional cell procedure are in carcinoma of the results bladder neck section. MAGNESIUM LEVEL Routine 02/21/2023 1:38 Papillary Results f or this PM CDT transitional cell procedure are in carcinoma of the results bladder neck section. FREE THYROXINE Routine 02/21/2023 1:38 Papillary Results fo r this PM CDT transitional cell procedure are in carcinoma of the results bladder neck section. THYROID STIMULATING Routine 02/21/2023 1:38 Papillary Resul ts for this HORMONE PM CDT transitional cell procedure are in carcinoma of the results bladder neck section. COMPLETE BLOOD COUNT W/ Routine 02/21/2023 1:38 Papillary DIFFERENTIAL PM CDT transitional cell carcinoma of bladder neck COMPREHENSIVE METABOLIC Routine 02/21/2023 1:38 Papillary PANEL PM CDT transitional cell carcinoma of bladder neck IR CT GUIDED BIOPSY Routine 02/10/2023 1:18 Mass of urinary Re sults for this PELVIC NON-BONE 60 PM CDT bladder procedure are in the results section. BODY FLUID CULTURE Routine 02/10/2023 1:06 Result s for this PM CDT procedure are i n the results section. FUNGUS CULTURE W/ SMEAR Routine 02/10/2023 1:06 PM CDT ANAEROBIC CULTURE Routine 02/10/2023 1:06 Results for this PM CDT procedure are i n the results section. AFB CULTURE W/ SMEAR Routine 02/10/2023 1:06 PM CDT PATHOLOGY BIOPSY Routine 02/10/2023 12:46 Mass of urinary Resu lts for this INTERPRETATION PM CDT bladder procedure are in the results section. POC GLUCOSE SCREEN Routine 02/10/2023 12:18 Resul ts for this PM CDT procedure are i n the results section. PLATELET COUNT Routine 02/10/2023 11:21 Results f or this AM CDT procedure are i n the results section. PROTHROMBIN TIME Routine 02/10/2023 11:21 Results for this AM CDT procedure are i n the results section. POC GLUCOSE SCREEN Routine 01/31/2023 6:56 Result s for this PM CDT procedure are i n the results section. PATHOLOGY SURGICAL Routine 01/31/2023 6:01 Mass of urinary Res ults for this INTERPRETATION PM CDT bladder procedure are in the results section. CYSTOURETHROSCOPY WITH 01/31/2023 4:59 Mass of urinar y FULGURATION AND/OR PM CDT bladder TREATMENT OF MINOR LESION(S) (LESS THAN 0.5 CM) Special Needs Per Dr. Kramer swing room ok. S E@1:30P;CALL;2FM POC GLUCOSE SCREEN Routine 01/31/2023 4:21 PM Res ults for this CDT procedure are i n the results section. COVID-19 (SARS-COV-2) Routine 01/27/2023 9:36 AM Suspected Results for this PCR-ASYMPTOMATIC MC CDT COVID-19 procedur e are in the results section. CT CHEST ABDOMEN PELVIS W Routine 01/20/2023 11:33 Mass of uri nary Results for this WO CONTRAST UROGRAM AM CDT bladder procedur e are in the results section. COVID-19 (SARS-COV-2) Routine 01/16/2023 9:20 AM Suspected Results for this PCR-ASYMPTOMATIC MC CDT COVID-19 procedur e are in the results section. URINALYSIS MICROSCOPIC Routine 01/12/2023 4:35 PM Results for this EXAM CDT procedure are i n the results section. URINALYSIS WITH Routine 01/12/2023 4:35 PM Result s for this MICROSCOPIC IF INDICATED CDT pro cedure are in the results section. URINE CULTURE Routine 01/12/2023 4:35 PM Results for this CDT procedure are i n the results section. FRACTIONATED BILIRUBIN Routine 01/12/2023 4:19 PM Results for this CDT procedure are i n the results section. TOTAL PROTEIN Routine 01/12/2023 4:19 PM Results for this CDT procedure are i n the results section. ASPARTATE Routine 01/12/2023 4:19 PM Results f or this AMINOTRANSFERASE CDT procedure a re in the results section. ALANINE AMINOTRANSFERASE Routine 01/12/2023 4:19 PM Results for this CDT procedure are i n the results section. ALKALINE PHOSPHATASE Routine 01/12/2023 4:19 PM R esults for this CDT procedure are i n the results section. ALBUMIN LEVEL Routine 01/12/2023 4:19 PM Results for this CDT procedure are i n the results section. CALCIUM LEVEL TOTAL Routine 01/12/2023 4:19 PM Re sults for this CDT procedure are i n the results section. .GLOMERULAR FILTRATION Routine 01/12/2023 4:19 PM Results for this RATE CDT procedure are i n the results section. SERUM CREATININE Routine 01/12/2023 4:19 PM Resul ts for this CDT procedure are i n the results section. ELECTROLYTE PANEL Routine 01/12/2023 4:19 PM Resu lts for this CDT procedure are i n the results section. BLOOD UREA NITROGEN Routine 01/12/2023 4:19 PM Re sults for this CDT procedure are i n the results section. GLUCOSE LEVEL Routine 01/12/2023 4:19 PM Results for this CDT procedure are i n the results section. MANUAL DIFFERENTIAL STAT 01/12/2023 4:19 PM Re sults for this CDT procedure are i n the results section. Results CBC STAT 01/12/2023 4:19 PM Results f or this CDT procedure are i n the results section. APTT Routine 01/12/2023 4:19 PM Results f or this CDT procedure are i n the results section. PROTHROMBIN TIME Routine 01/12/2023 4:19 PM Resul ts for this CDT procedure are i n the results section. PHOSPHORUS LEVEL Routine 01/12/2023 4:19 PM Resul ts for this CDT procedure are i n the results section. MAGNESIUM LEVEL Routine 01/12/2023 4:19 PM Result s for this CDT procedure are i n the results section. COMPREHENSIVE METABOLIC Routine 01/12/2023 4:19 PM PANEL CDT COMPLETE BLOOD COUNT W/ Routine 01/12/2023 4:[address]ENTIAL CDT OSI CT ABDOMEN AND PELVIS Routine 12/14/2022 11:44 Cancer Results for this PM MAXILLOFACIAL PROSTHODONTIST procedure are i n the results section. after 02/23/2022 Results Pain Management Ultrasound (02/23/2023 10:25 AM CDT) Specimen (Source) Anatomical Location Collection Method / Collectio n Time Received Time / Laterality Volume Narrative Systemgenerated, Documentation - 023 10:25 AM CDT This procedure requires no interpretatio n from the radiologist. Geovanni Madden MD IMG NON DI ORDERABLES (ABNORMAL) BHCG, Tumor Marker (02/21/2023 1:38 PM CDT) athologist Signature Beta HCG, 40.6 (H) <=0.9 [facility] Tumor Marker mIU/mL Comment: Tumor Markers [facility] Reference Range: Negative: <1.0 mIU/mL Non- pre-menopausal women: </= 1 .0 mIU/mL Post-menopausal women: </= 7.0 mIU/mL Men: < 2.0 mIU/mL Testing Performed at [facility], [address] [place] [address], [address], [place] [address] Specimen Anatomical Collection Method Collection Time Receive d Time (Source) Location / / Volume Laterality Blood 02/21/2023 1:38 PM 1:54 CDT PM CDT [facility] BLOOD ORDERABLES Performing Organization Address City/State/ZIP Code Phon e Number [address] [place] [address] [address] .Serum Creatinine (02/21/2023 1:38 PM CDT)Only the most recent of2 resultswithin the time period is included. athologist Signature Creatinine 0.87 0.67 - 1.17 [facility] mg/dL Comment: Testing Performed at [facility] Lab Am Merged with [facility], [address] [place], [place] [address], [address], [place] [address] Specimen Anatomical Collection Method Collection Time Receive d Time (Source) Location / / Volume Laterality Blood 02/21/2023 1:38 PM 3 1:54 CDT PM CDT [facility] BLOOD ORDERABLES Performing Organization Address City/[facility]/ZIP Code Phon e Number [facility] [address] [place] [address]. [place] [address] [address] NGS Blood Control (02/21/2023 1:38 PM CDT) [facility] Molecular Yes [facility] Diagnostics CANCER CENTER (Received) Specimen Anatomical Collection Method Collection Time Receive d Time (Source) Location / / Volume Laterality Blood 02/21/2023 1:38 PM 3 3:36 CDT PM CDT Yumi GRAY MDA IP HP MOLECULAR DIAG IF ORDERABLES Performing Organization Address City/[facility]/ZIP Code Phon e Number [facility] CANCER Unless otherwise noted, [place] [address] CENTER all lab tests performed by: Division of Pathology and Laboratory Medicine [address] [place] [address] [place] (ABNORMAL) .CBC (02/21/2023 1:38 PM CDT)Only the most recent of2 resultswithin the time period is included. athologist Signature WBC 31.5 (H) 4.0 - 11.0 [facility] K/uL RBC 4.55 4.50 - 6.00 [facility] M/uL Hgb 12.5 (L) 14.0 - 18.0 [facility] gm/dL Comment: As part of CBC or as an individ ual orderable testing performed at [facility] [employer] Super[employer] [facility], [address] [place] [address] , [address], [place] [address] Hct 39.5 (L) 40.0 - 54.0 % [facility] Comment: As part of CBC or as an individ ual orderable testing performed at [facility] Lab [employer] Supervisor [facility], [address] [place] [address] , [address], [place] [address] MCV 87 82 - 98 fL [facility] MCH 27.5 27.0 - 31.0 pg [facility] MCHC 31.6 31.0 - 36.0 gm/dL [facility] RDW-SD 42.1 35.1 - 46.3 fL [facility] RDW-CV 13.4 12.0 - 15.5 % [facility] Platelet count 605 (H) 140 - 440 K/uL [facility] Comment: As part of CBC or as an individ ual orderable testing performed at [facility], [address] [place] [address] , [address], [place] [address] MPV 9.3 4.0 - 10.4 fL [facility] [facility] INRBC 0.0 <=0.0 % [facility] Comment: The INRBC (instrument NRBC) value reflec ts the enumeration of nucleated red blood cells contained i n a 200uL sample of whole blood analyzed by the instrumen t. This value may differ from the NRBC value reported in a manual differential, which is based on a 100 cell differentia l. As part of CBC testing performed at [address], [address], [place] [address] Specimen Anatomical Collection Method Collection Time Receive d Time (Source) Location / / Volume Laterality Blood 02/21/2023 1:38 PM 3 1:41 CDT PM CDT [facility] LAB BLOOD ORDERABLES Performing Organization Address City/State/ZIP Code Phon e Number [address] [place] [address] [address] Glomerular Filtration Rate (02/21/2023 1:38 PM CDT)Only the most recent of2 resultswithin the time period is included. athologist Signature eGFR 97 >=60 [facility] mL/min/1.73 sq. m Comment: The eGFRcr is calculated [...] G1 nor G2 fulfill criteria for CKD. Testing Performed at [facility], [address] [place] [address], [address], [place] [address] Specimen Anatomical Collection Method Collection Time Receive d Time (Source) Location / / Volume Laterality Blood 02/21/2023 1:38 PM 3 1:54 CDT PM CDT [facility] LAB BLOOD ORDERABLES Performing Organization Address City/State/ZIP Code Phon e Number [address] [place] [address] [address] Fractionated Bilirubin (02/21/2023 1:38 PM CDT)Only the most recent of2 results within the time period is included. athologist Signature Bili Total 0.4 <=1.2 mg/dL [facility] Comment: Indocyanine Green (ICG) may cause falsel y elevated bilirubin results. Total and direct bilirubin must not be measured from samples containing indocyanine green. False elevation of total bilirubin can b e seen in patients with IgG concentrations above 28 g/L. Testing Performed at [facility], [address] [place] [address], [address], [place] [address] Bili Direct 0.2 <=0.3 mg/dL [facility] Comment: Indocyanine Green (ICG) may cause falsel y elevated bilirubin results. Total and direct bilirubin must not be measured from samples containing indocyanine green. Testing Performed at [facility], [address] [place] [address], [address], [place] [address] Bili Indirect 0.2 0.0 - 0.9 mg/dL [facility] Comment: Testing Performed at [facility] Lab bulatory [facility], [address] [facility], [address], [place] [address] Specimen Anatomical Collection Method Collection Time Receive d Time (Source) Location / / Volume Laterality Blood 02/21/2023 1:38 PM 3 1:54 CDT PM CDT [facility] LAB BLOOD ORDERABLES Performing Organization Address City/[facility] Phon e Number [address] [place] [address] [address] CA 19-9 (02/21/2023 1:38 PM CDT) athologist Signature CA 19-9 3.6 <=35.0 U/mL [facility] Comment: Results greater than 9500 U/mL may not b e reliable due to matrix effect with extended dilution as it exceeds the tin can laborer's recommended limit. Caution should be exercised when interpreting such valu es and done in conjunction with clinical context. This test is measured by electrochemilum inescence immunoassay on Charanjit Natacha immunoassay analyzers. Results obtained in different methods are not interchangeable. Testing Performed at [facility], [address] [place] [address], [address], [place] [address] Specimen Anatomical Collection Method Collection Time Receive d Time (Source) Location / / Volume Laterality Blood 02/21/2023 1:38 PM 3 1:54 CDT PM CDT [facility] LAB BLOOD ORDERABLES Performing Organization Address [facility] e Number [address] [place] [address] [address] CA 15-3 (02/21/2023 1:38 PM CDT) athologist Signature CA 15-3 10.2 <=25.0 U/mL [facility] Comment: Results greater than 2400.0 U/mL may not be reliable due to matrix effect with extended dilution as it exceeds the tin can laborer's recommended limit. Caution should be exercised when interpreting such va lues and done in conjunction with clinic al context. This test is measured by electrochemilum inescence immunoassay on Charanjit Natacha immunoassay analyzers. Results obtained in different methods are not interchangeable. Testing Performed at [facility], [address] [place] [address], [address], [place] [address] Specimen Anatomical Collection Method Collection Time Receive d Time (Source) Location / / Volume Laterality Blood 02/21/2023 1:38 PM 3 1:54 CDT PM CDT [facility] LAB BLOOD ORDERABLES Performing Organization Address City/State/ZIP Code Phon e Number [facility] [address] [place] [address]. [place] [address] [address] (ABNORMAL) Differential (02/21/2023 1:38 PM CDT)Only the most recent of2 results within the time period is included. P athologist Signature Neutrophil % 73.4 (H) 42.0 - [facility] 66.0 % Comment: As part of Differential perform ed at [facility], [address] [place] [address], [address], [place] [address] Lymphocyte % 7.2 (L) 24.0 - 44.0 % [facility] Monocyte % 6.8 2.0 - 7.0 % [facility] Eosinophil % 11.4 (H) 1.0 - 4.0 % [facility] Basophil % 0.4 0.0 - 1.0 % [facility] IGRE % 0.8 (H) 0.0 - 0.4 % [facility] Comment: IGRE % count includes Metamyelocytes, My elocytes, and Promyelocytes. As part of Differential performed at [facility], [facility] [facility], [address], [place] [address] Neutrophil Abs 23.08 (H) 1.70 - 7.30 K/uL [facility] Lymphocyte Abs 2.26 1.00 - 4.80 K/uL [facility] Monocyte Abs 2.15 (H) 0.08 - 0.70 K/uL [facility] Eosinophil Abs 3.60 (H) 0.04 - 0.40 K/uL [facility] Basophil Abs 0.13 (H) 0.00 - 0.10 K/uL [facility] IG Abs 0.26 (H) 0.00 - 0.04 K/uL [facility] Specimen Anatomical Collection Method Collection Time Receive d Time (Source) Location / / Volume Laterality Blood 02/21/2023 1:38 PM 1:41 CDT PM CDT [facility] LAB BLOOD ORDERABLES Performing Organization Address City/[facility]/ZIP Code Phon e Number [facility] [address] [place] [address]. [place] [address] [address] CA 125 (02/21/2023 1:38 PM CDT) athologist Signature CA 125 15.6 U/mL [facility] Comment: Results greater than 11,500.0 U/mL may n ot be reliable due to matrix effect with extended dilution as it exceeds the tin can laborer's recommended limit. Caution should be exercised when interpreting such values and done in conjunction with clinical context. Reference intervals are not available fo r male patients. Results should be interpreted in conjunction with clinical context. This test is measured by electrochemilum inescence immunoassay on Charanjit Natacha immunoassay analyzers. Results obtained in different methods are not interchangeable. Testing Performed at [facility], [address] [place] [address], [address], [place] [address] Specimen Anatomical Collection Method Collection Time Receive d Time (Source) Location / / Volume Laterality Blood 02/21/2023 1:38 PM 3 1:54 CDT PM CDT [facility] LAB BLOOD ORDERABLES Performing Organization Address City/[facility]/ZIP Code Phon e Number [address] [place] [address] [address] BUN (02/21/2023 1:38 PM CDT)Only the most recent of2 resultswithin the time period is included. athologist [facility] BUN 20 6 - 23 mg/dL [facility] Comment: Testing Performed at [facility], [address] [place] [address], [address], [place] [address] Specimen Anatomical Collection Method Collection Time Receive d Time (Source) Location / / Volume Laterality Blood 02/21/2023 1:38 PM 3 1:54 CDT PM CDT [employer] [place] LAB BLOOD ORDERABLES Performing Organization Address City/[facility]/ZIP [facility] Phon e Number [facility] [address] [place] [address]. [place] [address] [address] ALT (02/21/2023 1:38 PM CDT)Only the most recent of2 resultswithin the time period is included. athologist [facility] ALT 20 <=41 U/L [facility] Comment: Testing Performed at [facility] Lab [facility], [address] [place] [address], [address], [place] [address] Specimen Anatomical Collection Method Collection Time Receive d Time (Source) Location / / Volume Laterality Blood 02/21/2023 1:38 PM 3 1:54 CDT PM CDT Yumi Kole PA LAB BLOOD ORDERABLES Performing Organization Address City/[facility]/ZIP Code Phon e Number [facility] [address] [place] [address]. [place] [address] [address] Aspartate Aminotransferase (02/21/2023 1:38 PM CDT)Only the most recent of2 resultswithin the time period is included. athologist Signature AST 12 <=40 U/L [facility] Comment: Testing Performed at B [facility] Am [facility] Care [facility], [address] [place] [address], [address], [place] [address] Specimen Anatomical Collection Method Collection Time Receive d Time (Source) Location / / Volume Laterality Blood 02/21/2023 1:38 PM 3 1:54 CDT PM CDT [facility] LAB BLOOD ORDERABLES Performing Organization Address [facility]/ZIP Code Phon e Number [facility] [address] [place] [address]. [place] [address] [address] TSH (02/21/2023 1:38 PM CDT) athologist [facility] TSH 0.61 0.27 - 4.20 [facility] mcunit/mL Comment: Note: New Methodology and Reference Ra nge change effective 02/15/2018 at 1400 Testing Performed at [facility], [address] [place] [address], [address], [place] [address] Specimen Anatomical Collection Method Collection Time Receive d Time (Source) Location / / Volume Laterality Blood 02/21/2023 1:38 02/21/2023 1:54 PM CDT PM CDT [employer] PA LAB BLOOD ORDERABLES Performing Organization Address [facility]/ZIP Code Phon e Number [facility] [address] [facility] [place] [address] [address] Free T4 (02/21/2023 1:38 PM CDT) athologist [facility] T4 Free 1.44 0.93 - 1.70 [facility] ng/dL Comment: Testing Performed at [facility], [address] [facility], [address], [place] [address] Specimen Anatomical Collection Method Collection Time Receive d Time (Source) Location / / Volume Laterality Blood 02/21/2023 1:38 PM 3 1:54 CDT PM CDT [facility] LAB BLOOD ORDERABLES Performing Organization Address City/[facility]/ZIP Code Phon e Number [facility] [address] [facility] [place] [address] [address] Total Protein (02/21/2023 1:38 PM CDT)Only the most recent of2 resultswithin the time period is included. P athologist Signature Total Protein 7.1 6.4 - 8.3 [facility] g/dL Comment: Testing Performed at [facility], [address] [facility], [address], [place] [address] Specimen Anatomical Collection Method Collection Time Receive d Time (Source) Location / / Volume Laterality Blood 02/21/2023 1:38 PM 3 1:54 CDT PM CDT [facility] LAB BLOOD ORDERABLES Performing Organization Address [facility] Phon e Number [facility] [address] [facility] [place] [address] [address] Phosphorus Level (02/21/2023 1:38 PM CDT)Only the most recent of2 resultswithin the time period is included. P athologist Signature Phosphorus 3.2 2.5 - 4.5 [facility] mg/dL Comment: Testing Performed at [facility], [address] [facility], [address], [place] [address] Specimen Anatomical Collection Method Collection Time Receive d Time (Source) Location / / Volume Laterality Blood 02/21/2023 1:38 PM 3 1:54 CDT PM CDT Yumi Sharif PA LAB BLOOD ORDERABLES Performing Organization Address City/[facility]/ZIP Code Phon e Number [facility] [address] [facility] [place] [address] [address] Alkaline Phosphatase (02/21/2023 1:38 PM CDT)Only the most recent of2 results within the time period is included. athologist Signature Alk Phos 62 40 - 129 U/L [facility] Comment: Testing Performed at [facility] Lab [facility], [address] [facility], [address], [place] [address] Specimen Anatomical Collection Method Collection Time Receive d Time (Source) Location / / Volume Laterality Blood 02/21/2023 1:38 PM 3 1:54 CDT PM CDT [facility] LAB BLOOD ORDERABLES Performing Organization Address City/[facility] e Number [facility] [address] [facility] [place] [address] [address] Magnesium Level (02/21/2023 1:38 PM CDT)Only the most recent of2 resultswithin the time period is included. athologist Signature Magnesium 1.9 1.6 - 2.6 [facility] mg/dL Comment: Testing Performed at [facility] Lab [facility], [address] [facility], [address], [place] [address] Specimen Anatomical Collection Method Collection Time Receive d Time (Source) Location / / Volume Laterality Blood 02/21/2023 1:38 PM 3 1:54 CDT PM CDT [facility] Sharif [place] LAB BLOOD ORDERABLES Performing Organization Address City/[facility] e Number [facility] [address] [facility] [place] [address] [address] (ABNORMAL) Glucose Level (02/21/2023 1:38 PM CDT)Only the most recent of2 resultswithin the time period is included. athologist Signature Glucose Level 136 (H) 70 - 99 [facility] mg/dL Comment: Effective 05/25/16, the glucose reference intervals have been updated based on [place] [employer] guidelines (Standards of Medical Care in Diabetes 2016. Diabetes Care 2016; 39: S13-S22). Fasting blood glucose: Normal: 70-99 mg/dL Impaired fasting glucose (increased risk for diabetes or pre-diabetes): 100- 125 mg/dL Diabetes mellitus: >/=126 mg/dL Random blood glucose: Normal: 70-199 mg/dL Note: Random glucose >100 mg/dL is assoc iated with increased risk for diabetes Testing Performed at [facility], [address] [place] [address], [address], [place] [address] Specimen Anatomical Collection Method Collection Time Receive d Time (Source) Location / / Volume Laterality Blood 02/21/2023 1:38 PM 3 1:54 CDT PM CDT [facility] LAB BLOOD ORDERABLES Performing Organization Address [facility]/[address] [place] [address] [address] CEA (02/21/2023 1:38 PM CDT) athologist Signature CEA 2.3 <=3.8 ng/mL [facility] Comment: Reference Ranges: Smoker: 0.0 - 5.5 Non-Smoker: 0.0 - 3.8 This test is measured by electrochemilum inescence immunoassay on Charanjit Natacha immunoassay analyzers. Results obtained in different methods are not interchangeable. Testing Performed at [facility], [address] [place] [address], [address], [place] [address] Specimen Anatomical Collection Method Collection Time Receive d Time (Source) Location / / Volume Laterality Blood 02/21/2023 1:38 PM 3 1:54 CDT PM CDT [facility] LAB BLOOD ORDERABLES Performing Organization Address [facility]/[address] [place] [address] [address] (ABNORMAL) Calcium Level (02/21/2023 1:38 PM CDT)Only the most recent of2 resultswithin the time period is included. athologist Signature Calcium Lvl 11.0 (H) 8.4 - 10.2 [facility] mg/dL Comment: Testing Performed at [facility] Lab [facility], [address] [place] [address], [address], [place] [address] Specimen Anatomical Collection Method Collection Time Receive d Time (Source) Location / / Volume Laterality Blood 02/21/2023 1:38 PM 3 1:54 CDT PM CDT Yumi Kole PA LAB BLOOD ORDERABLES Performing Organization Address City/State/ZIP Code Phon e Number [facility] [address] [place] [address] [address] (ABNORMAL) Albumin Level (02/21/2023 1:38 PM CDT)Only the most recent of2 resultswithin the time period is included. P athologist Signature Albumin Lvl 3.4 (L) 3.5 - 5.2 [facility] gm/dL Comment: Testing Performed at [facility] Care [facility], [address], [address], [place] [address] Specimen Anatomical Collection Method Collection Time Receive d Time (Source) Location / / Volume Laterality Blood 02/21/2023 1:38 PM 1:54 CDT PM CDT [facility] LAB BLOOD ORDERABLES Performing Organization Address City/[facility] Phon e Number [facility] [address] [place] [address] [address] Electrolyte Panel (02/21/2023 1:38 PM CDT)Only the most recent of2 resultswithin the time period is included. P athologist Signature Sodium Lvl 139 136 - 145 [facility] mEq/L Comment: Testing Performed at [facility] Lab Am bulatory Care [facility], [address], [address], [place] [address] Potassium Lvl 3.6 3.5 - 5.1 mEq/L [facility] Comment: Testing Performed at [facility] Lab Am [facility] Care [facility], [address], [address], [place] [address] Chloride 100 98 - 107 mEq/L [facility] Comment: Testing Performed at [facility], [address], [address], [place] [address] CO2 27 22 - 29 mEq/L [facility] Comment: Testing Performed at [facility], [address], [address], [place] [address] Anion Gap 12 4 - 14 mEq/L [facility] Comment: Testing Performed at [facility] Lab [facility], [address], [address], [place] [address] Specimen Anatomical Collection Method Collection Time Receive d Time (Source) Location / / Volume Laterality Blood 02/21/2023 1:38 PM 3 1:54 CDT PM CDT [facility] LAB BLOOD ORDERABLES Performing Organization Address City/State/ZIP Code Phon e Number [facility] [address] [facility] [place] [address] [address] GUIDED BIOPSY PELVIC NON-BONE (02/10/2023 1:18 PM CDT) Anatomical Region Laterality Modality Abdomen/Pelvis Computed Tomography Specimen (Source) Anatomical Location Collection Method / Collectio n Time Received Time / Laterality Volume Narrative 02/10/2023 2:39 PM CDT Table formatting from the original result was not included. Date of Procedure: 02/10/23 Attending Physician: Osvaldo Gunter Engraver Tender: Janet Rosales Pre Procedure Diagnosis: Mass of urina ry bladder Post Procedure Diagnosis: Unchanged Indication: Enlarging mass / nodule fo r tissue diagnosis Protocol Number: N/A Title of Procedure: Percutaneous Computed Tomography-Guided Biopsy Operative Findings: Percutaneous image-guided biopsy of 3 cm right pelvic mass. Consent: The procedure, risks, indicat ions and alternatives were explained. All questions were answered a nd informed consent was obtained. I have reviewed the history and physical dictated by the mid-level practitioner / fellow. Sedation/Anesthesia: Moderate sedation for pain control and a nxiety was administered by a dedicated nurse under my supervision. There was continuous monitoring of oxygen saturation, heart rate and interm ittent monitoring of blood pressure during the procedure. Medicat ion given was midazolam and fentanyl. I was present for the admin istration of the medications indicated above. Procedure Events Event Event Time Sedation Start 02/10/2023 12:50 PM Sedation End 02/10/2023 1:06 PM Procedure in Detail: A time out was performed prior to the st art of the procedure and the correct patient, procedure, presence of consent, site, and side were confirmed with all members of the team. With the patient in the supine position, the skin overlying the area of interest was prepped and draped in the u sual sterile fashion. Lidocaine 1% was used for local anesthesia. Using an anterior approach under Compute d Tomography image-guidance, a 17 gauge needle was advanced down to the ri t pelvic mass. An image was obtained and placed into the medical rec ord. Samples were obtained for evaluation. Sampling: Core Biopsy: An 18 gauge needle use d to obtain samples for surgical pathology evaluation. Total number of samples: 3. However, sampling was limited due to fluid within lesion/ natu re of lesion. Multiple areas were sampled. Specimens Disposition: Diagnostic Biopsy: The biopsy sampl es were submitted to pathology. Microbiology samples: Additional sa mples were obtained and submitted for microbiologic evaluation. Additional Comments: Lesion appeared l arger on imaging, mostly hypodense consistent with fluid collection. 3 cc o f murky fluid aspirated from lesion. Estimated Blood Loss: Minimal Immediate Complications: None Disposition: PACU Plan: 1. No follow-up with Interventional Radi ology required. This draft note was prepared by the TARI involved in the case; it was then reviewed and finalized by the attending physician. I certify my physical presence in the pr ocedure/control room at the time of the procedure. I personally reviewed the image(s) and the TARI's interpretation and agree with the ender salazar report. [facility] IR ORDERABLES Body Fluid Culture (02/10/2023 1:06 PM CDT) Patholo gist Method Time Signature Final Report No growth [facility] Gram Stain Many WBC's seen AL Report No organisms seen. [facility] Specimen Anatomical Collection Method Collection Time Receive d Time (Source) Location / / Volume Laterality Body Fl (Joint, 02/10/2023 1:06 PM 2022 3:54 Hip, Right) CDT PM CDT Osvaldo Gunter MD MICROBIOLOGY - GENERAL ORDER [facility]ANE Performing Organization Address City/State/ZIP Code Phon e Number [facility] Unless otherwise noted, [place] [address] [place] all lab tests performed by: Division of Pathology and Laboratory Medicine [id number] Anaerobic Culture (02/10/2023 1:06 PM CDT) P athologist Signature Final Report No growth [facility] Specimen Anatomical Collection Method Collection Time Receive d Time (Source) Location / / Volume Laterality Body Fl (Joint, 02/10/2023 1:06 PM 2022 3:54 Hip, Right) CDT PM CDT Narrative [facility] - 3 12:15 PM CDT Label Only Arrived with specimen [id number] 02/10/2023 2:00:24 PM CDT Processed in Micro 02/10/2023 3:51:48 PM CDT Osvaldo Gunter MD MICROBIOLOGY - GENERAL ORDER [place] Performing Organization Address City/[facility]/ZIP Code Phon e Number [facility] Unless otherwise noted, [place] [address] CENTER all lab tests performed by: Division of Pathology and Laboratory Medicine [id number] Pathology Biopsy Interpretation (02/10/2023 12:46 PM CDT) Component Value Ref Test Analysis Performed Pathologis t Range Method Time At Signature Submitted Mass of urinary 02/13/2023 [facility] Clinical bladder [N32.89] 10:14 AM History CDT Diagnosis A: Pelvic sidewall, right, biopsy: 02/13 [facility] [facility] Electronically METASTATIC UROTHELIAL CARCINOMA. 10:14 A M signed by Scant lymphoid tissue and fragments of skeletal muscle prese nt. CDT Kendell Zuñiga MD on 02/13 at 10:14 A M [email or web address] Gross A: 02/13/2023 [facility] Description Pelvic sidewall, right, biop sy : 4 soft, friable, acuña-white tissue cores, 0.2 cm - 0.5 cm in length and 0.1 cm in diameter, entirely submitted in A1. ET 10:14 AM CDT Biomarker Metastatic tumor 02/13/2023 [facility] Block(s) block:A1 10:14 AM CDT Disclaimer "Some tests 02/13/2023 [facility] reported here may 10:14 AM have been CDT developed and performance characteristics determined by [facility] Pathology and Laboratory Medicine. These tests have not been specifically cleared or approved by the U.S. Food and Drug Administration. If applicable, controls were reviewed and showed appropriate reactivity." Specimen Anatomical Collection Method Collection Time Receive d Time (Source) Location / / Volume Laterality Tissue (Pelvic 02/10/2023 12:46 3 1:51 Sidewall, Right) PM CDT PM CDT Saba GRAY LAB PATHOLOGY ORDERABLES Performing Organization Address City/[facility] Code Phon e Number [facility] [address] [address] [facility] (ABNORMAL) POC Glucose Screen (02/10/2023 12:18 PM CDT)Only the most recent of3 resultswithin the time period is included. athologist [facility] POC Glucose 109 (H) 70 - 99 POC TELCOR mg/dL Comment: Capillary blood samples, e.g. obtained b y fingerstick, may have inaccurate results in patients with decreased peripheral blood flow. All POC Glucose screen test results, inc luding critical values, must be interpreted and evaluated in the context of the patients clinical findings. It is recommended to confirm any questionable test results by core lab methodology. Method description: All results are edd ured using Electrochemistry test methodology. The glucose in the sample mixes with the reagents on the test strip. The reaction produces an electric current. The amount of current produced is proportion al to the glucose concentration in the blood. PO Sample Type Capillary POC TELCOR Performing Lab [facility] POC TELCO R Comment: [facility], [address] [place] [address], [place] [address]; Lab Direct or: Elena Lopez MD; Waived Point of Care Testing - Fior Oviedo MD Specimen Anatomical Collection Method Collection Time Receive d Time (Source) Location / / Volume Laterality Blood 02/10/2023 12:18 02/10/2023 PM CDT 12:18 PM CDT Saba GRAY POCT ORDERABLES - DEVICE Performing Organization Address City/State/ZIP Code Phon e Number POC TELCOR Unless otherwise noted, [place] [address] lab tests performed by: Division of Pathology and Laboratory Medicine [address] [place] [address] (ABNORMAL) Prothrombin Time with INR (02/10/2023 11:21 AM CDT)Only the most recent of2 resultswithin the time period is included. athologist [facility] PT 14.2 (H) 11.9 - 14.1 [facility] second(s) Comment: Result confirmed by repeat analysis Testing Performed at [facility] Lab Fish Hatchery Supervisor [address] [facility] [place] [address] INR 1.14 (H) 0.89 - 1.10 [facility] Comment: Result confirmed by repeat analysis Testing Performed at [facility] Lab Fish Hatchery Supervisor [facility] [address] [place] [address], [address] [place] [address] Specimen Anatomical Collection Method Collection Time Receive d Time (Source) Location / / Volume Laterality Blood 02/10/2023 11:21 02/10/2023 AM CDT 11:26 AM CDT Narrative [facility] - 02/10/2023 12:12 PM CDT This lab cannot be scheduled at the [facility] locations due to collection/proccessing restrictions: [facility] and [facility]. [facility] LAB BLOOD ORDERABLES Performing Organization Address City/[facility]/ZIP Code Phon e Number [facility] [address] [place] [address]. [place] [address] [address] (ABNORMAL) Plt Count (02/10/2023 11:21 AM CDT) P athologist Signature Platelet count 478 (H) 140 - 440 [facility] K/uL Comment: As part of CBC or as an individ ual orderable testing performed at [facility] Fish Hatchery Supervisor [facility], [address] [facility] , [address], [place] [address] MPV 9.0 4.0 - 10.4 fL [facility] Specimen Anatomical Collection Method Collection Time Receive d Time (Source) Location / / Volume Laterality Blood 02/10/2023 11:21 02/10/2023 AM CDT 11:26 AM CDT [facility] LAB BLOOD ORDERABLES Performing Organization Address City/[facility]/ZIP Code Phon e Number [facility] [address] [place] [address]. [place] [address] [address] Pathology Surgical Interpretation (01/31/2023 6:01 PM CDT) Component Value Ref Test Analysis Performed Pathologis t Range Method Time At Signature Submitted Mass of urinary 02/03/2023 [facility] Clinical bladder [N32.89] 3:15 PM History CDT Diagnosis A: Urinary bladder, bladder tumour: 04/2023 [facility] Electronically PAPILLARY UROTHELIAL CARCINOMA, HIGH GRADE, INVA SIVE INTO MUSCULARIS PROPRIA. 3:15 PM signed by UROTHELIAL CARCINOMA IN SITU. CDT Pheroze Tamboli, Lymphovascular invasion is not identified. on 02/03/2023 at 3:15 PM PXT/FQY Gross A: 02/03/2023 [facility] Description Urinary bladder, bladder leti or: Multiple acuña-brown, granular, rubbery tissue fragments measuring 6 x 4.5 x 1.4 cm in aggregate and weighing approximately 14 grams, guest experience representative sections are submitted in A1-A7. ET 3:15 PM CDT Biomarker Tumor: A3 02/03/2023 [facility] Block(s) 3:15 PM CDT Disclaimer "Some tests 02/03/2023 [facility] reported here may 3:15 PM have been CDT developed and performance characteristics determined by [facility] Pathology and Laboratory Medicine. These tests have not been specifically cleared or approved by the U.S. Food and Drug Administration. If applicable, controls were reviewed and showed appropriate reactivity." Specimen Anatomical Collection Method Collection Time Receive d Time (Source) Location / / Volume Laterality Tissue (Urinary 01/31/2023 6:01 PM 2022 9:07 Bladder) CDT AM CDT Rasta Kramer MD PhD LAB PATHOLOGY ORDERABLES Performing Organization Address City/State/ZIP Code Phon e Number [facility] [place] [address] [address] [place] COVID-19 (SARS-CoV-2) PCR-Asymptomatic [facility] (01/27/2023 9:36 AM CDT)Only the most recent of2 resultswithin the time period is included. [facility] Method Time Signature COVID19 (SARS Not Detected Not Detected AL CoV-2) [facility] Comment: This test is a qualitative [...] fact sheet for patients provided by the tin can laborer ( [employer]) can be rev iewed at: https://www.fda.gov/media/232797/jovan madrid A fact sheet for Health Care providers is provided by the tin can laborer ([employer]) and can be reviewed at: https://www.fda.gov/media/626493/download Results must be interpreted within the c [...] were verified by the Microbiology Laboratory at [facility], CLIA Accreditation #: [id number] and CAP Accreditation #: [id number]. COVID19 SARS Source COPING MACHINE OPERATOR Swab AL MD [facility] COVID19 SARS Indication Pre-OR Procedure [facility] Specimen (Source) Anatomical Collection Method Collection Time Re ceived Time Location / / Volume Laterality Nasopharyngeal Swab 01/27/2023 9:36 01/27 AM CDT 12:39 PM CDT Rasta Kramer MD PhD MICROBIOLOGY - GENERAL ORDER SHANE Performing Organization Address City/State/ZIP Code Phon e Number [facility] Unless otherwise noted, [address] all lab tests performed by: Division of Pathology and Laboratory Medicine [address] [place] [address] CT Chest Abdomen Pelvis with and without [...] AP dimension and extending to the urinary abel dder and the right lateral wall of [...] new to the current examination. A right purchasing administrator ior internal iliac node measures 2.6 x [...] measures 2.6 x 1.8 cm. [facility], this was seen in the prior examination [...] if necessary] Saba GRAY IMG CT ORDERABLES (ABNORMAL) Urinalysis Microscopic Exam (01/12/2023 4:35 PM CDT) athologist Signature UA WBC >182 (H) 0 - 2 /HPF [facility] Comment: Some reporting parameters within the Uri nalysis test have changed due to the implementation of new instrumentation in the [facility], allowing greater sensitivity of measurement. Urinalysis results rep orted by the [facility] using existing instrumentation, as well as Urinalysis t esting performed manually or by backup methodology at the [facility] will remain relatively unchanged. New reporting parameters and units will not be reported for all campuses. UA RBC >182 (H) 0 - 2 /HPF [facility] UA Mucous NOT SEEN Not Seen-Trace /HPF AL [facility] UA Bacteria NOT SEEN NOT SEEN /HPF [facility] UA Squam Epi NOT SEEN None-Occasional /HPF [facility] UA WBC Clump OCC (A) NOT SEEN /HPF AL MD DUNG Salazar [facility] Specimen Anatomical Collection Method Collection Time Receive d Time (Source) Location / / Volume Laterality Urine 01/12/2023 4:35 PM 3 4:39 CDT PM CDT Natalie Horne MD LAB BLOOD ORDERABLES Performing Organization Address City/State/ZIP Code Phon e Number [facility] Unless otherwise noted, [place] [address] [address] all lab tests performed by: Division of Pathology and Laboratory Medicine [facility] [place] [place] (ABNORMAL) Urinalysis w/Microscopic if Indicated (01/12/2023 4:35 PM CDT) Patholo gist Method Time Signature UA Color Yellow Straw-Yel [facility] UA Appear Cloudy (A) Clear [facility] UA Glucose NEG NEG mg/dL [facility] UA Bili NEG NEG [facility] UA Ketones NEG NEG mg/dL [facility] UA Spec Grav 1.018 1.003 - UT MD 1.035 [facility] UA Blood Large (A) NEG [facility] UA pH 6.0 5.0 - 9.0 [facility] UA Protein 200 (A) NEG mg/dL [facility] UA Urobilinogen NEG NEG [facility] UA Nitrite NEG NEG [facility] UA Leuk Est Large (A) NEG [facility] Specimen Anatomical Collection Method Collection Time Receive d Time (Source) Location / / Volume Laterality Urine 01/12/2023 4:35 PM 3 4:39 CDT PM CDT Natalie Horne MD URINE ORDERABLES Performing Organization Address City/State/ZIP Code Phon e Number [facility] Unless otherwise noted, [address] all lab tests performed by: Division of Pathology and Laboratory Medicine [address] [place] Urine Culture (01/12/2023 4:35 PM CDT) athologist [facility] Final Report No growth [facility] Specimen Anatomical Collection Method Collection Time Receive d Time (Source) Location / / Volume Laterality Urine 01/12/2023 4:35 PM 3 5:39 CDT PM CDT Natalie Horne MD MICROBIOLOGY - GENERAL ORDER SHANE Performing Organization Address City/State/ZIP Code Phon e Number [facility] Unless otherwise noted, [address] all lab tests performed by: Division of Pathology and Laboratory Medicine [address] [place] aPTT (01/12/2023 4:19 PM CDT) athologist Signature aPTT 28.7 22.8 - 34.2 [facility] Specimen Anatomical Collection Method Collection Time Receive d Time (Source) Location / / Volume Laterality Blood 01/12/2023 4:19 PM 3 4:39 CDT PM CDT Natalie Horne MD LAB BLOOD ORDERABLES Performing Organization Address City/State/ZIP Code Phon e Number [facility] Unless otherwise noted, [place] [address] CENTER all lab tests performed by: Division of Pathology and Laboratory Medicine [address] [place] [address] Abdomen and Pelvis (12/14/2022 11:44 PM MAXILLOFACIAL PROSTHODONTIST) Specimen (Source) Anatomical Location Collection Method / Collectio n Time Received Time / Laterality Volume Narrative Systemgenerated, Documentation - 023 11:44 PM CDT Study acquired at another institution. For comparison only. No MD Tristan originated interpretation requested or a vailable. Rasta Kramer MD PhD IMG OUTSIDE IMAGE ORDERABLES after 02/23/2022 Insurance Payer Benefit Plan / Subscriber ID Effective Dates Phone Addre ss Type Group [employer] MANAGED A[employer] O [id number] 2021-Present [id number] [place] [address] Care Teams Physiotherapy Assistant Relationship Specialty Start Date End Date Ryan Cox MD PCP - External Referring Urology 01/03/23 [address] [facility] [address] [place] [address] Rasta Kramer MD PhD PCP - General Urology 01/06/23 [address] [place] [address]
--- OUTSIDE RECORDS SUMMARY | 2023-02-23 21:13 | XMS REPORT | Continuity of Care Document ---
:1960 Author Organization [facility] t Address [address] [place] [address] Care Team Providers Name Role Phone [phone] Primary Care Physician Unavailable ALBERT FRANCOIS Attending Clinician Unavailable SYSTEM, PROVIDER NOT IN Attending Clinician Unavailable Geovanni Marie MD Attending Clinician GEOVANNI MARIE Attending Clinician Unavailable Deidre Montemayor Attending Clinician Enrico Florian Attending Clinician Brock LUZ, Randa Goldstein Attending Clinician Unavailable ENRICO WU Attending Clinician Unavailable [facility]ian [facility] Attending Clinician Unavailable Lori Awan RN S Attending Clinician Unavailable Brittany Virgen DTR Attending Clinician Tono Ernie Ellis Attending Clinician Jeannine Osborn MD Attending Clinician JEANNINE OSBORN Attending Clinician Unavailable JOSEFINA CALL Attending Clinician Unavailable Josefina Ramirez Attending Clinician [phone] Osvaldo Gunter MD Attending Clinician ROBE MENDEZ Attending Clinician Unavailable Robe Julien Attending Clinician ALINA KRAMER Attending Clinician Unavailable Williams WELDON PhD, Alina Attending Clinician William Rubio Attending Clinician Negrete MA, Carmen I Attending Clinician Unavailable Freddy WELDON, Yulisa Attending Clinician Kenrick WELDON, Carmela Attending Clinician Joyce WELDON, Jerel Burrell Attending Clinician Kole WELDON, Paxton Salazar Attending Clinician Unavailable Madhu RAY, Melani Aguilar Attending Clinician Unavailable Francisco GRAY, Linda Attending Clinician Simone RAY, Laine Jarvis Attending Clinician Unavailable Narciso RN, George Chiang Attending Clinician Unavailable Luis LUZ, Xiomara Aguilar Attending Clinician Simon GRAY, Randa Attending Clinician Yokasta GRAY, Geeta Bull Attending Clinician Barbie LUZ, January Attending Clinician Unavailable PAUL VU Attending Clinician Unavailable Quincy WELDON, Paul Quintero Attending Clinician JEANNINE OSBORN Admitting Clinician Unavailable ALINA KRAMER Admitting Clinician Unavailable Payers Payer Name Policy Type Policy Number Effective Date Expiration Date Angelita [facility] [id number] 2021 00:00:00 Problems Condition Condition Condition Status Onset Resolution Last Treating Co mments Source Name Details Category Date Date Treatment Clinician Date 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 00 of bladder of bladder An pop neck neck n [facility] 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 00:[place] of of 00 [place] vahid alcantarpin An derso g sites of g sites of n urinary urinary Cancer organs organs Center 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 00:00: [place] without without 00 complicati complrashad lord on on n [facility] Center Mass of Mass of Disease Active Univers urinary urinary 3-14 ity of bladder bladder 00:00: [place] 00 MD [facility] Malignant Malignant Disease Active Uni vers neoplasm neoplasm 3-14 ity of of of 00:00: [place] prostate prostate 00 MD [facility] Renal Renal Disease Active Univers stone stone 3-14 ity of 00:00: [place] 00 MD Shira salazar [facility] Center Diverticul Diverticul Disease Active U nivers itis of itis of 10-30 ity of bladder bladder 00:00: [place] 00 MD Shira salazar [facility] Center Allergies, Adverse Reactions, Alerts Allergy Allergy Status Severity Reaction(s) Onset Inactive Treating Comm ents Source Name Type Date Date Clinician PENICILL Drug Active 2022-0 MD INS Class [...] INS Class 3-16 Anderso 00:00: n 00 Penicill Propensi Active 3-0 Univer s ins ty to 3-16 ity of adverse 00:00: [place] reaction 00 MD s Anderso n [facility] Center PENICILL Drug Active 3-0 MD INS Class [...] INS Class 3-16 Anderso 00:00: n 00 CODEINE DRUG Active Other 2015-10 MD INGREDI 2-03 Anderso 00:00: n 00 CODEINE DRUG Active Other 2015-10 MD INGREDI 2-03 Anderso 00:00: n 00 CODEINE DRUG Active Other 2015- MD INGREDI 2-03 Anderso 00:00: n 00 CODEINE DRUG Active Other 2015- MD INGREDI 2-03 Anderso 00:00: n 00 CODEINE DRUG Active Other 2015-10 MD INGREDI 2-03 Anderso 00:00: n 00 CODEINE DRUG Active Other 2015-10 MD INGREDI 2-03 Anderso 00:00: n 00 CODEINE DRUG Active Other 2015- MD INGREDI 2-03 Anderso 00:00: n 00 CODEINE DRUG Active Other 2015-10 MD INGREDI 2-03 Anderso 00:00: n 00 CODEINE DRUG Active Other 2015- MD INGREDI 2-03 Anderso 00:00: n 00 CODEINE DRUG Active Other 2015- MD INGREDI 2-03 Anderso 00:00: n 00 [...] CODEINE DRUG Active Other 2015-10 MD INGREDI 2 Anderso 00:00: n 00 CODEINE DRUG Active Other 2015-10 MD INGREDI 2 Anderso 00:00: n 00 CODEINE [...] MD INGREDI 2-03 Anderso 00:00: n 00 Codeine Propensi Active Other (See 2015-10 Other Uni vers ty to Comments) 12-02 reaction( ity of adverse 00:00: s): [place] reaction 00 OtherSduke WELDON s ting [facility] Family History Family Member Diagnosis Comments Start Date Stop Date Source Natural father Prostate cancer Unive [facility] MD Kun Santos [facility] Social History Social Habit Start Date Stop Date Quantity Comments Source Exposure to 2023-02-13 2023-02-23 Not sure [facility] SARS-CoV-2 (event) 00:00:00 10:15:00 [facility] Alcohol intake 2023-02-21 2023-02-21 Ex-drinker University 00:00:00 00:00:00 (finding) [place] MD Jorge rizvi [facility] Cigarettes smoked 2023-01-16 2023-01-16 Univers ity of current (pack per 00:00:00 00:00:00 Alma Tristan ) - Reported Cancer Ce nter Cigarette 2023-01-16 2023-01-16 University of pack-years 00:00:00 00:00:00 [place] MD Jorge rizvi [facility] Tobacco use and 2023-01-16 2023-01-16 Former smokeless Uni versity of exposure 00:00:00 00:00:00 tobacco user [place] MD [facility] History of tobacco 1977-12-28 2008-10-30 Snuff User Univ sity of use 00:00:00 00:00:00 Alma rizvi [facility] Sex [birth year] M Universit y of 00:00:00 00:00:00 Alma Patel [facility] Smoking Status Start Date Stop Date Source Ex-smoker 2023-01-16 00:00:00 2023-01-16 00:[facility] Medications Ordered Filled Start Stop Current Ordering Indication Dosage Frequency Signature Comments Components Source Medication Medication Date Date Medication? Clinician (SIG) Name Name aspirin 81 Yes 81mg Take 1 Unive rs mg EC 4-27 tablet (81 ity of tablet 10:32: mg) by [place] 33 mouth. MD Shira salazar [facility] multivitami Yes Take by Uni vers n tab 4-27 mouth. ity of tablet 10:32: [place] 33 MD Shira salazar [facility] acetaminoph Yes pain 1000mg Take 2 Un edwina en 4-27 tablets ity of (TYLENOL) 10:32: (1,000 mg[place] 500 mg 33 by mouth tablet every 6 Anderso (six) n hours as Cancer needed for Center mild pain. capsaicin Yes 1{patch Apply 1 Un edwina 0.025 % 4-27 } patch ity of ptmd 10:32: topically [place] 33 2 (two) MD times a Anderso day as n needed. Cancer Center Saccharomyc Yes 250mg Take 1 Uni vers es 27 capsule ity of boulardii 10:32: (250 mg) [place] (FLORASTOR) 33 by mouth MD 250 mg daily. Anderso capsule Equate n brand. Cancer Center gabapentin Yes Ischial 300mg Take 1 U nivers (NEURONTIN) 02-23 bursitis capsule i ty of 300 mg 00:00: <Right (300 mg) [place] capsule 00 side> by mouth MD twice Anderso daily. n Cancer Center HYDROmorpho Yes Ischial 2mg Take 1 U nivers ne 02-23 bursitis tablet (2 ity of (Dilaudid) 00:00: <Right mg) by [place] as 2 mg tablet 00 side> mouth MD every 6 Anderso (six) n hours as Cancer needed for Center severe pain. baclofen Yes Ischial 10mg Take 1 Univ ers (LIORESAL) 4-26 bursitis tablet (10 ity of 10 mg 00:00: <Right mg) by Alma tablet 00 side> mouth MD every 6 Anderso (six) n hours as Cancer needed for Center muscle spasms (pain). pregabalin 2022- No Ischial 25mg Take 1 U nivers (Lyrica) 25 -26 04-27 bursitis capsule ity of mg capsule 00:00: 00:00 <Right (25 mg) by [place] 00 :00 side> mouth 3 MD (three) Anderso times a n day. Cancer Center levoFLOXaci 2022- No levofloxac Univers n 4-25 04-25 in 500 mg ity of (LEVAQUIN) 16:44: 00:00 [place] 500 mg 56 :00 TAKE 1 MD tablet TABLET Anderso EVERY 24 n HOURS BY Cancer ORAL ROUTE Center DIRECTED FOR 10 DAYS. morphine Yes Chronic 15mg Take 1 Univ ers (MS Contin) 4-25 pain due to tablet (15 ity of 15 mg ER 00:00: malignant mg[place] tablet 00 neoplastic mouth MD disease every 12 Anderso (twelve) n hours. Cancer Center morphine 2022- No Chronic 7.5mg Take HALF Univers (MSIR) 15 02-21 pain due to of a it y of mg IR 00:00: 00:00 malignant tablet [place] tablet 00 :00 neoplastic (7.5 mg) MD disease by mouth Anderso every 8 n (eight) Cancer hours as Center needed for pain. morphine 2022-2022- No Chronic 15mg Take 1 Uni vers (MS Contin) 02-21 pain due to tablet (15 ity of 15 mg ER 00:00: 00:00 malignant mg) by [place] tablet 00 :00 neoplastic mouth MD disease every 12 Anderso (twelve) n hours. Cancer Center morphine 2022-0 2022- No Chronic 7.5mg Take 0.5 Univers (MSIR) 15 02-21 pain due to tablets ity of mg IR 00:00: 00:00 malignant (7.5 mg) [place] tablet 00 :00 neoplastic by mouth MD disease every 8 Anderso (eight) n hours as Cancer needed for Center pain. traMADol 2022- No Malignant 50mg Take 1 U nivers (Ultram) 50 02-01 neoplasm of tablet (50 ity of mg tablet 00:00: 00:00 prostate mg) by [place] 00 :00 mouth MD every 6 Anderso (six) n hours as Cancer needed for Center moderate pain. hyoscyamine 2022- No Mass of .125mg Place 1 Univers (Levsin/SL) 01-31 urinary tablet it y of 0.125 mg SL 00:00: 00:00 bladder (0.125 mg) [place] tablet 00 :00 under the MD tongue Andersangela every 6 n (six) Cancer hours as Center needed (bladder spasms). multivitami Yes Take by Uni vers n tab 3-20 mouth. ity of tablet 10:07: Al[place] 22 MD Silva n [facility] Center levoFLOXaci Yes levofloxac Univers n 3-20 in 500 mg ity of (LEVAQUIN) 10:07: tablet [place] 500 mg 07 TAKE 1 MD tablet TABLET Anderso EVERY 24 n HOURS BY Cancer ORAL ROUTE Center DIRECTED FOR 10 DAYS. aspirin 81 Yes 81mg Take 1 Unive rs mg EC 3-20 tablet (81 ity of tablet 10:07: mg) by [place] 07 mouth. MD Shira salazar [facility] hyoscyamine Yes Mass of .125mg Place 1 Univers (Levsin/SL) 3-20 urinary tablet ity of 0.125 mg SL 00:00: bladder (0.125 mg) [place] tablet 00 under the MD brenda Silva every 6 n (six) Cancer hours as Center needed for cramping. levoFLOXaci Yes Mass of 500mg Take 1 Univers n 3-20 urinary tablet ity of (LEVAQUIN) 00:00: bladder (500 mg) [place] 500 mg 00 by mouth tablet daily. Shira salazar taking one Cancer day prior Center to scheduled procedure hyoscyamine 2022- No Mass of .125mg Place 1 Univers (Levsin/SL) 3-20 04-25 urinary tablet it y of 0.125 mg SL 00:00: 00:00 bladder (0.125 mg) [place] tablet 00 :00 under the MD brenda Silva every 6 n (six) Cancer hours as Center needed for cramping. levoFLOXaci 2022- No Mass of 500mg Take 1 Univers n 3-20 04-25 urinary tablet ity of (LEVAQUIN) 00:00: 00:00 bladder (500 mg) [place] 500 mg 00 :00 by mouth MD tablet daily. Shira salazar taking one Cancer day prior Center to scheduled procedure fenofibrate Yes fenofibrat Univers nanocrystal 05-30 e ity of lized 00:00: nanocrysta [place] (TRICOR) 00 llized 145 MD 145 mg mg tablet Anderso tablet TAKE 1 n TABLET BY Cancer MOUTH 1 Center TIME EACH DAY. simvastatin Yes simvastati Univers (ZOCOR) 40 8 n 40 mg ity of mg tablet 00:00: tablet [place] 00 TAKE 1 MD TABLET BY Anderso MOUTH n EVERY Cancer NIGHT Center fenofibrate Yes fenofibrat Univers nanocrystal 05-30 e ity of lized 00:00: nanocrysta [place] [...] MORNING AND 2 TABLETS IN THE EVENING. metFORMIN Yes 1000mg Take 2 Univ ers (GLUCOPHAGE 4-27 tablets ity o f -XR) 500 mg 00:00: (1,000 mg) [place] 24 hr 00 by mouth tablet daily with Anderso breakfast. n Cancer Center Vital Signs Vital Name Observation Time Observation Value Comments Source Systolic blood 2023-02-23 15:29:00 96 mm[Hg] Univer sity of pressure Alma Crouch on [facility] Diastolic blood 2023-02-23 15:29:00 59 mm[Hg] Unive rsity of pressure Alma Crouch on Cancer Center Heart rate 2023-02-23 15:29:00 109 /min [facility] MD Crouch on [facility] Center Body temperature 2023-02-23 15:29:00 36.61 Verenice [facility] ersity Alma Crouch on Cancer Center Respiratory rate 2023-02-23 15:20:53 18 /min [facility] Alma Crouch on [facility] Center Oxygen saturation in 2023-02-23 15:20:53 96 /min [facility] Arterial blood by Alma jenkins Pulse oximetry [facility] Body weight 2023-02-22 20:00:00 77.1 kg [facility] Cr[facility] on [facility] BMI 2023-02-22 20:00:00 25.85 kg/m2 [facility] Alma Crouch on Cancer Curtis Body height 2023-02-21 15:45:00 172.7 cm [facility] Alma Crouch on [facility] Systolic blood 2023-01-20 16:52:00 131 mm[Hg] Univer sity of pressure Alma Crouch on [facility] Center Diastolic blood 2023-01-20 16:52:00 74 mm[Hg] Unive rsity of pressure Alma Crouch on Cancer Center Heart rate 2023-01-20 16:52:00 87 /min Universi ty [facility] MD Crouch on Cancer Center Oxygen saturation in 2023-01-20 16:52:00 98 /min [facility] Arterial blood by [place] MD Jeff jenkins Pulse oximetry Cancer Center Body temperature 2023-01-16 14:37:31 36.61 Verenice [facility] MD Crouch on Cancer Center Respiratory rate 2023-01-16 14:37:31 15 /min [facility] MD Crouch on Cancer Center Body height 2023-01-16 14:33:00 172.7 cm [facility] MD Crouch on Cancer Center Body weight 2023-01-16 14:33:00 88.7 kg [facility] MD Crouch on Cancer Center BMI 2023-01-16 14:33:00 29.74 kg/m2 [facility] MD Crouch on Cancer Center Procedures Procedure Date / Time Performing Clinician Source Performed PAIN MANAGEMENT ULTRASOUND 2023-02-23 15:25:02 Geovanni Marie [facility] COMPREHENSIVE METABOLIC 2023-02-21 18:38:00 [facility] COMPLETE BLOOD COUNT W/ 2023-02-21 18:38:00 [place] [facility] DIFFERENTIAL [facility] THYROID STIMULATING HORMONE 2023-02-21 18:38:00 [place] [facility] [place] [facility] FREE THYROXINE 2023-02-21 18:38:00 [facility] MAGNESIUM LEVEL 2023-02-21 18:38:00 [facility] PHOSPHORUS LEVEL 2023-02-21 18:38:00 [facility] CANCER ANTIGEN 125 2023-02-21 18:38:00 Kole Enrico [facility] BHCG, TUMOR MARKER 2023-02-21 18:38:00 Kole Enrico [facility] CANCER ANTIGEN 15-3 2023-02-21 18:38:00 Kole Enrico [facility] CANCER ANTIGEN 19-9 2023-02-21 18:38:00 Kole Enrico [facility] CARCINOEMBRYONIC ANTIGEN 2023-02-21 18:38:00 Enrico Wu [facility] MD MYERS BLOOD CONTROL 2023-02-21 18:38:00 Enrico Wu [facility] GLUCOSE LEVEL 2023-02-21 18:38:00 Kole Enrico [place] [facility] BLOOD UREA NITROGEN 2023-02-21 18:38:00 Kole Enrico [facility] SERUM CREATININE 2023-02-21 18:38:00 Kole [facility] [place] [facility] .GLOMERULAR FILTRATION RATE 2023-02-21 18:38:00 Kole Enrico [facility] CALCIUM LEVEL TOTAL 2023-02-21 18:38:00 Kole Enrico [facility] ALBUMIN LEVEL 2023-02-21 18:38:00 Kole Enrico [facility] ALKALINE PHOSPHATASE 2023-02-21 18:38:00 Enrico Wu [facility] ALANINE AMINOTRANSFERASE 2023-02-21 18:38:00 Enrico Wu [facility] ASPARTATE AMINOTRANSFERASE 2023-02-21 18:38:00 [facility] TOTAL PROTEIN 2023-02-21 18:38:00 Kole Enrico [place] [facility] FRACTIONATED BILIRUBIN 2023-02-21 18:38:00 [facility] CBC 2023-02-21 18:38:00 Kole Enrico [facility] MANUAL DIFFERENTIAL 2023-02-21 18:38:00 Enrico Wu [facility] ELECTROLYTE PANEL 2023-02-21 18:38:00 Kole [facility] [place] [facility] IR CT GUIDED BIOPSY PELVIC 2023-02-10 18:18:00 Tommy Josefina [facility] NON-BONE 60 [facility] [place] [employer] CULTURE W/ SMEAR 2023-02-10 18:06:00 [facility]NA[facility] 2023-02-10 18:06[facility]00 [facility]US [facility] W/ SMEAR 2023-02-10 18:06:00 [facility] BODY FLUID [facility] 2023-02-10 18:06:00 [facility] BIOPSY 2023-02-10 17:46:00 Tommy [facility] INTERPRETATION [facility] [place] POC GLUCOSE SCREEN 2023-02-10 17:18:00 Josefina Call [facility] PROTHROMBIN TIME 2023-02-10 16:21:00 Robe Mendez [facility] PLATELET COUNT 2023-02-10 16:21:00 Robe Mendez [facility] POC GLUCOSE SCREEN 2023-01-31 23:56:00 Alina Kramer [facility] PATHOLOGY SURGICAL 2023-01-31 23:01:[address] [facility] CYSTOURETHROSCOPY WITH 2023-01-31 21:59:00 Alina Kramer [facility] ancer TREATMENT OF MINOR Center LESION(S) (LESS THAN 0.5 CM) POC GLUCOSE SCREEN 2023-01-31 21:21:00 Alina Kramer [facility] COVID-19 (SARS-COV-2) 2023-01-27 14:36:00 Alina Kramer [facility] PCR-ASYMPTOMATIC [facility] CYSTOURETHROSCOPY WITH 2023 22:00:00 [facility] C ancer TREATMENT OF MINOR Center LESION(S) (LESS THAN 0.5 CM) CT CHEST ABDOMEN PELVIS W 2023-01-20 16:33:36 Josefina Call [facility] WO CONTRAST UROGRAM Randa [facility] COVID-19 (SARS-COV-2) 2023-01-16 14:20:00 Alina Kramer [facility] PCR-ASYMPTOMATIC [facility] URINE CULTURE 2023-01-12 21:35:00 Natalie Horne [facility] URINALYSIS WITH MICROSCOPIC 2023-01-12 21:35:00 Natalie Horne [facility] IF INDICATED [facility] URINALYSIS MICROSCOPIC EXAM 2023-01-12 21:35:00 Natalie Horne [facility] COMPLETE BLOOD COUNT W/ 2023-01-12 21:19:00 Natalie Horne [facility] DIFFERENTIAL [facility] COMPREHENSIVE METABOLIC 2023-01-12 21:19:00 Natalie Horne [facility] PANEL [facility] MAGNESIUM LEVEL 2023-01-12 21:19:00 Natalie Horne [facility] PHOSPHORUS LEVEL 2023-01-12 21:19:00 Natalie Horne [facility] PROTHROMBIN TIME 2023-01-12 21:19:00 Natalie Horne [facility] APTT 2023-01-12 21:19:00 Natalie Horne [facility] Results CBC 2023-01-12 21:19:00 Natalie Horne [facility] MANUAL DIFFERENTIAL 2023-01-12 21:19:00 Natalie Horne [facility] GLUCOSE LEVEL 2023-01-12 21:19:00 Natalie Horne [facility] BLOOD UREA NITROGEN 2023-01-12 21:19:00 Natalie Horne [facility] ELECTROLYTE PANEL 2023-01-12 21:19:00 Natalie Horne [facility] SERUM CREATININE 2023-01-12 21:19:00 Natalie Horne [facility] .GLOMERULAR FILTRATION RATE 2023-01-12 21:19:00 Natalie Horne [facility] CALCIUM LEVEL TOTAL 2023-01-12 21:19:00 Natalie Horne [facility] ALBUMIN LEVEL 2023-01-12 21:19:00 Natalie Horne [facility] ALKALINE PHOSPHATASE 2023-01-12 21:19:00 Natalie Horne [facility] ALANINE AMINOTRANSFERASE 2023-01-12 21:19:00 Natalie Horne [facility] ASPARTATE AMINOTRANSFERASE 2023-01-12 21:19:00 Natalie Horne [facility] TOTAL PROTEIN 2023-01-12 21:19:00 Natalie Horne [facility] FRACTIONATED BILIRUBIN 2023-01-12 21:19:00 Natalie Horne [facility] OSI CT ABDOMEN AND PELVIS 2022-12-15 05:44:00 Alina Kramer [facility] Plan of Care Planned Activity Planned Date Details Comments Source Future Scheduled Test 2023-02-23 COVID-19 Vaccination [facility] 10:31:49 (#1) [code = MD Kun salgado COVID-19 Vaccination Center (#1)] Future Scheduled Test 2023-01-20 COVID-19 Vaccination [facility] 12:21:23 (#1) [code = MD Kun salgado COVID-19 Vaccination Center (#1)] Future Appointment 2023-02-24 Jeannine Osborn MD, [facility] 00:00:00 [address] [place] [address] Center Encounters Start End Encounter Admission Attending Care Care Encounter Source Date/Time Date/Time Type Type Clinicians Facility Department ID 2023-02-21 Outpatient DAIANA FRANCOIS [facility] [id number] 12:11:02 ALBERT salazar 2023-01-03 Outpatient FELIPE BOYD MDA [id number] 12:39:02 PROVIDER Miko salazar 2023-02-23 2023-02-23 Procedure Chano 1.2.840.1 [id number] [facility] 10:30:00 11:30:00 visit Geovanni Merrill [id number] it y of 3.412.2.7 [place] .3.094053 MD Sneed8 [facility] 2023-02-23 2023-02-23 Outpatient DAIANA MARIE MDA MDA [id number] 10:25:02 10:25:02 GEOVANNI salazar 2023-02-23 2023-02-23 Outpatient DAIANA MARIE MDA MDA [id number] 10:15:28 10:15:28 GEOVANNI salazar 2023-02-23 2023-02-23 Orders Condon, 1.2.840.1 [id number] Univers 00:00:00 00:00:00 Only Deidre [id number] ity of 3.412.2.7 [place] .3.552917 MD Fay [facility] 2023-02-23 2023-02-23 Travel 1.2.840.1 [id number] Univers 00:00:00 00:00:00 [id number] ity of 3.412.2.7 2.2.7.3.698 [place] .3.670063 084.8 MD Fay [facility] 2023-02-22 2023-02-22 Hospital Chano, 1.2.840.1 [id number] Univers 13:05:34 23:59:00 Encounter Geovanni Merrill [id number] ity of 3.412.2.7 [place] .3.576076 MD .[facility] 2023-[facility]-22 2023-02-22 Outpatient DAIANA MARIE [facility] [id number] 13:05:34 23:59:00 GEOVANNI salazar 2023-02-22 2023-02-22 Infusion Kole Enrico 1.2.840.1 [id number] Univers 16:00:00 16:27:04 Randa Gutiérrez [id number] ity of 3.412.2.7 [place] .3.213083 [facility] 2023-02-22 2023-02-[address]U [facility] [id number] 15:01:29 16:27:04 ENRICO salazar 2023-02-22 2023-02-22 Orders Gillian, 1.2.840.1 [id number] Univers 00:00:00 00:00:00 Only Hanna Valladares [id number] it y of 3.412.2.7 [place] .3.227686 MD [facility]ay [facility] 2023-02-22 2023-02-22 Orders Emperatriz, 1.2.840.1 [id number] Univers 00:00:00 00:00:00 Only Lori Goldstein [id number] it y of 3.412.2.7 [place] .3.744732 MD Fay [facility] 2023-02-22 2023-02-22 Travel 1.2.840.1 [id number] Univers 00:00:00 00:00:00 [id number] ity of 3.412.2.7 2.2.7.3.698 [place] .3.401842 084.8 MD Fay [facility] 2023-02-22 2023-02-22 Telephone Param, 1.2.840.1 [id number] Univers 00:00:00 00:00:00 Brittany [id number] ity of 3.412.2.7 [place] .3.363165 MD Fay [facility] [facility] 2023-02-22 2023-02-22 [employer] Ernie 1.2.840.1 [id number] [facility] 00:00:00 00:00:00 Only 19683.1.1 ity of 3.412.2.7 [place] .3.715991 MD Sneed8 [facility] 2023-02-21 2023-02-21 Consult Miguel 1.2.840.1 [id number] [facility] 11:00:00 13:22:28 Jeannine 92193.1.1 ity of 3.412.2.7 [place] .3.799658 MD Sneed8 [facility] 2023-02-21 2023-02-21 Outpatient DAIANA OSBORN MDA MDA [id number] 10:41:21 13:22:28 JEANNINE salazar 2023-02-21 2023-02-21 Jez Wu 1.2.840.1 [id number] [facility] 12:45:00 12:45:00 Encounter Enrico 07679.1.1 it y of 3.412.2.7 [place] .3.071028 MD Sneed8 [facility] 2023-02-21 2023-02-21 Outpatient DAIANA WU MDA MDA [id number] 12:45:00 12:45:00 ENRICO salazar 2023-02-21 2023-02-21 Akua Wu, 1.2.840.1 [id number] [facility] 00:00:00 00:00:00 Only Enrico 32852.1.1 ity of 3.412.2.7 [place] .3.899790 MD Fay [facility] 2023-02-21 2023-02-21 Travel 1.2.840.1 1.2.396.195 [id number] [facility] 00:00:00 00:00:00 59618.1.1 350.1.13.41 ity of 3.412.2.7 2.[place]7.3.698 [place] .3.825197 084.8 MD Fay [facility] 2023-02-10 2023-02-10 Outpatient DAIANA CALL [facility] [id number] 11:30:22 23:59:00 JOSEFINA Mikojuan manuel salazar 2023-02-10 2023-02-10 [facility] Tommy Josefina Randa 1.2.840. 1 [id number] [facility] 11:30:22 23:59:00 Encounter Osvaldo Gunter 31579.1.1 ity of 3.412.2.7 [place] .3.746461 .8 [facility] 2023-02-10 2023-02-10 Outpatient DAIANA MENDEZSHARITA BOURGEOISO [facility] [id number] 11:12:33 11:29:00 Mikojuan manuel salazar 2023-02-10 2023-02-10 [facility] Robe Mendez 1.2.840.1 [id number] [facility] 11:12:33 11:29:00 Encounter Vega 68313.1.1 it y of 3.412.2.7 [place] .3.647867 MD Sneed8 [facility] 2023-02-10 2023-02-10 Travel 1.2.840.1 1.2.935.395 [id number] [facility] 00:00:00 00:00:00 49727.1.1 350.1.13.41 ity of 3.412.2.7 [place].3.698 [place] .3.209816 084.8 .8 [facility]23-[facility]-09 2023-02-09 Outpatient ALINA HERNÁNDEZ [facility] [id number] 13:30:00 23:59:00 Mikojuan manuel salazar 2023-02-09 2023-02-09 [facility] Alina Kramer 1.2.840.1 [id number] [facility] 13:30:00 23:59:00 Encounter William Yeh 26109.1.1 ity of 3.412.2.7 [place] .3.648630 MD Fay [facility] 2023-02-09 2023-02-09 Orders Ángela Yeh2.840.1 [id number] [facility] 00:00:00 00:00:00 Only William N 71024.1.1 ity of 3.412.2.7 [place] .3.607168 MD Sneed8 [facility] 2023-02-08 2023-02-08 Orders Robe Mendez 1.2.840.1 [id number] [facility] 00:00:00 00:00:00 Only Vega 60620.1.1 ity of 3.412.2.7 [place] .3.071722 MD Sneed8 [facility] 2023-02-08 2023-02-08 Education Negrete, 1.2.840.1 [id number] [facility] 00:00:00 00:00:00 Carmen I 57135.1.1 ity of 3.412.2.7 [place] .3.975145 MD Fay [facility] 2023-02-07 2023-02-07 Akua Call 1.2.840.1 [id number] [facility] 00:00:00 00:00:00 Only Josefina 85645.1.1 ity of [place] 3.412.2.7 [place] .3.709981 MD Fay [facility] 2023-02-01 2023-02-01 Telephone Jostin 1.2.840.1 [id number] [facility] 00:00:00 00:00:00 Yulisa aguilar 18950.1.1 ity of 3.412.2.7 [place] .3.642845 MD Fay [facility] 2023-02-01 2023-02-01 Akua Call 1.2.840.1 [id number] [facility] 00:00:00 00:00:00 Only Josefina 85232.1.1 ity of [place] 3.412.2.7 [place] .3.727713 MD Fay [facility] 2023-02-01 2023-02-01 Orders Jostin 1.2.840.1 [id number] [facility] 00:00:00 00:00:00 Only jeff Yulisa 77691.1.1 ity of 3.412.2.7 [place] .3.548475 MD Fay [facility] 2023-01-31 2023-01-31 Outpatient EL ALINA KRAMER [facility] Urology [id number] 12:55:00 21:00:00 Miko o n 2023-01-31 2023-01-31 Hospital Alina Kramer 1.2.840.1 [id number] [facility] 12:55:00 21:00:00 Encounter 85354.1.1 it y of 3.412.2.7 [place] .3.512020 MD Fay [facility] 2023-01-31 2023-01-31 Anesthesia Carmela Choudhary 1.2.840.1 [id number] [facility] 17:14:00 18:46:00 Event Jerel Cook 83613.1.1 ity of 3.412.2.7 [place] .3.361438 MD Fay [facility] 2023-01-31 2023-01-31 Surgery Alina Kramer 1.2.840.1 [id number] [facility] 15:35:00 16:35:00 95883.1.1 ity of 3.412.2.7 [place] .3.645775 MD Fay [facility] 2023-01-31 2023-01-31 Orders Kole 1.2.840.1 [id number] [facility] 00:00:00 00:00:00 Only Paxton Salazar 73464.1.1 ity of 3.412.2.7 [place] .3.409606 MD Fay [facility] 2023-01-31 2023-01-31 Travel 1.2.840.1 1.2.918.522 1624 [id number] [facility] 00:00:00 00:00:00 73188.1.1 350.1.13.41 ity of 3.412.2.7 2.[place]7.3.698 [place] .3.628619 084.8 MD Fay [facility] 2023-01-30 2023-01-30 Alina Graham 1.2.840.1 [id number] [facility] 10:30:00 11:00:00 Appointisi 13376.1.1 i ty of ts 3.412.2.7 [place] .3.259614 MD Fay [facility] 2023-01-30 2023-01-30 Outpatient ALINA HERNÁNDEZ [facility] [id number] 07:27:44 07:27:44 Miko salazar 2023-01-27 2023-01-27 Clinical Alina Kramer 1.2.840.1 [id number] [facility] 10:00:00 10:00:00 Support Melani Leung 17363.1.1 ity of 3.412.2.7 [place] .3.960057 MD Fay [facility] 2023-01-27 2023-01-27 Outpatient ALINA HERNÁNDEZ [facility] [id number] 09:27:18 09:38:45 Miko salazar 2023-01-27 2023-01-27 Travel 1.2.840.1 1.2.729.800 [id number] [id number] [facility] 00:00:00 00:00:00 06949.1.1 350.1.13.41 ity of 3.412.2.7 2.[place].7.3.698 [place] .3.258387 084.8 MD Fay [facility] 2023-01-26 2023-01-26 Akua Singh, 1.2.840.1 [id number] [facility] 00:00:00 00:00:00 Only Linda 80924.1.1 ity of 3.412.2.7 [place] .3.464373 MD Fay [facility] 2023-01-25 2023-01-25 Chika Nichols 1.2.840.1 [id number] [facility] 00:00:00 00:00:00 Laine Jarvis 33951.1.1 ity of 3.412.2.7 [place] .3.433151 MD .8 [facility] 2023 2023 Orders Tommy, 1.2.840.1 [id number] [id number] [facility] 00:00:00 00:00:00 Only Josefina 04216.1.1 ity of [place] 3.412.2.7 [place] .3.660502 .8 [facility] 2023-01-23 2023-01-23 Anesthesia Narciso 1.2.840.1 [id number] [facility] 23:59:59 23:59:59 Event George G 61702.1.1 ity of 3.412.2.7 [place] .3.899912 MD Sneed8 [facility] 2023-01-23 2023-01-23 Alina Graham 1.2.840.1 [id number] [facility] 16:00:00 16:30:00 Appointmen 61215.1.1 i ty of ts 3.412.2.7 [place] .3.592322 .8 [facility] 2023-01-23 2023-01-23 Outpatient ALINA HERNÁNDEZ [facility] [id number] 08:04:35 08:04:35 [facility] 2023-01-20 2023-01-20 Ancillary Tommy 1.2.840.1 [id number] [facility] 12:20:00 15:10:00 Procedure Josefina 02250.1.1 it y of Randa 3.412.2.7 [place] .3.570906 .8 [facility] 2023-01-20 2023-01-20 Ancillary DAIANA CALL 1.2.840.1 [id number] 10:32:58 10:32:58 Procedure JOSEFINA 00872.1.1 An derso 3.412.2.7 n .3.966301 .8 2023-01-20 2023-01-20 Travel 1.2.840.1 1.2.836.376 [id number] [id number] [facility] 00:00:00 00:00:00 72345.1.1 350.1.13.41 ity of 3.412.2.7 2.[place].7.3.698 [place] .3.099084 084.8 MD Sneed8 [facility] 2023-01-20 2023-01-20 Travel 1.2.840.1 1.2.574.875 [id number] [facility] 00:00:00 00:00:00 84423.1.1 350.1.13.41 ity of 3.412.2.7 2.2.7.3.698 [place] .3.668090 084.8 MD Sneed8 [facility] 2023-01-16 2023-01-17 Ancillary Alina Hernández 1.2.840.1 [id number] [facility] 23:55:00 00:00:00 Procedure 62822.1.1 it y of 3.412.2.7 [place] .3.733954 MD Fay [facility] 2023-01-16 2023-01-17 Ancillary Alina Kramer 1.2.840.1 [id number] 1 [id number] [facility] 23:55:00 00:00:00 Procedure 68115.1.1 it y of 3.412.2.7 [place] .3.601847 MD Sneed8 [facility] 2023-01-16 2023-01-16 Ancillary Alina Hernández 1.2.840.1 [id number] [facility] 23:50:00 23:55:00 Procedure 85710.1.1 it y of 3.412.2.7 [place] .3.110338 MD Fay [facility] 2023-01-16 2023-01-16 Ancillary Alina Kramer 1.2.840.1 [id number] 1 [id number] [facility] 23:50:00 23:55:00 Procedure 10533.1.1 it y of 3.412.2.7 [place] .3.395068 MD Fay [facility] 2023-01-16 2023-01-16 Ancillary Alina Hernández 1.2.840.1 [id number] 1 [id number] [facility] 23:45:00 23:50:00 Procedure 02274.1.1 it y of 3.412.2.7 [place] .3.594699 MD Sneed8 [facility] 2023-01-16 2023-01-16 Ancillary Alina Kramer 1.2.840.1 [id number] 1 [id number] Univers 23:45:00 23:50:00 Procedure 49117.1.1 it y of 3.412.2.7 [place] .3.005492 MD Sneed8 [facility] 2023-01-16 2023-01-16 Ancillary Alina Hernández 1.2.840.1 [id number] 1 [id number] [facility] 23:40:00 23:45:00 Procedure 42340.1.1 it y of 3.412.2.7 [place] .3.411757 MD Sneed8 [facility] 2023-01-16 2023-01-16 Ancillary Alina Kramer 1.2.840.1 [id number] 1 [id number] [facility] 23:40:00 23:45:00 Procedure 54422.1.1 it y of 3.412.2.7 [place] .3.736438 MD Sneed8 [facility] 2023-01-16 2023-01-16 Ancillary Alina Hernández 1.2.840.1 [id number] 1 [id number] [facility] 23:35:00 23:40:00 Procedure 12065.1.1 it y of 3.412.2.7 [place] .3.371167 MD Sneed8 [facility] 2023-01-16 2023-01-16 Alina Palafox 1.2.840.1 [id number] 1 [id number] [facility] 23:35:00 23:40:00 Procedure 59961.1.1 it y of 3.412.2.7 [place] .3Naren983880 MD Sneed8 [facility] 2023-01-16 2023-01-16 Ancillary Alina Hernández 1.2.840.1 [id number] 1 [id number] [facility] 23:30:00 23:35:00 Procedure 54548.1.1 it y of 3.412.2.7 [place] .3Naren555757 MD Sneed8 [facility] 2023-01-16 2023-01-16 Ancillary Alina Kramer 1.2.840.1 [id number] 1 [id number] Univers 23:30:00 23:35:00 Procedure 50458.1.1 it y of 3.412.2.7 [place] .3.823062 MD Sneed8 [facility] 2023-01-16 2023-01-16 Ancillary Alina Hernández 1.2.840.1 [id number] 1 [id number] Univers 23:25:00 23:30:00 Procedure 57252.1.1 it y of 3.412.2.7 [place] .3.710940 MD Sneed8 [facility] 2023-01-16 2023-01-16 Ancillary Alina Kramer 1.2.840.1 [id number] 1 [id number] [facility] 23:25:00 23:30:00 Procedure 04943.1.1 it y of 3.412.2.7 [place] .3.761005 .8 [facility] 2023-01-16 2023-01-16 Ancillary Alina Hernández 1.2.840.1 [id number] 1 [id number] Univers 23:20:00 23:25:00 Procedure 90892.1.1 it y of 3.412.2.7 [place] .3.866791 .8 [facility] 2023-01-16 2023-01-16 Alina Palafox 1.2.840.1 [id number] 1 [id number] Univers 23:20:00 23:25:00 Procedure 69588.1.1 it y of 3.412.2.7 [place] .3.265321 MD Sneed8 [facility] 2023-01-16 2023-01-16 Alina Palafox 1.2.840.1 [id number] 1 [id number] Univers 23:15:00 23:20:00 Procedure 01255.1.1 it y of 3.412.2.7 [place] .3.289878 MD Sneed8 [facility] 2023-01-16 2023-01-16 Ancillary ALINA HERNÁNDEZ 1.2.840.1 [id number] 1 [id number] 23:16:21 23:16:21 Procedure 73503.1.1 An derso 3.412.2.7 n .3.236004 .8 2023-01-16 2023-01-16 Alina Morataya 1.2.840.1 [id number] Univers 15:00:00 15:30:00 Appointmen 58544.1.1 i ty of ts 3.412.2.7 [place] .3.234148 MD Sneed8 [facility] 2023-01-16 2023-01-16 Alina Graham 1.2.840.1 [id number] Univers 15:00:00 15:30:00 Appointmen 16200.1.1 i ty of ts 3.412.2.7 [place] .3.305886 MD Sneed8 [facility] 2023-01-16 2023-01-16 Procedure Alina Hernández 1.2.840.1 [id number] 1 [id number] Univers 12:30:00 14:00:00 visit 71628.1.1 ity of 3.412.2.7 [place] .3.229618 MD Fay [facility] 2023-01-16 2023-01-16 Procedure Alina Kramer 1.2.840.1 [id number] 1 [id number] Univers 12:30:00 14:00:00 visit 71543.1.1 ity of 3.412.2.7 [place] .3.116934 MD Fay [facility] 2023-01-16 2023-01-16 Office Alina Hernández 1.2.840.1 [id number] Univers 10:00:00 11:52:17 Visit 15363.1.1 ity of 3.412.2.7 [place] .3.209217 MD Fay [facility] 2023-01-16 2023-01-16 Office Alina Kramer 1.2.840.1 [id number] 121 [id number] Univers 10:00:00 11:52:17 Visit 77442.1.1 ity of 3.412.2.7 [place] .3.099607 MD Fay [facility] 2023-01-16 2023-01-16 Clinical Alina Hernández 1.2.840.5 [id number] 1 [id number] Univers 08:45:00 09:22:06 Support Xiomara Smith A 06296.1.1 ity of 3.412.2.7 [place] .3.561906 MD Fay [facility] 2023-01-16 2023-01-16 Clinical Alina Kramer 1.2.840.2 [id number] 1 [id number] Univers 08:45:00 09:22:06 Support Xiomara Smith A 58526.1.1 ity of 3.412.2.7 [place] .3.516600 MD Fay [facility] 2023-01-16 2023-01-16 NPR EL 1.2.840.1 [id number] Univers 09:00:00 09:09:56 55259.1.1 ity of 3.412.2.7 [place] .3.247674 MD Fay [facility] 2023-01-16 2023-01-16 NPR 1.2.840.1 [id number] Univers 09:00:00 09:09:56 56526.1.1 ity of 3.412.2.7 [place] .3.101630 MD Fay [facility] 2023-01-16 2023-01-16 Travel 1.2.840.1 1.2.880.397 9968 [id number] Univers 00:00:00 00:00:00 23351.1.1 350.1.13.41 ity of 3.412.2.7 2.2.7.3.698 [place] .3.736335 084.8 MD Fay [facility] 2023-01-16 2023-01-16 Travel 1.2.840.1 1.2.515.442 3355 [id number] Univers 00:00:00 00:00:00 06780.1.1 350.1.13.41 ity of 3.412.2.7 2.2.7.3.698 [place] .3.855966 084.8 MD Sneed8 [facility] 2023-01-15 2023-01-15 Anesthesia Rostant, 1.2.840.1 [id number] Univers 23:59:59 23:59:59 Event Randa 65717.1.1 ity of 3.412.2.7 [place] .3.559811 MD Sneed8 [facility] 2023-01-15 2023-01-15 Anesthesia Rostant, 1.2.840.1 [id number] 11 [id number] Univers 23:59:59 23:59:59 Event Randa 66901.1.1 ity of 3.412.2.7 [place] .3.016398 MD Fay [facility] 2023-01-13 2023-01-13 Telephone Yokasta, 1.2.840.1 [id number] 1104 [id number] [facility] 00:00:00 00:00:00 Geeta L 83172.1.1 ity of 3.412.2.7 [place] .3.241109 MD Sneed8 [facility] 2023-01-13 2023-01-13 Telephone Christopherrambo, 1.2.840.1 [id number] Univers 00:00:00 00:00:00 January 63616.1.1 ity of 3.412.2.7 [place] .3.214138 MD Sneed8 [facility] 2023-01-13 2023-01-13 Telephone Yokasta, 1.2.840.1 [id number] [id number] [facility] 00:00:00 00:00:00 Geeta L 64039.1.1 ity of 3.412.2.7 [place] .3.573780 MD Sneed8 [facility] 2023-01-13 2023-01-13 Telephone Barbie, 1.2.840.1 [id number] Univers 00:00:00 00:00:00 January 51399.1.1 ity of 3.412.2.7 [place] .3.477127 MD Fay [facility] 2023-01-12 2023-01-12 Emergency UR PAUL VU MDA Emergency 11 [id number] MD 16:06:00 18:07:00 [facility] 2023-01-12 2023-01-12 Emergency Paul Vu 1.2.840.1 [id number] Univers 16:06:00 18:07:00 Leon 48606.1.1 ity of 3.412.2.7 [place] .3.111202 MD Fay [facility] 2023-01-12 2023-01-12 Travel 1.2.840.1 1.2.275.171 6545 [id number] Univers 00:00:00 00:00:00 06266.1.1 350.1.13.41 ity of 3.412.2.7 2.2.7.3.698 [place] .3.794890 084.8 MD Fay [facility] 2023-01-12 2023-01-12 Travel 1.2.840.1 1.2.550.302 6459 [id number] Univers 00:00:00 00:00:00 33651.1.1 350.1.13.41 ity of 3.412.2.7 2.2.7.3.698 [place] .3.399172 084.8 MD Fay [facility] 2023-01-10 2023-01-10 Orders Tommy 1.2.840.1 [id number] [id number] Univers 00:00:00 00:00:00 Only Josefina 58865.1.1 ity of [place] 3.412.2.7 [place] .3.571251 MD Fay [facility] 2023-01-10 2023-01-10 Orders Tommy 1.2.840.1 [id number] [id number] Univers 00:00:00 00:00:00 Only Josefina 10190.1.1 ity of [place] 3.412.2.7 [place] .3.845663 MD Fay [facility] 2023-01-10 2023-01-10 Orders Tommy, 1.2.840.1 [id number] [id number] Univers 00:00:00 00:00:00 Only Josefina 17879.1.1 ity of [place] 3.412.2.7 [place] .3.111269 MD Fay [facility] 2023-01-10 2023-01-10 Orders Tommy, 1.2.840.1 [id number] 1103 [id number] Univers 00:00:00 00:00:00 Only Josefina 56209.1.1 ity of [place] 3.412.2.7 [place] .3.171481 MD Fay [facility] 2023-01-09 2023-01-09 Travel 1.2.840.1 1.2.326.118 8443 [id number] Univers 00:00:00 00:00:00 26700.1.1 350.1.13.41 ity of 3.412.2.7 2.2.7.3.698 [place] .3.416781 084.8 MD Fay [facility] 2023-01-09 2023-01-09 Travel 1.2.840.1 1.2.921.212 3944 [id number] Univers 00:00:00 00:00:00 53847.1.1 350.1.13.41 ity of 3.412.2.7 2.2.7.3.698 [place] .3.909413 084.8 MD Fay [facility] Results Test Description Test Time Test Comments Results Result Comments Source NGS Blood Control 2023-02-21 20:37:01 Test Item Value Reference Range Interpretation Comme nts Molecular Diagnostics (Received) (test code = 8400) Yes [facility] Curtis[facility], Tumor [id number] 19:33:31 Test Item Value Reference Range Interpretation Comments Beta HCG, Tumor Marker 40.6 See_Comment H Tumor Markers BHCG (test code = 94576-8) Refere nce Range:Negative: <1.0 mIU/mLNon-pregn ant pre-menopausal women: </= 1.0 mIU/mLPost-vic pausal women: </= 7.0 mIU/mLMen: < 2. 0 mIU/mL Testing Performed at [facility], [address], [place] [address] [Automate d message] The sy stem which generated this result transmit oksana reference range : <=0.9 mIU/mL. T he reference range was not used to int erpret this result as normal/abnormal . Lab Interpretation (test Abnormal code = 59623-0) [id number] 19:33:30 Test Item Value Reference Range Interpretation Comments CA 15-3 10.2 U/mL <=25.0 Results greater than 2400.0 U/mL (test code = may not be reli able due to 5170) matrix effect w ith extended dilution as it exceeds the wrapper stemmer hand's recommended limit. Caution should be exercised when interpreting such values and done in conjunction with clinical c ontext.This test is measured by electrochemilum inescence immunoassay on Charanjit Natacha immunoassay kayla lyzers. Results obtained in dif ferent methods are not interch angeable.Testing Performed at [facility], [address], [address], [place] [address] [facility] [id number] 19:33:29 Test Item Value Reference Range Interpretation Comments CA 125 (test 15.6 U/mL Results greater than 11,500.0 code = 5169) U/mL may not be reliable due to matrix effect w ith extended dilution as it exceeds the wrapper stemmer hand's recommended limit. Caution should be exercised when interpreting such values and done in conjunction with clinical c ontext.Reference intervals are n ot available for male patients. Results should be interpreted in conjunction with clinical contex t. This test is measured by electrochemilum inescence immunoassay on Charanjit Natacha immunoassay kayla lyzers. Results obtained in dif ferent methods are not interch angeable.Testing Performed at [facility], [address], [place] [address] [facility] [id number] 19:33:27 Test Item Value Reference Range Interpretation Comments CA 19-9 (test 3.6 U/mL <=35.0 Results greate r than 9500 U/mL code = 5171) may not be reli able due to matrix effect w ith extended dilution as it exceeds the wrapper stemmer hand's recommended limit. Caution should be exercised when interpreting such values and done in conjunction with clinical c ontext. This test is measured by electrochemilum inescence immunoassay on Charanjit Natacha immunoassay kayla lyzers. Results obtained in dif ferent methods are not interch angeable.Testing Performed at [facility], [address], [address], [place] [address] [facility] [id number] 19:33:26 Test Item Value Reference Range Interpretation Comments T4 Free (test code 1.44 ng/dL 0.93-1.70 Testing P erformed at [facility] = 3024-7) [facility], [address], [place] [address] [facility] 19:33:25 Test Item Value Reference Range Interpretation Comments TSH (test code = 0.61 See_Comment Note: New M ethodology and 90459-3) Reference Range change effective 2017 at 1400 Testing Perform ed at [facility], [address] [place] [address] [address], [address], [employer] [address] [Automated mess age] The system which ge nerated this result transmit oksana reference range : 0.27 - 4.20 mcunit/mL. The reference range was not used to interpr et this result as anuel l/abnormal. [facility] 19:33:24 Test Item Value Reference Range Interpretation Comments CEA (test 2.3 ng/mL <=3.8 Reference Range s:Smoker: 0.0 - code = 5.5Non-Smoker: 0.0 - 3.8 This 2039-03) test is measure d by electrochemilum inescence immunoassay on Charanjit Natacha immunoassay kayla lyzers. Results obtained in dif ferent methods are not interch angeable.Testing Performed at [facility], [address], [address], [place] [address] [facility] DistrictFractionated [id number] 19:26:56 Test Item Value Reference Range Interpretation Comments Bili Total (test 0.4 mg/dL <=1.2 Indocyanine Green (ICG) code = 1974-) may cause fal sely elevated biliru bin results. Total and direct bilirubin must not be measured from s amples containing indo cyanine green. False el evation of total bilirubin can be seen in patient s with IgG concentrations above 28 g/L.Testing Per formed at [facility], [address], [address], [place] [address] Bili Direct (test 0.2 mg/dL <=0.3 Indocyanin e Green (ICG) code = 1967-) may cause fal sely elevated biliru bin results. Total and direct bilirubin must not be measured from s amples containing indo cyanine green. Testing Performed at [facility], [address], [address], [place] [address] Bili Indirect (test 0.2 mg/dL 0.0-0.9 Testing Performed at [facility] code = 1970-) [facility], [address], [place] [address] [facility] District[facility]omer[facility] Rate 2023-02-21 19:26:55 Test Item Value Reference Range Interpretation Comments eGFR (test code = 97 See_Comment [place] [address]-9) the 2020 CKD-EP I creatinine equation using creatinine, patient's age, and sex for adults 18 years of age and older. Other fa ctors, especially musc le mass, may affect accuracy and need to be considered.A ccording to the Kidney Dise ase: Improving Global Outcomes (KDIGO) CKD Work Group 2012 Clinical Practice Guidel ine, chronic kidney disease (CKD) is defined as the abnormalities of kidney struc ture or function, prese nt for more than 3 months, with implications fo r health. CKD should be class ified by cause, GFR lior gory, and albuminuria cat egory. KDIGO guidelines prov carlos the following GFR c ategoriesStage Description GFR mL/min/1.73 m2G1* Normal or high >= 90G2* Mildly decrease d 60-89G3a Mildly to moder ately decreased 45-59 G3b Moderately to severely dec reased 30-44G4 Severely decrea sed 15-29G5 Kidney failure <15*In the absence of evid ence of kidney damage, neither G1 nor G2 fulfill criteri a for CKD. Testing Perform ed at [facility], [address] [facility], [address], [place], [place] [address] [Automated message] The sy stem which generated this result transmitted ref erence range: >=60 mL/min/1.7 3 sq. m. The reference range was not used to interpret th is result as normal/abnormal . [facility] DistrictTotal [id number] 19:26:54 Test Item Value Reference Range Interpretation Comments Total Protein (test 7.1 g/dL 6.4-8.3 Testing Performed at [facility] code = 2885-2) Lab Ambulator y [facility], [address] [place] [address], [address], [place] [address] [facility] DistrictPhosphorus [id number] 19:26:53 Test Item Value Reference Range Interpretation Comments Phosphorus (test code 3.2 mg/dL 2.5-4.5 Testin g Performed at = 2777-1) [facility], [address] [place] [address], [address], [place] [address] [facility] DistrictMagnesium [id number] 19:26:52 Test Item Value Reference Range Interpretation Comments Magnesium (test code = 1.9 mg/dL 1.6-2.6 [place] [address]-4) [facility] Lab Ambulat ory [facility], [address] [place] [address], [address], [place] [address] [facility] DistrictCalcium Vlznr1515-40-94 19:26:51 Test Item Value Reference Range Interpretation Comments Calcium Lvl (test code = 11.0 mg/dL 8.4-10.2 H Dodie ting Performed 67480-7) at [facility] Lab [facility], [facility] [facility], [address], [place] [address] Lab Interpretation (test Abnormal code = 79044-5) [facility] DistrictElectrolyte Kvcuo0494-47-17 19:26:50 Test Item Value Reference Range Interpretation Comments Sodium Lvl (test code = 139 See_Comment Test ing Performed at [facility] 2951-2) Lab [facility], [address], [address], [place] [address] [Automated mess age] The system which ge nerated this result tra nsmitted reference range : 136 - 145 mEq/L. The reference range was not u sed to interpret this result as normal/abnormal . Potassium Lvl (test 3.6 See_Comment Testing Performed at [facility] code = 2823-3) [facility], [address], [address], [place] [address] [Automated mess age] The system which ge nerated this result tra nsmitted reference range : 3.5 - 5.1 mEq/L. The reference range was not u sed to interpret this result as normal/abnormal . Chloride (test code = 100 See_Comment Testin g Performed at [facility] 2074-0) Lab [facility], [address], [address], [place] [address] [Automated mess age] The system which ge nerated this result tra nsmitted reference range : 98 - 107 mEq/L. The refe rence range was not u sed to interpret this result as normal/abnormal . CO2 (test code = 27 See_Comment Testing Per formed at [facility] 2028-06) [facility], [address], [address], [place] [address] [Automated mess age] The system which ge nerated this result tra nsmitted reference range : 22 - 29 mEq/L. The refe rence range was not u sed to interpret this result as normal/abnormal . Anion Gap (test code = 12 See_Comment Testi ng Performed at [facility] 27266-5) Lab [facility], [address], [address], [place] [address] [Automated mess age] The system which ge nerated this result tra nsmitted reference range : 4 - 14 mEq/L. The refe rence range was not u sed to interpret this result as normal/abnormal . [facility] CurtisAlkaline Zutuiqaqqof1413-64-79 19:26:49 Test Item Value Reference Range Interpretation Comments Alk Phos (test code = 62 U/L 40-129 Testin g Performed at [facility] 6768-6) Lab [facility], [address], [address], [place] [address] [facility] DistrictAlbumin Wkruk7594-56-04 19:26:48 Test Item Value Reference Range Interpretation Comments Albumin Lvl (test code = 3.4 See_Comment L Dodie ting Performed at 1751-7) [facility], [address], [address], [place] [address] [Automate d message] The sy stem which generated this result transmit oksana reference range : 3.5 - 5.2 gm/dL. e reference range was not used to int erpret this result as normal/abnormal . Lab Interpretation (test Abnormal code = 26288-0) [facility] DistrictAspartate Aminotransferase 2023-02-21 19:26:47 Test Item Value Reference Range Interpretation Comments AST (test code = 12 U/L <=40 Testing Per formed at [facility] 1920-8) Lab [facility], [address], [address], [place] [address] [facility] DistrictALT2023-04-25 19:26:46 Test Item Value Reference Range Interpretation Comments ALT (test code = 20 U/L <=41 Testing Per formed at [facility] 1742-6) [facility], [address], [address], [place] [address] [facility].Serum Rhdsaauyqe1820-99-51 19:26:44 Test Item Value Reference Range Interpretation Comments Creatinine (test code 0.87 mg/dL 0.67-1.17 Testin g Performed at = 2160-0) [facility] Lab Ambulat [facility], [address], [address], [place] [address] [facility] DistrictBUN2023-04-25 19:26:43 Test Item Value Reference Range Interpretation Comments BUN (test code = 20 mg/dL 6-23 Testing Per formed at [facility] 3094-0) [facility], [address], [address], [place] [address] [facility] DistrictGlucose Jsjuv4624-90-96 19:26:42 Test Item Value Reference Range Interpretation Comments Glucose Level (test code 136 mg/dL 70-99 H Eff ective 05/25/16, = [...] associ ated with increased risk for diabetes Te sting Performed at [facility] Lab [facility], [address] [facility], [address], [place], [place] [address] Lab Interpretation (test Abnormal code = 84525-5) [facility] DistrictDifferential2023-04-25 18:47:36 Test Item Value Reference Range Interpretation Comments Neutrophil % (test code 73.4 % 42.0-66.0 H As p art of = 770-8) Differential performed at [facility], [address], [address], [place] [address] Lymphocyte % (test code 7.2 % 24.0-44.0 L = 736-9) Monocyte % (test code = 6.8 % 2.0-7.0 5905-5) Eosinophil % (test code 11.4 % 1.0-4.0 H = 713-8) Basophil % (test code = 0.4 % 0.0-1.0 706-2) IGRE % (test code = 0.8 % 0.0-0.4 H IGRE % c ount 53829-7) includes Metamyelocytes, Myelocytes, and Promyelocytes. As part of Differe ntial performed at [facility] Lab [facility], [address], [address], [place] [address] Neutrophil Abs (test 23.08 K/uL 1.70-7.30 H code = 751-8) Lymphocyte Abs (test 2.26 K/uL 1.00-4.80 code = 731-0) Monocyte Abs (test code 2.15 K/uL 0.08-0.70 H = 742-7) Eosinophil Abs (test 3.60 K/uL 0.04-0.40 H code = 711-2) Basophil Abs (test code 0.13 K/uL 0.00-0.10 H = 704-7) IG Abs (test code = 0.26 K/uL 0.00-0.04 H 47044-4) Lab Interpretation Abnormal (test code = 88469-6) [facility].FID1112-65-26 18:47:24 Test Item Value Reference Range Interpretation Comments WBC (test code = 31.5 K/uL 4.0-11.0 H 6690-2) RBC (test code = 789-8) 4.55 See_Comment [Au tomated message] The system [employer] generated this result transmitted ref erence range: 4.50 - 6 .00 M/uL. The refer ence range was not u sed to interpret this result as normal/abnor mal. Hgb (test code = 718-7) 12.5 See_Comment L As p art of CBC or as an individual orderable testi ng performed at [facility] Lab [facility], [address], [place] [address] [Automate d message] The sy stem which generated this result transmit oksana reference range : 14.0 - 18.0 gm/dL. T he reference range was not used to int erpret this result as normal/abnormal . Hct (test code = 39.5 % 40.0-54.0 L As part of CBC or as 4544-3) an individual orderable testi ng performed at [facility] Lab [facility], [address], [place] [address] MCV (test code = 787-2) 87 fL 82-98 MCH (test code = 785-6) 27.5 pg 27.0-31.0 MCHC (test code = 31.6 See_Comment [Automate d message] 786-4) The system whic h generated this result transmitted ref erence range: 31.0 - 3 6.0 gm/dL. The refe rence range was not u sed to interpret this result as normal/abnor mal. RDW-SD (test code = 42.1 fL 35.1-46.3 15634-3) RDW-CV (test code = 13.4 % 12.0-15.5 788-0) Platelet count (test 605 K/uL 140-440 H As part of CBC or as code = 777-3) an individual orderable testi ng performed at [facility] Lab [facility], [address], [place] [address] MPV (test code = 9.3 fL 4.0-10.4 42193-5) INRBC (test code = 0.0 % <=0.0 The INRBC (instrument 57489-9) NRBC) value ref lects the enumeration of nucleated red b lood cells contained in a 200uL sampleof whole blood analyzed by the instrument. Thi s value maydiffer from the NRBC value reported in a m anual differential,wh ich is based on a 100 cell differential. A s part of CBC testing performed at [facility] Lab [facility]ail Agent [address], [place], [place] [address] Lab Interpretation Abnormal (test code = 73405-6) [facility] DistrictAnaerobic Cnmoobv8477-19-19 17:15:56 Test Item Value Reference Range Interpretation Comments Final Report (test No growth code = 8488) YI (test code = Label OnlyArrived with YI) specimen [id number]/ 2:00:24 PM CDT Processed in Micro 02/10/2023 3:51:48 PM CDT [facility] DistrictBody Fluid Reuuhxq6664-63-37 14:44:54 Test Item Value Reference Range Interpretation Comments Final Report (test No growth code = 8488) Gram Stain Report Many WBC's seenNo (test code = 8487) organisms seen. [facility] DistrictPathology Biopsy Interpretation 2023-02-13 15:14:32 Test Item Value Reference Range Interpretation Comments Submitted Clinical History n0phuYZrRMLib4ixEQL (test code = 63061) mbGFuZzEwMzNcZnRuYm pcdWMxIHtccnRmMVxzc 4IqJ6PsKfReVLdgyzZb XGRlZmxhbmcxMDMzXGZ 0bmJqXHVjMVxkZWZmMH fyWf2abLUdgArtUbLtG JLnu0cmaiOLnaefqWx3 t6aeKSLaCnQ1pRUsYTj uB7aaadPcdUWhQZDoEA s5zC33AIFmtL2lmENfQ NrsvyUjYbP1OAvySSHi SuC1OBIncKXxEUBzC6y yZWQwXGdyZWVuMFxibH NbZUM7iHrok7P3hOVvz GVldHtcZjBcZnMyMiBO o1IdYGm6gShuN5NjKTX zGiC1kBBfSLTvHQokPB EbLVNiosQ1pW68NRcon xP8yVHke5Xjp30ny284 zW9fxCVxTMH3ZJBjKWP qwXFsZHIcRRA9INLpzJ CzW5dqCTCvKC7uhkaiD DnbBBrsFKGiuME4DDGb fQHeJ6NaCYMfTGpsPLO llrh4HuDdAb0uzJQezC hkFSxre5bus3dkpAFgN rv2RBSwXvMhExydHDbo m5Yqi6pgWWDkxu1dHMQ 0rDGozZlgc2X5mJVvMP MmpOJnshXsTQYuHsJ3K MzgKV1mbg33XGOhAUI1 pd2wsIHlfIfgplNyrUD mUGubK7QyELHee911LM RnZ8EtDCRqh6H6umEjW oMzKKFrgGZ5iqG9TVAm AAl6uUYsbzW5qwGzxZI lQ2qfnQ5sWNRuRJ8eht qjv6sbPZbpDUwvBXUii TI2toO7GPYofUZiJ7Fs oQ8nOUFpKSzoFJHjxko 1MaUoVn0ntVIwpCouTH xzYmtwYWdlXHBnbmNvb nRccGduZGVjXHBsYWlu XHBsYWluXGYwXGZzMjR rzEuqxYwmyR2vXzJiDa HqAEvjMR0oTZSoQ1uxl PZfYJSxUOUsT1jyJoPc rT7mgVwzCDlzqrRxFT2 yn0Yam9GaaVHeqdKhhD BibGFkZGVyIFtOMzIuO DldXHBsYWluXGYxXGZz MjJcbGFuZzEwMzNcaGl jaFxmMVxkYmNoXGYxXG prH3ujEcQiEgVjQxdeW XJ9fQ== Diagnosis (test code = 34) w0nstGMsINBylXHoEOP wNlxhbnNpXHNwbHRwZ3 SrerqvITocLO6cZX1vv GxhdHRveWVuXGRlZmYw r8jhh300lDXva4khCAV OqplmzSd6eBsoI62bv9 A3BbdxO4hnPWAvPXoxF QJoIWdcgACpJXv6OCJk cGVydzEyMjQwXHBhcGV aqST8FYMsFO6gucsmXT lnLYfvALKqslQ0BEVuz FZdI7ObUYPuWP4awwjc CKA4AScuTJHcOEY9GgZ oYHHvf7Vfwwe9SfSltX FyZFxwbGFpblxmczIwX KZgTGWCOnPSRXe5pHNq j6fpFVipaSumXICqN6y 6LQGrzY9tj8e7JEEtft ughMneCLvhfD31UrTjO 7RsTQ9TDVYOLPKGEJQx VVJPVEhFTElBTCBDQVJ HRG3EJGZoRQHiagZGG2 VkaEYokA1qtR5dKKO2k RWneWTbKL5sIZQfNJce IO86pbWxOtCjg3VzCDE hbCBtdXNjbGUgcHJlc2 EleM2xiEMoEGEdmnzxJ XWckKFsDEEIBw0PLRYe XHBhcn0= Gross Description (test y2ybvXTzTKAsdNXgEEX code = [id number]) wNlxhbnNpXHNwbHRwZ3 HzohlcSSenFL7qRD0cr GxhdHRveWVuXGRlZmYw g3fof996kTZob9egMPT ArzqxoEu3qCuaI25rk4 V6JwphI3lvGPRcTDpvS TQcZCwutPCrMRn9ORUn cGVydzEyMjQwXHBhcGV tcUK1MLWhCI4dpudeMH bsJKnuADIugnT2LQBeb KYyA5RyLOLnFC8ufjer TKE9NFvcXGQtEHV9GeW fUNWbg3Gnbfm2RwM3KS duZHQlO2IvI8BdRTwxR GA2QCWcBRRgVXVkPZ9C WeOsZYDoBUO4YqHsMKD QNPSpFSU0OoGnPEUIYH QoRWUtBLb1BJH4KXLxO FJSIDEyMzAwMDAwMjEg XFxuaCBcXHQgMSBcXGZ aAWppapH7v6dcLOUgxP XiEEO8LXpgkIZjKRHmE DIgXFxkYiBPVlIgIiAx WnLuDbn6BdF5QTe9TUM DLpJtSkGqALNqEfm5RF xcVZe2DOj4ZCmGDrTqI sLyLzZbYpYxOIF6OEZr OTxxoRLvLImxs1EvQfK yYXCdWRyjdmP6OEFdpi DsxYxtjR0nIoyjlxTqW NJ9JPUkvroqFMZnBOAu HhQaJOFqJ6wpYrOjNZT oTbNxXJUmJ1slDQZjVN BsYWluXGJcZnMyMFxjZ jEgUGVsdmljIHNpZGV3 YWxsLCByaWdodCwgYml atTD6CJgdIpRtP7TcUK Y3PCIhOzWaTOFfhGGyd KZzABOfay69lRb6FZT9 xPGfrAFpQ48eGWRjUJP uMiBjbSAtIDAuNSBjbS FzadHtYC6baEghXI4bY DAuMSBjbSBpbiBkaWFt OISnbffhAQ72bHEpzUf ba9CnsUh6vPZzPQyePW SuMkOnFAFnm2TvQ0M2X YKhMFuva3kvABHlJTlz n3WjMFvPXXEGJM9KBN6 feTN3CVjGF5GEP9kEkQ FvLYU7xWV2MBAKFwanl DX3lOH7jQ04MMApPQWb cXWcEArkA121WNQ0UJU uGZtyd8bpMOLqVQive5 WwEQfPTYKXZM1GCG7vf AR2FMzDW6FICSpvVHWh HblijYZJULA3AAogtCi msEc2m9aesVPau0e7EJ izNJS7rDgxzWQaythym gEpb8rfrTbds3IweFRt XX79KERyvMWmRSW2QU5 kfVxwYXJ9 Biomarker Block(s) (test l3kllRHyHAGqrRRtRFE code = 9841) wNlxhbnNpXHNwbHRwZ3 BrkzkxERcsZV3hIE1oc GxhdHRveWVuXGRlZmYw p8eoa079rMXtj1beDUW MylusxVx0tZcrI22po2 J3JupfU17zyUTpOCR6G TIyNDBccGFwZXJoMTU4 FETlaLYkL4naLUByYY1 hcmdyMTgwMFxtYXJndD B2FNDdcYKfC2DlTFIqG QcoGXNwmvf0CmXlAs4e dGVyeTcyMFxwYXJkXHB eKZyvWUYeUxAaLEV3LG W0IQAnFqN3fI4jdhLrc H3fsbtTNRdfNZS0 Disclaimer (test code = a1uufYPxUMZrnWVhXtZ 9844) fAFCpZROya7lqQGDblP FuZzEwMzNcZnRuYmpcd KAtCBLpZqIpu5hbt053 zUXbz6zzAVTxHbS7sEW nFVUvkKUkC776ZLUdIU jzs3ykb6DxZJUeiATod 5F2VWHDxjuqdHl3jUcg K72el6J5PoyjA7wmHZM ePZSgG6FyQT0mQLAjVu z0OLV5VZF5UEZnCDPsC 3GjSY4iAXVdcSVcBJv4 e7cxfSxuPJGtFRG5e3a vRNtkreXmQF0xzn9uvQ a9b8ugcySkABScUSUvd FPVBSTcZ3SehFliBu7i lSs7oTkjWaboECM8Duk 4ZY8hlv39lvk3zRsuEQ DfcdczZfF9WGjvOJStm euhYUo6JGgbJZGpkHH5 ZXTdvREyS1JmYITuQW9 pbdw1LHH3QOvdOCEzYi D8CDHscGBjKSKebGuaG Mpur982RIS7HaWvCW0e E7Gnp3S9vC2pzERrBES zsPOwJhJoPHAbsc9jyB MuIQyxi6GzCOJ4soT9k DOkrAKiZBYwVS81Sxes f3VrSteeHPE2DODlujH oh2Ios8xjLxBnmyUcJ7 ijS1XsVSLvBHPcDVIfG eMbvnKur1Ytd1KiqUKv jFv6b5blKYLmABExbZd me9mjYTW8TRScX4Q4pK Pxo2dzMEtdUVDxcVM2a zX3QLVbwTKzV0QqeY5r KTCpBZ6xbdm6g8tkXIA 6HHbyFJKyKoN8hbS6WY BcaGVhZGVyeTcyMFxmb 393KEU5QvOuDFMuv8Vp S4EuaRvoT62mzNygT45 oMDFhcUzdiJ4qpHbppR 5cZjBcZnMyNFxxbFxwb BDbymjgRYgmsrB3YMqc cthhXUNtQRmlU6rzXdG lYSAbbClnOZype9LwRS SpAAHcEbwpvjD1FMCJx 94oHVXlt8VaSYDetE2s bCXgKDxugrXnpWU8GWb hdmUgYmVlbiBkZXZlbG 7vDMStAB9cKCTepvJxo t2ujmEaZEWhWQQyZ5Yc cmlzdGljcyBkZXRlcm1 mvnShFHU8WTFAFI1IIG FcDPAef96aPILpyXyfa I3zwIFxygFuEXTeb0Mu dM0xxWBGRXGoL9hjWA8 kWDvyl6ZhpYZtoVFddS W2YGPxx7IcEuRivcCqg KGiuRGgC2PbpXijK0my ACJoBVUomyGpuIGnn6H nVSDasUR2lJLgOH0URd DGl94uTLCnBDEWxyIfF SSgbNihlVB0siE5eK6i LiBJZiBhcHBsaWNhYmx vXFKuv496op4fbdN7UT DuQTQddwfka5CwCXVlN PZzhJ26RPYyHBNcde5h dzqxfFYjjrIvH6Wlcys 3jO3xOUJgFIxmBKMjZP ZzMjJcbGFuZzEwMzNca GljaFxmMVxkYmNoXGYx KDwkD7guIiLtNrMpUxa wYXJ9 [facility] Glucose [id number] 17:20:24 Test Item Value Reference Interpretation Comments Range POC Glucose (test 109 mg/dL 70-99 H Capillary blood code = 5651) samples, e.g. obtained by fingerstick, chantell y have inaccurate resu lts in patients with decreased perip heral blood flow. All POC Glucose screen test results, includ ing critical values , must be interpreted and evaluated in th e context of the patients clinical findi ngs. It is recommend ed to confirm any questionable te st results by core lab methodology. Me thod description: Al l results are kareen sured using Electrochemistr y test methodology. Th e glucose in the sample mixes with the reagents on the test strip. The reac tion produces an yinka ctric current. The am ount of current prod uced is proportional to the glucose concentration i n the blood. PO Sample Type (test Capillary code = 9554) Performing Lab (test [facility] [place] code = 63194) [facility], [address], [place] [address]; Bear Keeper: Audrey Lopez MD; Waived Point of Care Testing - Fior tobar MD Lab Interpretation Abnormal (test code = 81204-7) [facility] DistrictProthrombin Time with [id number] 17:12:50 Test Item Value Reference Range Interpretation Comments PT (test code = 14.2 See_Comment H Result confi rmed by 5902-2) repeat analysisTesting Performed atA [facility] [id number] [facility] [address] [Automated mess age] The system [employer] generated this result transmit oksana reference range : 11.9 - 14.1 second(s). The reference range was not used to interpret this result as normal/abnormal . INR (test code = 1.14 0.89-1.10 H Result conf irmed by 6301-6) repeat analysisTesting Performed atA Lab [facility] [id number] [facility], [address] [address] YI (test code = This lab cannot YI) be scheduled at the following locations due to collection/proc cessing restrictions: [facility] and [facility]. Lab Interpretation Abnormal (test code = 06891-2) [facility] DistrictPlt Mmeaq2542-55-28 16:28:47 Test Item Value Reference Range Interpretation Comments Platelet count (test code 478 K/uL 140-440 H As part of CBC or as = 777-3) an individual orderable testi ng performed at B [facility], [address], [place] [address] MPV (test code = 09277-9) 9.0 fL 4.0-10.4 Lab Interpretation (test Abnormal code = 59388-7) [facility] Surgical Interpretation 2023-02-03 20:15:04 Test Item Value Reference Range Interpretation Comments Submitted Clinical History o5mkzNBzDVGkd0szXZT (test code = 65052) mbGFuZzEwMzNcZnRuYm pcdWMxIHtccnRmMVxzc 6GvH7NgHeRtGYbdhlNq XGRlZmxhbmcxMDMzXGZ 0bmJqXHVjMVxkZWZmMH zoNs1fxONgrJenAwFgB VHqx6tlmdYWbydykFk4 l5niTNMpAxN8nOArGKk hD4ptpvStiYZdIUWhIM v9yS70SHMucN6suVGhT RvgbkWxUyW2FIaoKIHy MzE1RLIkhZUaDGEeX0s yZWQwXGdyZWVuMFxibH MlKNC7kXukl5I4jYAcl GVldHtcZjBcZnMyMiBO e2GjBOk2rMxnA2QkGRH qMgV8kZFnKNGuBCjyBN ZoSKPtkfN6cR98QBimw jK3rFHvo2Gye57ij673 vA6tvPUzUNU6SLNiUHW hhIHeFFWlVDZ7BEJqhK XzV5xqKAZyDU0iiohnW ZigUQheLJCddSL2ZPOu hWAjQ1LvEFNeEMmcVKZ odkm0MdNaNq3zzSAacS kgBZlwi8azn4lirXQuO nf9KJBtFvAjZtaeFXxh g7Zhr0qmBVXlin6gJNG 0nICbwAamz9T3iKLaWQ YreXKhuiFvRKJiGrP6R KnkDJ3mtf50BBQbVTK7 gg8dhCCjoYhshfWzkVG qSEipG5RyQXXiz573CV FiT4JiXRQoe1Z2vbIuA vBjNAVhvGU2tsZ4CNXg IHu3vZTidyA5hjOhhMJ gY2ajzS4fVHJsER2uko qzk4koODwgNQozNFRlc HG8bmP0OSCevQBaH0Rc uS1qLVQoIHkeGDNmnlt 1BeBjDk9tiCWxaNomGS xzYmtwYWdlXHBnbmNvb nRccGduZGVjXHBsYWlu XHBsYWluXGYwXGZzMjR oyUmafXtaxY4nJiJsLr XnBXrtZU6nGSCjU1vgc FNsOEJwPMHjP5dqOuIy nM4duDjeUCreikNqMN7 mh1Pqj4FmbWRhdfZotJ BibGFkZGVyIFtOMzIuO DldXHBsYWluXGYxXGZz MjJcbGFuZzEwMzNcaGl jaFxmMVxkYmNoXGYxXG jeO6saKtIaLtMfObilJ XJ9fQ== Diagnosis (test code = 34) p0wyxMTdIWFcwCXyPAW wNlxhbnNpXHNwbHRwZ3 YouktlDEdxGG9pCV8kp GxhdHRveWVuXGRlZmYw h6bag275gYYrs6bqAFJ CjykiuMi5oGrqC87wt3 R5DxaeI3dfFXQrADhjQ RDtGHrnlVWuRFr5PWRd cGVydzEyMjQwXHBhcGV qtZU5AKPpIK9zggvuVE tqOElgUPKdalK4GCXor BCmL0BsAXLyXJ5pwvtw JOQ8SXseCCJhHHF9XiK dAPIzm9Dldnv1TmDkbV FyZFxwbGFpblxmczIwX GNmMSBBOiBVcmluYXJ5 IGJsYWRkZXIsIGJsYWR jTCIlwWMxk4EsIhyrZC JcbGkxNDQwXGZpLTcyM RwuyK4xIJLuWFuuRGC9 bHBhclxjZjAgUEFQSUx MVBEUELGMW9BNAWtHVQ csI3CFZ4pLF34QTZTBV UdIIEdSQURFLCBJTlZB W0rWJKNHDyXOIG9WN3L VTEFSSVMgUFJPUFJJQS 3enMUlLTTPJ4IGBQhGO VyhC9QIW9aMJ79MITiQ IFNJVFUuXHBhclxsaTc yMFxmaTBcbGluNzIwXG FxXELTbN1uvK72GQTta CujfjIyeoVvw6pzkjWr oeKrp1JlwXFtvnOgZbg xJJ5zANEuFSWmZGXmsx xwYXJkXHBhciBQWFQvR lFZXHBhcn0= Gross Description (test a8xpdGNlBFWoyFVHIEI code = [id number]) uIMNiRW3liSkvvZu7zK vnIYZmstJ1vWIlWNuql 9omJVA8k2rsyqOBFdjo GYGdPK8iBHcdLEQwRX6 nZmUwXGRlZmYxXHBhcG VydzEyMjQwXHBhcGVya JD6OJKrEG0zgbjfILnt DKnyWFKzyrQ9YVLkaAI oP0HnRLKnGH7jxwjcFY H6YMVTJsdlOr6lnCBsq HtcZjFcZmNoYXJzZXQw FMLvfFcxUSYpABn9kS5 TMtfmV91lv8I6Mse9KT TnEIHnB9CoTR0tGJOls OXfK41PTpidEYQ0JHJP LkkdEhplcQygw3JcvNZ cXHNnIFxcaWQgNTEwMD AgXFxkYiBPVlIgIiAxM eCcZMC0FyM7KUk7CKCB VJMzNmBdTkewZtX0EWx 4TIDhPH8kQVeerIDhYF raNqzmOXttF168AUupD EYhT5YwG4IrFDtqMlKn XGlkIDUxMDAyIFxcZGI jX3HHDKRqHTM7RConKh ViHTe8FTpfK8LKHHIdD LH6SwV7DnDpFzW0LNg0 PHWQRx9oZTO7POy3GKU zHwF9LEd5SqNqMXOpWp BcXHNzIDMgXFxmbCBcX N9icQdkQJTaIV6SYYLp YWluXGJcZnMyMCBBOlx wYXIgDQpccGFyZCANCl xwbGFpblxiXGZzMjBcc XgswQ0jpCWsZ7rwTjZp MlxlcGljTmVzdERvYzE gDQpcbHRycGFyXGxpbj BccmluMFxzYTMwXGVwa UYSz6IeFWTFNyowQYOg JApxlgXtKRVwuL0muth gYmxhZGRlciwgYmxhZG LlvkH7rA4bbzihSjJwG 8DiKNCUkBa5dTZnWMJ5 RC1lAwFut41fFVlmGM4 8jUUfFDWohNWoAGX5DK Wlf7N2USYfzeOejEYcl XWuyIRql4BrsD0oVWZy hXU8DoBtvMUgAgBxM81 obG8nUBquslQnCXIsQS LcHEB0ZWfbcIomWuJie GOxj5bpoIF2ZEb0AOF8 FRziKN5sZIZbHWRbZGQ kodQwzPc7TPFcEEU5wT 0xiiIobeDrg9UypMz3e PKuJUgiDPDfNNZ6MyPu XQGia9RiA7V3NDRzWXl ub7xeWHTwONynk5HzYS jNUDBQPD9FRI7ztPA6J AxGH9AMG6eSkBXfBLR6 eDJ1WWNDEmiheAW6yGT 7yW95VOQiHCWstCQtIN rwJ561TDE1GAZqBFudk 6vmQORtFAagi2BkQLsN QXKEAO6LOW6qfOX1AEw NA6VPMNnhIWGuScyxoL QDQZB0GSeciMaygHr4r 8nncBMxo7t1AMjkWWW3 fVxwbGFpblxsdHJjaFx fzkCxWX4LSSVzwRRFEK Y6ZC3wXQgvECDtP5SnA 3CjfrQ4p7dxkJvtu3Em oGMwSY8ewRToGZ8VWSA hcmQgDQpcZnMyMiANCn 0= [employer](s) (test i1fmpIEuUHHbcGZmZFY code = 9841) wNlxhbnNpXHNwbHRwZ3 HnbuykGFcjPZ9vGX7fj GxhdHRveWVuXGRlZmYw s0ixj682cCHql4hcEBP KygyhbPo7dKctC42mc7 I3GqpmD86mkEJbGZI2J TIyNDBccGFwZXJoMTU4 ZMYjqPYiG2icJGYjGR2 hcmdyMTgwMFxtYXJndD Q2FHQfaZGgV2GcJAFaF AdhEZJegyf8EbHpIs8b dGVyeTcyMFxwYXJkXHB sYWluXGZzMjAgVHVtb3 A5TVQtMZVlaq6= Disclaimer (test code = w9vxtTOeMXFadWFdMuH 9844) qEPMfDBFim5yrIOIupQ FuZzEwMzNcZnRuYmpcd QVgFHKqVpRes5kty085 yBDvy7jzTJCmPjQ5iLB vDXCkpYWqG164AIKrBM ukr6ycg3VqIPVmhGDlg 3X5JRPLxesgcYs6rQko Q82mg8P0IpncD3lwHZG nDIYzT8BqVH0dBYYcWj r5GGR9IMK7WPNpXJVdX 6IjNA4eNNHqzAQnFBq7 j5uhrBjmDUDcLXK0c6u uXNnwevIkNU2ddv3hnK f2q2spsxKxPKUaYZKni TTBDWXbN5EnqKusLs3t mIx1xZmiTwiaRJA5Lny 6DJ1wjp65bhj6oWqbKI NfhhmlSeK0RKbyPPHje djdLXi4ROgxFJXupKG1 OKCszZHhF1SsRVRwZH3 hlsn2NZW9SCvkJTMgKh I7OYLtaMQcGANwzUmyG Smus429ZSS6AzRpPT2z J0Ddb2H8xX5mnNUdUMQ ezHScDhIuQHWqdo6qyN IhNGdxd1EjYFP7qyI9g WRakRAxIQByGB77Ruio f8NsJtctKVL8ALItzmG sp5Hit0zkZnVezwFyY3 gdS5CgRBNuQFVkBKFwA wSqyaZmv8Lep1NwkULc kUc5v9bgPRTcIBAtbRc cl7okPWX3IRZjI3W1gT Abj1etYEpbVYGapNT1t pG3CQGtaBNeK8RbcU2c LYUcJE2potw0d0wpLAE 3HNweSQXoWhJ3qkB5MZ BcaGVhZGVyeTcyMFxmb 474HLL9AsQzYUZdk0Yv V1LqkMgeP02ljThnG84 pSRJpkHyquZ2svSdbiL 5cZjBcZnMyNFxxbFxwb RLcarfgDHbgsdV1KVis axyzDPWoSZcgC3uiOfZ qMUFtvClgPTtzo6JbMS ByWSViCbyopzQ3ZQJEu 42dHMAyy6SwPXOboM7u lAEpPIwrlwCfdGN1CPc hdmUgYmVlbiBkZXZlbG 0cVLOuTT2rYXYauxOtz b2vjuNjJYJjYNZuW4Wt cmlzdGljcyBkZXRlcm1 vbsUmDYD2CBKUVS2PMH IqJQYhp91mXBYvtBura F1apXHdjhHlHOSlg4Ui iC6smBZWXJKkV8hxUO2 uSHsbc4AxqWYrqSKsrX X6SACpk4SbHqSmiwGdq HZvsWGyH1ZloRxrN9sa IXYfXQJnbyHpfBNaq4V gGOBixOQ0eHJkMO6OHj UVx67yLWDuBUCMlyWiQ PMlrNsciKY1twD6pU4v LiBJZiBhcHBsaWNhYmx eLRYed869om0rywW2SR XyWARgrwfvk0JnBIQtZ HKfuY61JUAeAQTrcm7w ofrdvTHhhlPeD1Orcyx 1nC8rBTMfBAkzJRZpMZ ZzMjJcbGFuZzEwMzNca GljaFxmMVxkYmNoXGYx WAlgM9xdFpCxFxVhKry wYXJ9 [facility] PCR- Asymptomatic [id number] 21:24:20 Test Item Value Reference Range Interpretation Comments COVID19 (SARS Not Detected Not Detected CoV-2) Result (test code = ____This test i s a 05294-4) qualitative reverse-transcr iptase polymerase vida n reaction (RT-PC R) developed for t he [employer] 680 0 system and inte nded for qualitative detection of SA RS CoV-2 RNA in nasopharyngeal and oropharyngeal s wab specimens colle cted from any indivi duals, including those suspected of CO VID-19 by their health care provider, and t hose without symptom s or other reasons t o suspect COVID-1 9. A fact sheet for patients provid ed by the manufacture r ([employer]) c an be reviewed at:https://www. fda.go v/media/852056/ downlo ad. A fact shee t for Health Care pro viders is provided by the wrapper stemmer hand ([employer]) and can be reviewed at: https://www.fda .gov/m edia/311218/debra nload Results must be interpreted wit hin the context of all relevant clinic al and laboratory find ings and should not form the sole basis for a diagnosis or treatment decis ion. Positive result s do not rule out bacterial infec tion or co-infection with other viruses. Negative result s do not rule out SARS-CoV-2 and must be combined wit h clinical observations, p atient history, and/or epidemiological information. "Presumptive Positive" resul ts are due to partial amplification o f SARS-CoV-2 targ ets and indicates l ow amounts of viru s present in the specimen at or near the limit of detection. Regardless, individuals wit h "Presumptive Positive" resul ts should be manag ed per institutional guidelines as individuals pos itive for SARS-CoV-2 virus, including use o f appropriate inf ection control protoco ls. Internal contro ls are included to ass ess for possible amplification inhibitors. If inhibition is detected, testi ng is repeated and if inhibition is confirmed the specimen is res ulted as "Invalid". W hen an "Invalid" resul t occurs, it is recommended to wait 3 days before submitting a ne w specimen for te sting if clinically indicated. This assay has been approv ed by the FDA for use only under Emergency Use Authorization ( EUA) in laboratories that have been CLIA-certified to perform moderate-comple xity and high-comple xity tests. The performance characteristics of this assay were verified by the [facility] at [facility], CLIA Accreditation # : [id number] and CAP Accreditation # : [id number]. COVID19 SARS BILINGUAL MEDICAL RECEPTIONIST Swab Source (test code = 69984) COVID19 SARS Pre-OR Procedure Indication (test code = 31657) [facility] PCR- Asymptomatic [id number] 22:02:15 Test Item Value Reference Range Interpretation Comments COVID19 (SARS Not Detected Not Detected CoV-2) Result (test code = ____[place] a 29993-7) qualitative reverse-transcr iptase polymerase vida n reaction (RT-PC R) developed for t he Charanjit NATACHA 680 0 system and inte nded for qualitative detection of SA RS CoV-2 RNA in nasopharyngeal and oropharyngeal s wab specimens colle cted from any indivi duals, including those suspected of CO VID-19 by their health care provider, and t hose without symptom s or other reasons t o suspect COVID-1 9. A fact sheet for patients provid ed by the manufacture r ([employer]) c an be reviewed at:https://www. fda.go v/media/099414/ downlo ad. A fact shee t for Health Care pro viders is provided by the wrapper stemmer hand ([employer]) and can be reviewed at: https://www.fda .gov/m edia/519412/debra nload Results must be interpreted wit hin the context of all relevant clinic al and laboratory find ings and should not form the sole basis for a diagnosis or treatment decis ion. Positive result s do not rule out bacterial infec tion or co-infection with other viruses. Negative result s do not rule out SARS-CoV-2 and must be combined wit h clinical observations, p atient history, and/or epidemiological information. "Presumptive Positive" resul ts are due to partial amplification o f SARS-CoV-2 targ ets and indicates l ow amounts of viru s present in the specimen at or near the limit of detection. Regardless, individuals wit h "Presumptive Positive" resul ts should be manag ed per institutional guidelines as individuals pos itive for SARS-CoV-2 virus, including use o f appropriate inf ection control protoco ls. Internal contro ls are included to ass ess for possible amplification inhibitors. If inhibition is detected, testi ng is repeated and if inhibition is confirmed the specimen is res ulted as "Invalid". W hen an "Invalid" resul t occurs, it is recommended to wait 3 days before submitting a ne w specimen for te sting if clinically indicated. This assay has been approv ed by the FDA for use only under Emergency Use Authorization ( EUA) in laboratories that have been CLIA-certified to perform moderate-comple xity and high-comple xity tests. The performance characteristics of this assay were verified by the [facility] at [facility], CLIA Accreditation # : [id number] and CAP Accreditation # : [id number]. COVID19 SARS BILINGUAL MEDICAL RECEPTIONIST Swab Source (test code = 10775) COVID19 SARS Pre-OR Procedure Indication (test code = 66805) [facility] [id number] 17:24:49 Test Item Value Reference Range Interpretation Comments Final Report (test code = 8488) No growth [facility] [id number] 17:24:49 Test Item Value Reference Range Interpretation Comments Final Report (test code = 8488) No growth [facility] Microscopic Exam 2023-01-12 23:21:41 Test Item Value Reference Range Interpretation Comments UA WBC (test code = See_Comment H Some rep orting 63536-2) parameters with in the Urinalysis test have changed due to the implementation of new instrumentation in the [facility] sensiti vity of measurement. Urinalysis resu lts reported by the [facility] C enters using existing instrumentation , as well as Urinaly sis testing perform ed manually or by backup methodology at the [facility] l remain relative ly unchanged. New reporting nico eters and units will not be reported for [facility] campuses. [Auto mated message] The sy stem which generated this result transmit oksana reference range : 0 - 2 /HPF. The refer ence range was not u sed to interpret this result as normal/abnor mal. UA RBC (test code = See_Comment H [Automa oksana message] 08749-7) The system [employer] generated this result transmitted ref erence range: 0 - 2 /H PF. The reference range was not used to int erpret this result as normal/abnormal . UA Mucous (test code = NOT SEEN Not Seen-Trace 39597-4) /HPF UA Bacteria (test code NOT SEEN NOT SEEN /HPF = 44064-3) UA Squam Epi (test NOT SEEN None-Occasional code = 20834-3) /HPF UA WBC Clump (test OCC NOT SEEN /HPF A code = 45787-9) Lab Interpretation Abnormal (test code = 99828-1) [facility] Ex[facility] 2023-01-12 23:21:41 Test Item Value Reference Range Interpretation Comments UA WBC (test code = See_Comment H Some rep orting 82777-1) parameters with in the Urinalysis test have changed due to the implementation of new instrumentation in the [facility] sensiti vity of measurement. Urinalysis resu lts reported by the [facility] enters using existing instrumentation , as well as Urinaly sis testing perform ed manually or by backup methodology at the [facility] michael l remain relative ly unchanged. New reporting nico eters and units will not be reported for al l campuses. [Auto mated message] The sy stem which generated this result transmit oksana reference range : 0 - 2 /HPF. The refer ence range was not u sed to interpret this result as normal/abnor mal. UA RBC (test code = See_Comment H [Automa oksana message] 16711-9) The system [employer] generated this result transmitted ref erence range: 0 - 2 /H PF. The reference range was not used to int erpret this result as normal/abnormal . UA Mucous (test code = NOT SEEN Not Seen-Trace 27014-3) /HPF UA Bacteria (test code NOT SEEN NOT SEEN /HPF = 51418-8) UA Squam Epi (test NOT SEEN None-Occasional code = 56654-3) /HPF UA WBC Clump (test OCC NOT SEEN /HPF A code = 40787-7) Lab Interpretation Abnormal (test code = 41142-4) [facility] w/Microscopic if Ivydsfcmn8071-15-13 22:42:01 Test Item Value Reference Range Interpretation Comments UA Color (test code = 59835-7) Yellow Straw-Yellow UA Appear (test code = 23697-0) Cloudy Clear A UA Glucose (test code [...] A Lab Interpretation (test code = Abnormal 42229-9) [facility] w/Microscopic if [id number] 22:42:01 Test Item Value Reference Range Interpretation Comments UA Color (test code = 18713-3) Yellow Straw-Yellow UA Appear (test code = 77633-0) Cloudy Clear A UA Glucose (test code [...] A Lab Interpretation (test code = Abnormal 13377-3) [facility] DistrictaPTT2023-03-16 22:24:12 Test Item Value Reference Range Interpretation Comments aPTT (test code = 28.7 See_Comment [Automate d message] The 83396-8) system which ge nerated this result transmit oksana reference range : 22.8 - 34.2 second(s). The reference range was not used to interpr et this result as anuel l/abnormal. [facility] DistrictaPTT2023-03-16 22:24:12 Test Item Value Reference Range Interpretation Comments aPTT (test code = 28.7 See_Comment [Automate d message] The 88982-7) system which ge nerated this result transmit oksana reference range : 22.8 - 34.2 second(s). The reference range was not used to interpr et this result as anuel l/abnormal. [facility] DistrictProthrombin Time with [id number] 22:24:11 Test Item Value Reference Range Interpretation Comments PT (test code = 13.8 See_Comment [Automated message] The 5902-2) system which ge nerated this result transmit oksana reference range : 11.9 - 14.1 second(s). The reference range was not used to interpr et this result as anuel l/abnormal. INR (test code = 1.06 0.89-1.10 6301-6) [facility] DistrictFractionated [id number] 22:13:44 Test Item Value Reference Range Interpretation [...] <=0.3 Indocyanin e Green (ICG) code = 1968-04) may cause fal sely elevated biliru bin results. Total and direct bilirubin must not be measured from s amples containing indo cyanine green. Bili Indirect (test See Note 0.0-0.9 Unable t o calculate code = 1970-10) Indirect Bili fowler result due to some par ameters are outside rep ortable range [facility] DistrictPhosphorus Ilcwq0571-01-90 22:13:42 Test Item Value Reference Range Interpretation Comments Phosphorus (test code = 2777-1) 3.3 mg/dL 2.5-4.5 [facility] DistrictCalcium Zozyp2027-34-62 22:13:40 Test Item Value Reference Range Interpretation Comments Calcium Lvl (test code = 69264-8) 10.4 mg/dL 8.4-10.2 H Lab Interpretation (test code = Abnormal 59672-9) [facility] DistrictGlomerular Filtration Rate 2023-01-12 22:13:39 Test Item Value Reference Range Interpretation Comments eGFR (test code = 58 See_[place] [address]-5) calculated with the 2020 CKD-EPI cr eatinine equation using creatinine, pat ient's age, and sex fo r adults 18 years of age and older. Other fa ctors, especially musc le mass, may affect accu racy and need to be considered.Acco rding to the Kidney Dise ase: Improving Globa l Outcomes (KDIGO ) CKD Work Group 2012 Clinical Practi ce Guideline, dope mixer corine kidney disease (CKD) is defined as the abnormalities o f kidney structure or fu nction, present for mor e than 3 months, with implications fo r health. CKD denisse uld be classified by c sarah, GFR category, a nd albuminuria cat egory. [...] . Lab Interpretation Abnormal (test code = 82153-7) [facility] DistrictAlbumin Melgj1152-04-42 22:13:38 Test Item Value Reference Range Interpretation Comments Albumin Lvl (test code 4.1 See_Comment [Aut omated message] The = 1751-7) system which ge nerated this result tra nsmitted reference range : 3.5 - 5.2 gm/dL. The refe rence range was not used to interpret this result as normal/abnormal . [facility] DistrictTotal Mesolde7495-60-03 22:13:37 Test Item Value Reference Range Interpretation Comments Total Protein (test code = 2885-2) 7.5 g/dL 6.4-8.3 [facility] DistrictAspartate Aminotransferase 2023-01-12 22:13:36 Test Item Value Reference Range Interpretation Comments AST (test code = 1920-8) 13 U/L <=40 [facility] DistrictMagnesium Adrvk2807-11-99 22:13:35 Test Item Value Reference Range Interpretation Comments Magnesium (test code = 97438-6) 2.2 mg/dL 1.6-2.6 [facility] DistrictElectrolyte [id number] 22:13:34 Test Item Value Reference Range Interpretation [...] to interpret this result as normal/abnormal . [facility] DistrictAlkaline Rrvrtigknka0325-05-80 22:13:33 Test Item Value Reference Range Interpretation Comments Alk Phos (test code = 6768-6) 55 U/L 40-129 [facility] DistrictGlucose Mtesw0082-23-70 22:13:32 Test Item Value Reference Range Interpretation [...] diabetes Lab Interpretation (test Abnormal code = 59321-5) [facility] DistrictALT2023-03-16 22:13:31 Test Item Value Reference Range Interpretation Comments ALT (test code = 1742-6) 13 U/L <=41 [facility].Serum Okizpgzmqq2976-43-11 22:13:30 Test Item Value Reference Range Interpretation Comments Creatinine (test code = 2160-0) 1.38 mg/dL 0.67-1.17 H Lab Interpretation (test code = Abnormal 73623-2) [facility] DistrictBUN2023-03-16 22:13:29 Test Item Value Reference Range Interpretation Comments BUN (test code = 3094-0) 22 mg/dL 6-23 [facility] DistrictDifferential2023-03-16 21:45:39 Test Item Value Reference Range Interpretation [...] % 0.0-0.4 H IGRE % c ount 94252-4) includes Metamyelocytes, Myelocytes, and Promyelocytes. Neutrophil Abs (test code 11.20 K/uL 1.70-7.30 H = 751-8) Lymphocyte Abs (test code 1.98 K/uL 1.00-4.80 = 731-0) Monocyte Abs (test code = 1.39 K/uL 0.08-0.70 H 742-7) Eosinophil Abs (test code 0.64 K/uL 0.04-0.40 H = 711-2) Basophil Abs (test code = 0.08 K/uL 0.00-0.10 704-7) IG Abs (test code = 0.08 K/uL 0.00-0.04 H 47207-4) Lab Interpretation (test Abnormal code = 66810-4) [facility].[id number] 21:45:34 Test Item Value Reference Range Interpretation Comments WBC (test code = 15.4 K/uL 4.0-11.0 H 6690-2) RBC (test code = 789-8) 5.08 See_Comment [Au tomated message] The system [employer] generated this result transmitted ref erence range: 4.50 - 6 .00 M/uL. The refer ence range was not u sed to interpret this result as normal/abnor mal. Hgb (test code = 718-7) 14.8 See_Comment [Au tomated message] The system [employer] generated this result transmitted ref erence range: 14.0 - 1 8.0 gm/dL. The refe rence range was not u sed to interpret this result as normal/abnor mal. Hct (test code = 45.2 % 40.0-54.0 4544-3) MCV (test code = 787-2) 89 fL 82-98 MCH (test code = 785-6) 29.1 pg 27.0-31.0 MCHC (test code = 32.7 See_Comment [Automate d message] 786-4) The system [employer] generated this result transmitted ref erence range: 31.0 - 3 6.0 gm/dL. The refe rence range was not u sed to interpret this result as normal/abnor mal. RDW-SD (test code = 42.6 fL 35.1-46.3 69054-1) RDW-CV (test code = 13.1 % 12.0-15.5 788-0) Platelet count (test 441 K/uL 140-440 H code = 777-3) MPV (test code = 9.5 fL 4.0-10.4 74408-9) INRBC (test code = 0.0 % <=0.0 The INRBC (instrument 76987-1) NRBC) value ref lects the enumeration of nucleated red b lood cells contained in a 200uL sampleof whole blood analyzed by the instrument. Thi s value maydiffer from the NRBC value reported in a m anual differential,wh ich is based on a 100 cell differential. Lab Interpretation Abnormal (test code = 70451-5) [facility]
[2023-02-23] MEDS ORDERED: HYDROMORPHONE HCL 1 MG/ML INJ ONE (23:06)
[2023-02-23] MEDS ORDERED: ONDANSETRON 4 MG/2 ML VIAL ONE (23:06)
[2023-02-23] MEDS ORDERED: NA CHLORIDE 0.9% 1,000 ML ONE (23:06)
[2023-02-23] MEDS ORDERED: dexAMETHasone 10 MG/ML VIAL ONE (23:06)
[2023-02-23 23:36] LABS: Absolute Lymphocytes (CBC) 0.7 K/uL (0.7-4.9); Hematocrit 35.2 % (39.6-49.0); MCV 82.7 fL (80-100); RBC Red Blood Cell Count 4.25 M/uL (4.33-5.43)
[2023-02-23 23:47] LABS: Albumin 2.3 g/dL (3.4-5.0); Bilirubin Total 0.4 mg/dL (0.2-1.0); Potassium 3.7 mEq/L (3.5-5.1); Protein, Total 6.7 g/dL (6.4-8.2)
[2023-02-24 00:47] LABS: Blood Morphology Comment NOT SEEN (NOT SEEN); Platelet Estimate ADEQ
[2023-02-24 01:25] LABS: Renal Epithelial <5 /HPF (None Seen); Transitional Epithelial <5 /HPF (None Seen); Urine Bacteria None Seen /HPF (<20); Urine Bilirubin NEGATIVE (Negative); Urine Blood Negative (Negative); Urine Clarity Turbid (Clear); Urine Color Yellow (Yellow); Urine Glucose NEGATIVE (Negative); Urine Mucus Slight /HPF (None Seen); Urine Protein 1+ (Negative); Urine RBC <5 /HPF (None Seen); Urine Urobilinogen Normal (Normal); Urine WBC Clump Rare /HPF (None Seen); Urine pH 5.5 (5.0-7.0)
--- NOTE | 2023-02-24 02:05 | EDPHYS ---
Physician Documentation [facility] Name: Chau Rubio Age: 63 yrs Sex: Male : 1960 Arrival Date: 02/23/2023 Time: 21:04 Bed 14 Private MD: Keith Burns HPI: 02/23 22:50 This 63 yrs old Male presents to ER via Wheelchair with complaints of Fever, Low Back cp Pain, Leg Pain. 22:50 The patient reports fever, that was measured at 100.5 degrees Fahrenheit. cp 22:50 Onset: The symptoms/episode began/occurred today. Associated signs and symptoms: cp Pertinent positives: chills. 22:50 Severity of symptoms: in the emergency department the symptoms are unchanged despite home interventions. 22:50 reports patient had biopsy of bladder mass performed by physician on 02-10-2023 at [facility] [place]. Historical: - Allergies: 21:13 PENICILLINS; mb9 - Home Meds: 21:13 metformin 500 mg Oral tab 1 tab nightly [Active]; mb9 - PMHx: 21:13 CANCER - PROSTATE; Diabetes - NIDDM; High Cholesterol; Kidney stones; mb9 - PSHx: 21:13 left knee; hernia; mb9 - Immunization history:: Adult Immunizations up to date. - Social history:: Smoking status: Patient denies any tobacco usage or history of. ROS: 22:55 Constitutional: Positive for body aches, chills, Negative for fever, poor PO intake. cp 22:55 Eyes: Negative for injury, pain, redness, and discharge. cp 22:55 ENT: Negative for drainage from ear(s), ear pain, sore throat, difficulty swallowing, difficulty handling secretions. 22:55 Cardiovascular: Negative for chest pain, edema, palpitations. 22:55 Respiratory: Negative for cough, shortness of breath, wheezing. 22:55 Abdomen/GI: Negative for vomiting, diarrhea, constipation. 22:55 Back: Positive for pain at rest, pain with movement. 22:55 MS/extremity: Positive for pain, of the right buttock and posterior aspect right leg, Negative for injury or acute deformity, decreased range of motion, paresthesias. 22:55 Skin: Negative for cellulitis, rash. 22:55 Neuro: Positive for weakness, Negative for headache. 22:55 All other systems are negative. Exam: 23:00 Constitutional: The patient appears in no acute distress, alert, awake, cp non-diaphoretic, well developed, well nourished, obviously ill, uncomfortable. 23:00 Head/Face: Normocephalic, atraumatic. cp 23:00 Eyes: Periorbital structures: appear normal, Conjunctiva: normal, no exudate, no injection, Sclera: no appreciated abnormality, Lids and lashes: appear normal, bilaterally. 23:00 ENT: External ear(s): are unremarkable, Nose: is normal, Mouth: Lips: moist, Oral mucosa: pink and intact, moist, Posterior pharynx: is normal, airway is patent, no erythema, no exudate. 23:00 Neck: ROM/movement: is normal, is supple, without pain, no range of motions limitations, no meningismus, no nuchal rigidity. 23:00 Chest/axilla: Inspection: normal, Palpation: is normal, no crepitus, no tenderness. 23:00 Cardiovascular: Rate: tachycardic, Rhythm: regular, Edema: is not appreciated, JVD: is not appreciated. 23:00 Respiratory: the patient does not display signs of respiratory distress, Respirations: normal, no use of accessory muscles, no retractions, labored breathing, is not present, Breath sounds: are clear throughout, no decreased breath sounds, no stridor, no wheezing. 23:00 Abdomen/GI: Inspection: abdomen appears normal, Bowel sounds: active, all quadrants, Palpation: soft, in all quadrants, mild abdominal tenderness, in the suprapubic area, rebound tenderness, is not appreciated, involuntary guarding, is not appreciated. 23:00 Back: pain, that is severe, ROM is painful, with all movement, Straight leg raises: of both lower extremities does not illicit pain. 23:00 Skin: cellulitis, is not appreciated, no rash present. 23:00 Neuro: Orientation: to person, place \T\ time. Mentation: able to follow commands, slow to respond, Motor: moves all fours, strength is normal, Sensation: no obvious gross deficits. 02/24 02:35 ECG was reviewed by the Attending Physician. cp Vital Signs: 02/23 21:12 BP 125 / 60; Pulse 106; Resp 20; Temp 99.1; Pulse Ox 97% on R/A; Weight 79.38 kg; mb9 Height 5 ft. 8 in. ; Pain 10/10; 23:24 BP 126 / 79; Pulse 104; Resp 18; Pulse Ox 99% on R/A; aa9 02/24 00:13 BP 129 / 93; Pulse 89; Resp 17 S; Pulse Ox 95% ; aa9 00:13 BP 135 / 78; Pulse 68; Resp 16; Pulse Ox 99% ; aa9 00:19 BP 129 / 93; Pulse 108; Resp 16 S; Pulse Ox 94% on 2 lpm NC; aa9 00:37 Temp 99.3(O); aa9 01:40 BP 137 / 79; Pulse 96; Resp 18; Pulse Ox 99% ; aa9 02:04 BP 147 / 98; Pulse 102; Resp 17 S; Pulse Ox 99% on R/A; aa9 02:51 BP 121 / 87; Pulse 98; Resp 18; Temp 98.9(O); Pulse Ox 96% on 4 lpm NC; aa9 03:02 BP 116 / 88; Pulse 98; Resp 17; Pulse Ox 99% on 5 lpm NC; aa9 02/23 21:12 Body Mass Index 26.61 (79.38 kg, 172.72 cm) [facility] 02/23 21:12 Pain Scale: Adult [facility] MDM: 02/23 21:16 Patient medically screened. 02/24 00:00 Differential diagnosis: viral Infection, bacterial infection, pneumonia UTI, gastroenteritis, meningitis. 03:00 Data reviewed: vital signs, nurses notes, lab test result(s), EKG, radiologic studies, CT scan, ultrasound. 03:00 I considered the following discharge prescriptions or medication management in the emergency department Medications were administered in the Emergency Department. See MAR. Historians other than the Patient: Spouse/Significant Other: provides HPI. Care significantly affected by the following chronic conditions: Diabetes. Counseling: I had a detailed discussion with the patient and/or guardian regarding: the historical points, exam findings, and any diagnostic results supporting the discharge/admit diagnosis, lab results, radiology results, the need to transfer to another facility, for higher level of care. Response to treatment: the patient's symptoms have mildly improved after treatment. 02/23 22:40 Order name: Urinalysis W/Microscopic; Complete Time: 01:43 02/24 01:43 Interpretation: Normal except: UCLA Turbid; UPROT 1+; UESTR 500; UWBC >50. 02/23 22:40 Order name: CBC with Diff; Complete Time: 01:09 02/24 01:10 Interpretation: Normal except: WBC 22.90; RBC 4.25; HGB 11.3; HCT 35.2; MCH 26.6; PLT cp 445; GLORIA% 81.7; LYM% 3.0; EOSINOPHIL % 11.9; NEUT A 18.7; EOSA 2.7. 02/23 22:40 Order name: CMP; Complete Time: 01:09 02/24 01:10 Interpretation: Normal except: NA 133; GLUC 146; BUN 31; GFR 87; ALB 2.3; GLOB 4.4; A/G cp 0.5. 02/23 22:40 Order name: Lipase; Complete Time: 01:09 02/23 22:40 Order name: Lactate w/ 2H reflex if indic.; Complete Time: 01:09 02/23 23:40 Order name: Manual Differential; Complete Time: 01:09 [facility] 02/24 01:10 Interpretation: Normal except: BANDS [F] 12; LYM 6; EOS 6. 02/24 01:14 Order name: Blood Culture Adult (2) 02/24 01:43 Order name: Urine Culture [facility] 02/24 02:05 Order name: SARS RAPID; Complete Time: 05:20 02/23 22:42 Order name: US Extremity Venous Unilateral Ltd 02/23 22:42 Order name: US Lower Extremity Artery Uni Ltd 02/24 01:15 Order name: CT Stone Protocol 02/24 02:09 Order name: EKG; Complete Time: 02:09 02/23 22:40 Order name: IV Saline Lock; Complete Time: 23:10 02/23 22:40 Order name: Labs collected and sent; Complete Time: 23:10 02/24 02:09 Order name: EKG - Nurse/Tech; Complete Time: 02:33 cp EC:35 Rate is 94 beats/min. Rhythm is regular. [place] interval is normal. QRS interval is cp prolonged at 112 msec. QT interval is normal. T waves are Inverted in lead aVR. Interpreted by me. Reviewed by me. Administered Medications: 02/23 23:24 Drug: Ondansetron IVP 4 mg Route: IVP; Site: left antecubital; 9 02/24 01:17 Follow up: Response: No adverse reaction 02/23 23:24 Drug: HYDROmorphone IVP 1 mg Route: IVP; Site: left antecubital; 9 02/24 01:17 Follow up: Response: No adverse reaction; Pain is decreased 02/23 23:24 Drug: NS 0.9% IV 500 ml Route: IV; Rate: bolus; Site: left antecubital; aa9 02/24 01:17 Follow up: Response: No adverse reaction; IV Status: Completed infusion; IV Intake: aa9 500ml 02/23 23:24 Drug: NS 0.9% IV 500 ml Route: IV; Rate: 125 ml/hr; Site: left antecubital; 9 02/24 03:07 Follow up: Response: No adverse reaction; IV Status: Completed infusion; IV Intake: aa9 500ml 02/23 23:24 Drug: Decadron - Dexamethasone IVP 10 mg Route: IVP; Site: left antecubital; 9 02/24 01:17 Follow up: Response: No adverse reaction aa9 02:40 Drug: Diazepam IVP 5 mg Route: IVP; Site: left antecubital; aa9 03:07 Follow up: Response: No adverse reaction aa9 02:49 Drug: HYDROmorphone IVP 1 mg Route: IVP; Site: left antecubital; aa9 03:07 Follow up: Response: No adverse reaction aa9 02:50 Drug: NS 0.9% IV 1000 ml Route: IV; Rate: 125 ml/hr; Site: left antecubital; aa9 07:03 Follow up: Response: No adverse reaction; IV Status: Infusion continued upon transfer aa9 03:35 Drug: Rocephin IV 1 grams Route: IV; Rate: calculated rate; Site: left antecubital; aa9 05:08 Follow up: Response: No adverse reaction; IV Status: Completed infusion; IV Intake: aa9 100ml 03:36 Drug: Cefepime IVPB 1 grams Route: IVPB; Rate: 200 ml/hr; Infused Over: 30 mins; Site: aa right hand; 05:08 Follow up: Response: No adverse reaction; IV Status: Completed infusion; IV Intake: aa9 100ml 04:30 Drug: vancoMYCIN IVPB 1 grams Route: IVPB; Infused Over: 2 hrs; Site: right hand; aa9 06:30 Follow up: Response: No adverse reaction; IV Status: Completed infusion; IV Intake: aa9 250ml 07:03 Not Given (Physician Discretion): HYDROmorphone IVP 1 mg IVP once aa9 Disposition Summary: 02/24/23 04:02 Transfer Ordered Transfer Location: Other Acute Care Facility(02/24/23 04:02) cp Reason: Higher level of care(02/24/23 04:02) cp Condition: Stable(02/24/23 04:02) cp Problem: new(02/24/23 04:02) cp Symptoms: have improved(02/24/23 04:02) cp Accepting Physician: Doctor(02/24/23 07:04) aa9 Diagnosis - Sepsis, unspecified organism(02/24/23 04:02) cp - UTI/ Urinary tract infection, site not specified(02/24/23 04:02) cp - Right Pelvis Hematoma vs Abscess cp - Elevated white blood cell count phong - Bandemia phong Forms: - Medication Reconciliation Form cp - SBAR form cp Signatures: Dispatcher [employer] EDKeith Grant MD MD cha Page, Corey, PA PA cp Valerie Khan, RN RN aa9 Zari Arreaga RN RN mb9 Corrections: (The following items were deleted from the chart) 01:45 02/23 22:50 The patient reports fever, that was measured at 100.3 degrees Fahrenheit, cpcp 02/24 02:36 02:04 Doctor cp cp 02:36 02:04 Other Acute Care Facility cp cp 02:36 02:04 Higher level of care cp cp 02:36 02:04 Stable cp cp 02:36 02:04 new cp cp 02:36 02:04 have improved cp cp 02:36 02:04 Sepsis, unspecified organism cp cp 02:36 02:04 UTI/ Urinary tract infection, site not specified cp cp 03:08 01:45 Onset: The symptoms/episode began/occurred today, cp cp 03:08 01:45 Associated signs and symptoms: Pertinent positives: chills, cp cp 05:21 04:02 Doctor kendra phong 05:21 05:21 Doctor phong darling 05:21 05:21 Elevated white blood cell count, unspecified phong darling 07:04 05:21 Doctor phong aa9
--- NOTE | 2023-02-24 02:05 | ER ---
Nurse's Notes [facility] Name: Chau Rubio Age: 63 yrs Sex: Male : 1960 Arrival Date: 02/23/2023 Time: 21:04 Bed 14 Private MD: Diagnosis: Sepsis, unspecified organism;UTI/ Urinary tract infection, site not specified;Right Pelvis Hematoma vs Abscess;Elevated white blood cell count;Bandemia Presentation: 02/23 21:11 Chief complaint: Patient states: "He had an 100.5 fever at home and severe pain in his mb9 right butt cheek that radiates down his right leg. It feels like someone is stabbing me". Risk Assessment: Do you want to hurt yourself or someone else? Patient reports no desire to harm self or others. 21:11 Method Of Arrival: Wheelchair mb9 21:11 Acuity: ABRAHAN 3 mb9 21:12 Coronavirus screen: Vaccine status: Patient reports receiving the 2nd dose of the covid mb9 vaccine. Ebola Screen: No symptoms or risks identified at this time. Initial Sepsis Screen: Does the patient meet any 2 criteria? No. Patient's initial sepsis screen is negative. Does the patient have a suspected source of infection? No. Patient's initial sepsis screen is negative. Onset of symptoms was February 23, 2023. Triage Assessment: 21:14 General: Appears uncomfortable, Behavior is calm, cooperative. Pain: Complains of pain mb9 in buttocks and right leg Quality of pain is described as sharp, stabbing. Cardiovascular: Patient's skin is warm and dry. Respiratory: Airway is patent Respiratory effort is even, unlabored, Respiratory pattern is regular, symmetrical. Derm: Skin is pink, warm \\T\\ dry. Historical: - Allergies: 21:13 PENICILLINS; mb9 - Home Meds: 21:13 metformin 500 mg Oral tab 1 tab nightly [Active]; mb9 - PMHx: 21:13 CANCER - PROSTATE; Diabetes - NIDDM; High Cholesterol; Kidney stones; mb9 - PSHx: 21:13 left knee; hernia; mb9 - Immunization history:: Adult Immunizations up to date. - Social history:: Smoking status: Patient denies any tobacco usage or history of. Screenin:15 [facility] ED Fall Risk Assessment (Adult) History of falling in the last 3 months, mb9 including since admission No falls in past 3 months (0 pts) Confusion or Disorientation No (0 pts) Intoxicated or Sedated No (0 pts) Impaired Gait No (0 pts) Mobility Assist Device Used No (0 pt) Altered Elimination No (0 pt) Score/Fall Risk Level 0 - 2 = Low Risk Oriented to surroundings, Maintained a safe environment, Assessed \\T\\ reinforced patient's understanding of fall precautions. Abuse screen: Denies threats or abuse. Nutritional screening: No deficits noted. Tuberculosis screening: No symptoms or risk factors identified. Assessment: 23:24 General: Appears uncomfortable, slender, Behavior is cooperative, anxious. Pain: aa9 Complains of pain in right leg Pain currently is 10 out of 10 on a pain scale. Neuro: Level of Consciousness is awake, alert, obeys commands, Oriented to person, place, time, situation. Cardiovascular: Rhythm is regular. Respiratory: Airway is patent Respiratory effort is even, unlabored. 02/24 00:00 Reassessment: Patient appears in no apparent distress at this time. Patient is alert, aa9 oriented x 3, equal unlabored respirations, skin warm/dry/pink. 02:03 Reassessment: Patient appears in no apparent distress at this time. paged lab for 2nd [place] set of blood cultures. 02:12 Reassessment: Patient appears in no apparent distress at this time. aaSherice Apolonia Rubio . 06:09 Reassessment: Patient appears in no apparent distress at this time. attempted to call [place] report. 06:19 Reassessment: Patient appears in no apparent distress at this time. report called to antonieta Patton RN. 07:04 Reassessment: Patient appears in no apparent distress at this time. Patient is alert, aa9 oriented x 3, equal unlabored respirations, skin warm/dry/pink. report provided to [facility], at bedside, ems at bedside, understands needs for transfer. Vital Signs: 02/23 21:12 BP 125 / 60; Pulse 106; Resp 20; Temp 99.1; Pulse Ox 97% on R/A; Weight 79.38 kg; mb9 Height 5 ft. 8 in. ; Pain 10/10; 23:24 BP 126 / 79; Pulse 104; Resp 18; Pulse Ox 99% on R/A; aa9 02/24 00:13 BP 129 / 93; Pulse 89; Resp 17 S; Pulse Ox 95% ; aa9 00:13 BP 135 / 78; Pulse 68; Resp 16; Pulse Ox 99% ; aa9 00:19 BP 129 / 93; Pulse 108; Resp 16 S; Pulse Ox 94% on 2 lpm NC; aa9 00:37 Temp 99.3(O); aa9 01:40 BP 137 / 79; Pulse 96; Resp 18; Pulse Ox 99% ; aa9 02:04 BP 147 / 98; Pulse 102; Resp 17 S; Pulse Ox 99% on R/A; aa9 02:51 BP 121 / 87; Pulse 98; Resp 18; Temp 98.9(O); Pulse Ox 96% on 4 lpm NC; aa9 03:02 BP 116 / 88; Pulse 98; Resp 17; Pulse Ox 99% on 5 lpm NC; aa9 02/23 21:12 Body Mass Index 26.61 (79.38 kg, 172.72 cm) [facility] 02/23 21:12 Pain Scale: Adult 9 ED Course: 02/23 21:09 Patient arrived in ED. ja2 21:11 Arm band placed on. mb9 21:12 Triage completed. mb9 21:16 Keith Manzanares PA is PHCP. cp 21:16 [facility] MD is Attending Physician. cp 22:55 Valerie Khan, NATTY is Primary Nurse. aa9 23:10 Inserted saline lock: 20 gauge in left antecubital area, using aseptic technique. Blood ah1 collected. 23:10 Lactate w/ 2H reflex if indic. Sent. ah1 23:10 CBC with Diff Sent. ah1 23:10 CMP Sent. ah1 23:10 Lipase Sent. ah1 23:29 Patient has correct armband on for positive identification. Bed in low position. Call aa9 light in reach. Side rails up X2. Adult w/ patient. Pulse ox on. NIBP on. 23:50 US Extremity Venous Unilateral Ltd In Process Unspecified. EDMS 23:51 US Lower Extremity Artery Uni Ltd In Process Unspecified. EDMS 02/24 02:11 Initiated transfer to [facility] per Pt request, they denied due to being on diversion.wm 02:17 CT Stone Protocol In Process Unspecified. EDMS 02:25 Initiated transfer to BS, then cancelled due to Pt request. wm 02:33 SARS RAPID Sent. aa9 03:07 Kyra initiated transfer to [facility]. wm 03:35 Blood Culture Adult (2) Sent. aa9 04:28 [facility] denied due to capacity. wm 04:36 Initiated transfer to BS, spoke with Shelbie. wm 04:46 Initiated transfer to [facility]. wm 05:15 Both [facility] and [facility] denied due to capacity. wm 05:15 Initiated transfer to [facility]. wm 05:16 Initiated to [facility], denied due to capacity. wm 05:40 Pt accepted for transfer to [facility] by Dr. Jacob Leiva. wm 07:03 No provider procedures requiring assistance completed. Patient transferred, IV remains aa9 in place. Administered Medications: 02/23 23:24 Drug: Ondansetron IVP 4 mg Route: IVP; Site: left antecubital; aa9 02/24 01:17 Follow up: Response: No adverse reaction aa9 02/23 23:24 Drug: HYDROmorphone IVP 1 mg Route: IVP; Site: left antecubital; aa9 02/24 01:17 Follow up: Response: No adverse reaction; Pain is decreased 02/23 23:24 Drug: NS 0.9% IV 500 ml Route: IV; Rate: bolus; Site: left antecubital; 9 02/24 01:17 Follow up: Response: No adverse reaction; IV Status: Completed infusion; IV Intake: aa9 500ml 02/23 23:24 Drug: NS 0.9% IV 500 ml Route: IV; Rate: 125 ml/hr; Site: left antecubital; aa9 02/24 03:07 Follow up: Response: No adverse reaction; IV Status: Completed infusion; IV Intake: aa9 500ml 02/23 23:24 Drug: Decadron - Dexamethasone IVP 10 mg Route: IVP; Site: left antecubital; aa9 02/24 01:17 Follow up: Response: No adverse reaction aa9 02:40 Drug: Diazepam IVP 5 mg Route: IVP; Site: left antecubital; aa9 03:07 Follow up: Response: No adverse reaction aa9 02:49 Drug: HYDROmorphone IVP 1 mg Route: IVP; Site: left antecubital; aa9 03:07 Follow up: Response: No adverse reaction aa9 02:50 Drug: NS 0.9% IV 1000 ml Route: IV; Rate: 125 ml/hr; Site: left antecubital; aa9 07:03 Follow up: Response: No adverse reaction; IV Status: Infusion continued upon transfer aa9 03:35 Drug: Rocephin IV 1 grams Route: IV; Rate: calculated rate; Site: left antecubital; aa9 05:08 Follow up: Response: No adverse reaction; IV Status: Completed infusion; IV Intake: aa9 100ml 03:36 Drug: Cefepime IVPB 1 grams Route: IVPB; Rate: 200 ml/hr; Infused Over: 30 mins; Site: aa right hand; 05:08 Follow up: Response: No adverse reaction; IV Status: Completed infusion; IV Intake: aa9 100ml 04:30 Drug: vancoMYCIN IVPB 1 grams Route: IVPB; Infused Over: 2 hrs; Site: right hand; aa9 06:30 Follow up: Response: No adverse reaction; IV Status: Completed infusion; IV Intake: aa9 250ml 07:03 Not Given (Physician Discretion): HYDROmorphone IVP 1 mg IVP once aa9 Medication: 02/23 21:15 VIS not applicable for this client. mb9 Intake: 02/24 01:17 IV: 500ml; Total: 500ml. aa9 03:07 IV: 500ml; Total: 1000ml. aa9 05:08 IV: 100ml; Total: 1100ml. aa9 05:08 IV: 100ml; Total: 1200ml. aa9 06:30 IV: 250ml; Total: 1450ml. aa9 Outcome: 02:04 ER care complete, transfer ordered by MD. cp 04:02 ER care complete, transfer ordered by MD. cp 07:04 Transferred by ground EMS Transfer form completed. aa9 07:04 Condition: stable 07:04 Instructed on the need for transfer. 07:04 Patient left the ED. aa9 Signatures: Dispatcher [employer] EDMS Keith Manzanares PA PA cp Marsh, Wendy wm Alexander, Jessica ja2 Avalos, Aylin RN RN aa9 Zari Arreaga RN RN mb9 [facility] Corrections: (The following items were deleted from the chart) 02/23 21:13 21:11 Chief complaint: Patient states: "He had an 100.5 fever at home and severe pain mb9 in his right butt cheek that radiates down his right leg." mb9 : 21:11 Chief complaint: mb9 mb9 02/24 04:53 04:28 Initiated transfer to [facility], spoke with Shelbie miles
[2023-02-24] MEDS ORDERED: HYDROMORPHONE HCL 1 MG/ML INJ ONE (02:40)
[2023-02-24] MEDS ORDERED: CEFTRIAXONE 1000 MG/VIAL ONE (02:41)
[2023-02-24] MEDS ORDERED: DIAZEPAM 10 MG/2 ML INJ SYRINGE ONE (02:41)
[2023-02-24] MEDS ORDERED: NA CHLORIDE 0.9% 1,000 ML ONE (02:41)
[2023-02-24 02:56] LABS: SARS-CoV-2 Antigen Rapid Res Negative (Negative)
[2023-02-24] MEDS ORDERED: NA CHLORIDE 0.9% 250 ML ONE (03:22)
[2023-02-24] MEDS ORDERED: VANCOMYCIN 1 GM/VIAL ONE (03:22)
[2023-02-24] MEDS ORDERED: NA CHLORIDE 0.9% 100 ML ONE (03:23)
[2023-02-24] MEDS ORDERED: CEFEPIME 1 GM/VIAL ONE (03:23)
[2023-02-24 07:40] VITALS: TEMP 98.9
[2023-02-24 07:42] VITALS: BP 116/88; O2SAT 99
--- NOTE | 2023-02-25 15:06 | RAD REPORT ---
EXAM DESCRIPTION: CT - Stone Protocol - 02/24/2023 6:29 am CLINICAL HISTORY: Male, 63 years old, back pain COMPARISON: 01/20/2023 TECHNIQUE: CT acquisition of the abdomen and pelvis without contrast. Coronal and sagittal reformatt ed images provided. This exam was performed according to departmental dose-optimization program which includes automated exposure control, adjustment of the mA and/or kV according to patient size, and/o r use of iterative reconstruction technique. FINDINGS: SUPPORTIVE DEVICES: None. LOWER CHEST: Mild basilar scarring/atelectasis. Normal heart size. ABDOMEN AND PELVIS: Lack of intravenous contrast limits evaluation of the abdominal and pelvic viscera and vascular struc tures. Liver: Unremarkable. Gallbladder and bile ducts: Unremarkable. Pancreas: Unremarkable. Spleen: Unremarkable. Adrenal glands: Unremarkable. Kidneys and ureters: Mild to moderate right hydroureteronephrosis without evidence of right-sided sto ne. Nonobstructing stones larger in the left and then right renal collecting systems. Several cystic lesions within both kidneys appear to represent simple cysts and require no further workup. The left ureter is unremarkable. Bladder: The bladder is decompressed with chronic circumferential wall thickening and leftward displa cement. Reproductive organs: Suspected surgically absent prostate. GI tract: Normal caliber without wall thickening. Normal appendix. Distal colonic diverticulosis with out diverticulitis. The rectum is leftward displaced. Lymph nodes: No obvious adenopathy. Peritoneum: No evidence of ascites, fluid collection, or free air. Abdominal wall: An area of prior inflammatory stranding, interval development of a large heterogeneou s solid and cystic lesion which appears extraperitoneal at the right pelvic wall and extending superi yamile along the psoas muscle measuring approximately 11.1 x 12.8 x 12.8 cm TR by AP by CC. Surrounding inflammatory stranding. Postsurgical change of the left inguinal canal. Small right inguinal hernia or lipoma. Vessels: Atherosclerosis without evidence of aneurysm. OSSEOUS: No acute abnormality. Degenerative change of the spine and pelvis. IMPRESSION: 1. The area of inflammation on comparison exam, interval development of a large mixed solid and cystic lesion measuring up to 12.8 cm. Differential considerations include multiloculated a bscess, hematoma, or neoplasm in the setting of presumed prostate cancer and chronic bladder wall thi ckening. Mass effect on adjacent pelvic organs. Further clinical workup is recommended. Surgical or i nterventional consultation should be considered. 2. The pelvic lesion results in mild right obstructive uropathy. 3. Bilateral nonobstructing stones in the renal collecting systems. I communicated the above findings by telephone with ISAAC Manzanares at 02/24/2023 2: 41 AM CDT, who demo nstrated understanding of the above finding(s)/recommendation(s) and provided positive read back of t he communication. Electronically signed by: Robert Brewer MD 02/24/2023 2:41 AM CDT Due to temporary technical issues with the PACS/Fluency reporting system, reports are being signed by the in house radiologists without review as a courtesy to insure prompt reporting. The interpreting radiologist is fully responsible for the content of the report.
--- NOTE | 2023-02-25 15:22 | EKG ---
Test Date: 2023-02-24 Test Time: 02:28:02 [employer] Cutter Finisher: BETHANY MEASUREMENT RESULTS: Intervals: Rate: 94 NE: 152 QRSD: 112 QT: 380 QTc: 475 [place]: P: 48 NE: 152 QRS: -47 T: 38 INTERPRETIVE STATEMENTS: Normal sinus rhythm Left anterior fascicular block Anterior infarct, age undetermined Abnormal ECG Compared to ECG 01/20/2023 19:25:40 Myocardial infarct finding now present Sinus tachycardia no longer present Fusion complex(es) no longer present Electronically Signed On 02-25-23 15:21:22 CDT by Jone Archer
--- NOTE | 2023-02-25 15:28 | RAD REPORT ---
EXAM DESCRIPTION: US - Extremity Venous Uni Ltd - 02/23/2023 11:49 pm CLINICAL HISTORY: Right lower extremity pain. TECHNIQUE: Right lower extremity venous Doppler. COMPARISON: None. FINDINGS: The right common femoral vein, superficial femoral vein, popliteal vein, great saphenous v ein and proximal calf veins demonstrate normal compressibility and color flow. No deep vein thrombosi s is demonstrated. IMPRESSION: Normal. Electronically signed by: Alex Rosas MD 02/24/2023 12:02 AM CDT Due to temporary technical issues with the PACS/Fluency reporting system, reports are being signed by the in house radiologists without review as a courtesy to insure prompt reporting. The interpreting radiologist is fully responsible for the content of the report.
--- NOTE | 2023-02-25 15:42 | RAD REPORT ---
EXAM DESCRIPTION: US - Lower Extremity Artery Uni Ltd - 02/23/2023 11:49 pm CLINICAL HISTORY: PAIN Lower Extremity Artery Uni Ltd TECHNIQUE: Real time images, spectral wave analysis, Doppler color flow analysis and measurement of the arterial velocities of the bilateral lower extremities was performed. COMPARISON: None available for comparison FINDINGS: The right common femoral artery shows triphasic tracings and a peak systolic velocity of 9 5 cm/s. Triphasic tracings are also obtained at the right superficial femoral, popliteal, posterior tibial, a nd dorsalis pedis arteries. There is no focal increase in systolic velocity. IMPRESSION: Normal triphasic tracings throughout the right lower extremity with no evidence of signi ficant atherosclerotic disease. Electronically signed by: Francis Mabry MD 02/24/2023 12:09 AM CDT Due to temporary technical issues with the PACS/Fluency reporting system, reports are being signed by the in house radiologists without review as a courtesy to insure prompt reporting. The interpreting radiologist is fully responsible for the content of the report.
--- NOTE | 2023-02-27 12:45 | EKG ---
Test Date: 2023-02-24 Test Time: 02:28:36 Tire Rebuilder: BETHANY MEASUREMENT RESULTS: Intervals: Rate: 95 ME: 150 QRSD: 106 QT: 374 QTc: 469 [place]: P: 41 ME: 150 QRS: -42 T: 33 INTERPRETIVE STATEMENTS: Normal sinus rhythm Left axis deviation Anterior infarct, age undetermined Abnormal ECG Compared to ECG 02/24/2023 02:28:02 Left-axis deviation now present Left anterior fascicular block no longer present Myocardial infarct finding still present Electronically Signed On 02-27-23 12:37:51 CDT by Baldo Daley
== END 2023-02-24 07:04 ==
LOC: ER 21:04
DX: A41.9 Sepsis, unspecified organism (principal); N39.0 Urinary tract infection, site not specified; K65.1 Peritoneal abscess; D72.825 Bandemia; Z85.46 Personal history of malignant neoplasm of prostate; Z88.0 Allergy status to penicillin; Z87.442 Personal history of urinary calculi; Z20.822 Contact with and (suspected) exposure to COVID-19
CPT/HCPCS: 93005 ×2; 87040 ×2; 87088; 85025; 81001; 87086; 36415; 83605; 83690; 80053; 76377; 74176; 93926; 93971; 87811; J3360; J1100; J1170 ×2; J2405; J7050; J7040; J7030; J0692; J0696; 99285